=== PATIENT | male | born 1945 | race Caucasian/White ===

== ENCOUNTER → 2017-06-05 08:03 | Outpatient (CLI) | payer MEDICARE, BC, SELFPAY ==
[2017-06-05 13:36] LABS: Basophils % 0.6 % (0.1-2.0); Eosinophils # 0.2 K/mm3 (0.0-0.4); Eosinophils % 3.7 % (0.1-12.0); Hematocrit 41.1 % (42.0-52.0); Hemoglobin 13.4 g/dL (14.1-18.0); Lymphocytes # 0.9 K/mm3 (0.7-4.5); Lymphocytes % 15.7 K/mm3 (10-50); Mean Corpuscular HGB Conc 32.6 g/dL (31.8-35.4); Mean Corpuscular Hemoglobin 32.6 pg (27.0-31.2); Mean Corpuscular Volume 100.2 fl (80-94); Mean Platelet Volume 7.6 fl (7.4-10.4); Monocytes # 0.3 K/mm3 (0.1-1.0); Monocytes % 4.9 % (1.7-9.3); Neutrophils # 4.4 K/mm3 (1.8-7.8); Neutrophils % 75.2 % (37.0-80.0); Platelet Count 229 K/mm3 (142-424); Red Blood Count 4.11 M/mm3 (4.60-6.20); Red Cell Distribution Width 13.6 % (11.5-17.5); White Blood Count 5.8 K/mm3 (4.8-10.8)
[2017-06-05 13:42] LABS: Hemoglobin A1C 5.5 % (0.0-7.0)
[2017-06-05 14:09] LABS: Alanine Aminotransferase 30 U/L (12-78); Albumin Level 3.8 gm/dL (3.4-5.0); Albumin/Globulin Ratio 1.5 (1.1-1.8); Alkaline Phosphatase 48 U/L (46-116); Anion Gap 10.7 mEq/L (5-15); Aspartate Amino Transferase 18 U/L (15-37); Bilirubin,Total 0.7 mg/dL (0.2-1.0); Blood Urea Nitrogen 12 mg/dL (7-18); Calcium 8.8 mg/dL (8.5-10.1); Carbon Dioxide 29 mmol/L (21.0-32.0); Chol/HDL Ratio 1.9 (1-3.5); Cholesterol 140 mg/dL (140-200); Creatinine,Serum 1.17 mg/dL (0.70-1.30); Estimated Glomerular Filt Rate > 60 ml/min (>60); GFR (African American) > 60 ML/MIN (>60); Globulin 2.5 gm/dl (1.3-3.2); Glucose 101 mg/dL (74-106); HDL Cholesterol 75 mg/dL (27-67); LDL Cholesterol 57 mg/dL (0-130); Potassium 4.7 mmoL/L (3.5-5.1); Sodium 143 mmol/L (136-145); Total Protein,Serum 6.3 gm/dL (6.4-8.2); Triglycerides 41 mg/dL (30-200); VLDL Cholesterol 8 mg/dL (0-40)
[2017-06-05 14:32] LABS: Chloride 108 mmol/L (98-107)
== END ==
PROVIDERS: PCP Internal Medicine Adolescent Medicine; Visit Provider Internal Medicine Adolescent Medicine
DX: I10 Essential (primary) hypertension (principal); E78.5 Hyperlipidemia, unspecified; E11.9 Type 2 diabetes mellitus without complications
CPT/HCPCS: 36415; 80053; 80061; 83036; 85025

== ENCOUNTER → 2017-12-31 08:24 | Outpatient (CLI) | payer MEDICARE, BC, SELFPAY ==
[2017-12-31 14:01] LABS: Basophils % 0.6 % (0.1-2.0); Eosinophils # 0.2 K/mm3 (0.0-0.4); Eosinophils % 4.1 % (0.1-12.0); Hematocrit 44.7 % (42.0-52.0); Hemoglobin 14.7 g/dL (14.1-18.0); Lymphocytes % 24.3 K/mm3 (10-50); Mean Corpuscular HGB Conc 32.8 g/dL (31.8-35.4); Mean Corpuscular Hemoglobin 32.5 pg (27.0-31.2); Mean Corpuscular Volume 99.3 fl (80-94); Mean Platelet Volume 7.1 fl (7.4-10.4); Monocytes # 0.3 K/mm3 (0.1-1.0); Monocytes % 6.1 % (1.7-9.3); Neutrophils # 2.7 K/mm3 (1.8-7.8); Neutrophils % 64.9 % (37.0-80.0); Platelet Count 231 K/mm3 (142-424); Red Blood Count 4.51 M/mm3 (4.60-6.20); Red Cell Distribution Width 13.8 % (11.5-17.5); White Blood Count 4.2 K/mm3 (4.8-10.8)
[2017-12-31 14:09] LABS: Alanine Aminotransferase 35 U/L (12-78); Albumin Level 3.9 gm/dL (3.4-5.0); Albumin/Globulin Ratio 1.3 (1.1-1.8); Alkaline Phosphatase 52 U/L (46-116); Anion Gap 15.2 mEq/L (5-15); Aspartate Amino Transferase 19 U/L (15-37); Bilirubin,Total 0.7 mg/dL (0.2-1.0); Blood Urea Nitrogen 19 mg/dL (7-18); Calcium 9.4 mg/dL (8.5-10.1); Carbon Dioxide 27 mmol/L (21.0-32.0); Chloride 107 mmol/L (98-107); Chol/HDL Ratio 1.9 (1-3.5); Cholesterol 138 mg/dL (140-200); Creatinine,Serum 1.08 mg/dL (0.70-1.30); Estimated Glomerular Filt Rate 68 ml/min (>60); GFR (African American) 82 ML/MIN (>60); Glucose 103 mg/dL (74-106); HDL Cholesterol 71 mg/dL (27-67); LDL Cholesterol 55 mg/dL (0-130); Potassium 5.2 mmoL/L (3.5-5.1); Sodium 144 mmol/L (136-145); Total Protein,Serum 6.9 gm/dL (6.4-8.2); Triglycerides 60 mg/dL (30-200); VLDL Cholesterol 12 mg/dL (0-40)
[2017-12-31 14:14] LABS: Hemoglobin A1C 5.7 % (0.0-7.0)
== END ==
PROVIDERS: Visit Provider Internal Medicine Adolescent Medicine
DX: I10 Essential (primary) hypertension (principal); E11.9 Type 2 diabetes mellitus without complications; E78.5 Hyperlipidemia, unspecified
CPT/HCPCS: 36415; 80053; 80061; 83036; 85025

== ENCOUNTER → 2018-02-22 08:09 | Outpatient (CLI) | payer MEDICARE, BC, SELFPAY ==
[2018-02-22 14:23] LABS: Alanine Aminotransferase 32 U/L (12-78); Albumin Level 3.7 gm/dL (3.4-5.0); Albumin/Globulin Ratio 1.3 (1.1-1.8); Alkaline Phosphatase 55 U/L (46-116); Anion Gap 13.9 mEq/L (5-15); Aspartate Amino Transferase 15 U/L (15-37); Blood Urea Nitrogen 23 mg/dL (7-18); Calcium 8.9 mg/dL (8.5-10.1); Carbon Dioxide 29 mmol/L (21.0-32.0); Chloride 110 mmol/L (98-107); Creatinine,Serum 1.13 mg/dL (0.70-1.30); Estimated Glomerular Filt Rate 64 ml/min (>60); GFR (African American) 78 ML/MIN (>60); Globulin 2.9 gm/dl (1.3-3.2); Glucose 107 mg/dL (74-106); Potassium 4.9 mmoL/L (3.5-5.1); Sodium 148 mmol/L (136-145); Total Protein,Serum 6.6 gm/dL (6.4-8.2)
[2018-02-22 15:30] LABS: Basophils % 0.8 % (0.1-2.0); Eosinophils # 0.2 K/mm3 (0.0-0.4); Eosinophils % 3.5 % (0.1-12.0); Hemoglobin 13.9 g/dL (14.1-18.0); Lymphocytes # 1.2 K/mm3 (0.7-4.5); Lymphocytes % 24.4 K/mm3 (10-50); Mean Corpuscular HGB Conc 33.1 g/dL (31.8-35.4); Mean Corpuscular Hemoglobin 32.8 pg (27.0-31.2); Mean Corpuscular Volume 99.3 fl (80-94); Mean Platelet Volume 7.9 fl (7.4-10.4); Monocytes # 0.4 K/mm3 (0.1-1.0); Monocytes % 7.6 % (1.7-9.3); Neutrophils % 63.7 % (37.0-80.0); Platelet Count 223 K/mm3 (142-424); Red Blood Count 4.23 M/mm3 (4.60-6.20); White Blood Count 4.8 K/mm3 (4.8-10.8)
[2018-02-22 15:32] LABS: Hemoglobin A1C 5.2 % (0.0-7.0)
== END ==
PROVIDERS: PCP Internal Medicine Adolescent Medicine; Visit Provider Internal Medicine Adolescent Medicine
DX: E11.9 Type 2 diabetes mellitus without complications (principal); E78.5 Hyperlipidemia, unspecified
CPT/HCPCS: 36415; 80053; 83036; 85025

== ENCOUNTER → 2018-05-03 07:34 | Outpatient (CLI) | payer MEDICARE, BC, SELFPAY ==
[2018-05-03 13:52] LABS: Hemoglobin A1C 5.4 % (0.0-7.0)
[2018-05-03 14:08] LABS: Alanine Aminotransferase 32 U/L (12-78); Albumin Level 3.8 gm/dL (3.4-5.0); Albumin/Globulin Ratio 1.3 (1.1-1.8); Alkaline Phosphatase 48 U/L (46-116); Anion Gap 12.4 mEq/L (5-15); Aspartate Amino Transferase 21 U/L (15-37); Bilirubin,Total 0.9 mg/dL (0.2-1.0); Blood Urea Nitrogen 20 mg/dL (7-18); Calcium 9.1 mg/dL (8.5-10.1); Carbon Dioxide 29 mmol/L (21.0-32.0); Chloride 106 mmol/L (98-107); Chol/HDL Ratio 1.7 (1-3.5); Cholesterol 138 mg/dL (140-200); Creatinine,Serum 1.03 mg/dL (0.70-1.30); Estimated Glomerular Filt Rate 71 ml/min (>60); GFR (African American) 86 ML/MIN (>60); Glucose 105 mg/dL (74-106); HDL Cholesterol 81 mg/dL (27-67); LDL Cholesterol 49 mg/dL (0-130); Potassium 4.4 mmoL/L (3.5-5.1); Sodium 143 mmol/L (136-145); Total Protein,Serum 6.8 gm/dL (6.4-8.2); Triglycerides 42 mg/dL (30-200); Uric Acid 6.1 mg/dL (2.6-7.2); VLDL Cholesterol 8 mg/dL (0-40)
[2018-05-03 14:49] LABS: Basophils # 0.1 K/mm3 (0-0.2); Basophils % 1.1 % (0.1-2.0); Eosinophils # 0.2 K/mm3 (0.0-0.4); Eosinophils % 3.5 % (0.1-12.0); Hematocrit 44.4 % (42.0-52.0); Hemoglobin 14.4 g/dL (14.1-18.0); Lymphocytes # 1.1 K/mm3 (0.7-4.5); Lymphocytes % 24.9 % (10-50); Mean Corpuscular HGB Conc 32.4 g/dL (31.8-35.4); Mean Corpuscular Hemoglobin 32.3 pg (27.0-31.2); Mean Corpuscular Volume 99.6 fl (80-94); Mean Platelet Volume 7.8 fl (7.4-10.4); Monocytes # 0.3 K/mm3 (0.1-1.0); Neutrophils # 2.7 K/mm3 (1.8-7.8); Neutrophils % 63.4 % (37.0-80.0); Platelet Count 233 K/mm3 (142-424); Red Blood Count 4.46 M/mm3 (4.60-6.20); Red Cell Distribution Width 13.9 % (11.5-17.5); White Blood Count 4.3 K/mm3 (4.8-10.8)
== END ==
PROVIDERS: PCP Internal Medicine Adolescent Medicine; Visit Provider Internal Medicine Adolescent Medicine
DX: E11.9 Type 2 diabetes mellitus without complications (principal); E78.5 Hyperlipidemia, unspecified; M10.072 Idiopathic gout, left ankle and foot
CPT/HCPCS: 36415; 80053; 80061; 83036; 84550; 85025

== ENCOUNTER → 2018-08-13 07:25 | Outpatient (CLI) | payer MEDICARE, BC, SELFPAY ==
[2018-08-13 13:46] LABS: Basophils % 0.8 % (0.1-2.0); Eosinophils # 0.2 K/mm3 (0.0-0.4); Eosinophils % 3.7 % (0.1-12.0); Hematocrit 40.6 % (42.0-52.0); Lymphocytes # 1.1 K/mm3 (0.7-4.5); Mean Corpuscular HGB Conc 34.6 g/dL (31.8-35.4); Mean Corpuscular Hemoglobin 33.6 pg (27.0-31.2); Mean Corpuscular Volume 97.1 fl (80-94); Mean Platelet Volume 7.2 fl (7.4-10.4); Monocytes # 0.3 K/mm3 (0.1-1.0); Monocytes % 6.3 % (1.7-9.3); Neutrophils # 2.6 K/mm3 (1.8-7.8); Neutrophils % 63.2 % (37.0-80.0); Platelet Count 231 K/mm3 (142-424); Red Blood Count 4.18 M/mm3 (4.60-6.20); Red Cell Distribution Width 13.6 % (11.5-17.5); White Blood Count 4.2 K/mm3 (4.8-10.8)
[2018-08-13 15:12] LABS: Alanine Aminotransferase 35 U/L (12-78); Albumin Level 3.7 gm/dL (3.4-5.0); Albumin/Globulin Ratio 1.3 (1.1-1.8); Alkaline Phosphatase 56 U/L (46-116); Anion Gap 15.1 mEq/L (5-15); Aspartate Amino Transferase 26 U/L (15-37); Blood Urea Nitrogen 24 mg/dL (7-18); Calcium 8.9 mg/dL (8.5-10.1); Carbon Dioxide 25 mmol/L (21.0-32.0); Chloride 106 mmol/L (98-107); Chol/HDL Ratio 1.7 (1-3.5); Cholesterol 131 mg/dL (140-200); Creatinine,Serum 0.97 mg/dL (0.70-1.30); Estimated Glomerular Filt Rate 76 ml/min (>60); GFR (African American) 92 ML/MIN (>60); Globulin 2.9 gm/dl (1.3-3.2); Glucose 92 mg/dL (74-106); HDL Cholesterol 75 mg/dL (27-67); LDL Cholesterol 50 mg/dL (0-130); Potassium 4.1 mmoL/L (3.5-5.1); Sodium 142 mmol/L (136-145); Total Protein,Serum 6.6 gm/dL (6.4-8.2); Triglycerides 29 mg/dL (30-200); Uric Acid 6.4 mg/dL (2.6-7.2); VLDL Cholesterol 6 mg/dL (0-40)
[2018-08-13 16:02] LABS: Hemoglobin A1C 5.5 % (0.0-7.0)
== END ==
PROVIDERS: PCP Internal Medicine Adolescent Medicine; Visit Provider Internal Medicine Adolescent Medicine
DX: E11.9 Type 2 diabetes mellitus without complications (principal); M10.072 Idiopathic gout, left ankle and foot
CPT/HCPCS: 36415; 80053; 80061; 83036; 84550; 85025

== ENCOUNTER → 2018-11-05 07:47 | Outpatient (CLI) | payer MEDICARE, BC, SELFPAY ==
[2018-11-05 14:43] LABS: Alanine Aminotransferase 31 U/L (12-78); Albumin Level 3.7 gm/dL (3.4-5.0); Albumin/Globulin Ratio 1.3 (1.1-1.8); Alkaline Phosphatase 54 U/L (46-116); Anion Gap 15.5 mEq/L (5-15); Aspartate Amino Transferase 20 U/L (15-37); Bilirubin,Total 0.8 mg/dL (0.2-1.0); Blood Urea Nitrogen 27 mg/dL (7-18); Calcium 9.1 mg/dL (8.5-10.1); Carbon Dioxide 26 mmol/L (21.0-32.0); Chloride 106 mmol/L (98-107); Cholesterol 145 mg/dL (140-200); Creatinine,Serum 1.13 mg/dL (0.70-1.30); Estimated Glomerular Filt Rate 64 ml/min (>60); Free Thyroxine Index 1.6 ug/dL (5.93-13.13); GFR (African American) 77 ML/MIN (>60); Globulin 2.8 gm/dl (1.3-3.2); Glucose 104 mg/dL (74-106); HDL Cholesterol 72 mg/dL (27-67); LDL Cholesterol 59 mg/dL (0-130); Potassium 4.5 mmoL/L (3.5-5.1); Sodium 143 mmol/L (136-145); T4 (Thyroxine) 4.6 ug/dl (4.7-13.3); Thyroid Stimulating Hormone 4.37 uIU/ml (0.358-3.740); Total Protein,Serum 6.5 gm/dL (6.4-8.2); Triglycerides 68 mg/dL (30-200); Triiodothryronine (T3) Uptake 35 % (31-39); VLDL Cholesterol 14 mg/dL (0-40)
[2018-11-05 14:44] LABS: Hemoglobin A1C 5.2 % (0.0-7.0)
== END ==
PROVIDERS: PCP Internal Medicine Adolescent Medicine; Visit Provider Internal Medicine Adolescent Medicine
DX: E11.9 Type 2 diabetes mellitus without complications (principal); E78.5 Hyperlipidemia, unspecified; E01.0 Iodine-deficiency related diffuse (endemic) goiter
CPT/HCPCS: 36415; 80053; 80061; 83036; 84436; 84443; 84479

== ENCOUNTER → 2018-12-20 07:06 | Outpatient (CLI) | payer MEDICARE, BC, SELFPAY ==
[2018-12-20 13:43] LABS: Free Thyroxine Index 2.5 ug/dL (5.93-13.13); T4 (Thyroxine) 6.5 ug/dl (4.7-13.3); Thyroid Stimulating Hormone 1.32 uIU/ml (0.358-3.740); Triiodothryronine (T3) Uptake 39 % (31-39)
== END ==
PROVIDERS: PCP Internal Medicine Adolescent Medicine; Visit Provider Internal Medicine Adolescent Medicine
DX: E03.9 Hypothyroidism, unspecified (principal)
CPT/HCPCS: 36415; 84436; 84443; 84479

== ENCOUNTER → 2019-01-22 12:44 | Outpatient (CLI) | payer MEDICARE, BC, SELFPAY | PROVIDERS: PCP Internal Medicine Adolescent Medicine; Visit Provider Internal Medicine Adolescent Medicine | DX: G47.33 Obstructive sleep apnea (adult) (pediatric) (principal) ==

== ENCOUNTER → 2019-01-28 13:11 | Outpatient (CLI) | payer MEDICARE, BC, SELFPAY | PROVIDERS: PCP Internal Medicine Adolescent Medicine; Visit Provider Internal Medicine Adolescent Medicine | DX: G47.33 Obstructive sleep apnea (adult) (pediatric) (principal) | CPT/HCPCS: G0399 ==

== ENCOUNTER → 2019-03-03 07:39 | Outpatient (CLI) | payer MEDICARE, BC, SELFPAY ==
[2019-03-03 14:08] LABS: Basophils % 0.8 % (0.1-2.0); Eosinophils # 0.2 K/mm3 (0.0-0.4); Eosinophils % 3.8 % (0.1-12.0); Hematocrit 41.8 % (42.0-52.0); Hemoglobin 13.1 g/dL (14.1-18.0); Lymphocytes # 1.1 K/mm3 (0.7-4.5); Lymphocytes % 24.5 % (10-50); Mean Corpuscular HGB Conc 31.4 g/dL (31.8-35.4); Mean Corpuscular Hemoglobin 31.9 pg (27.0-31.2); Mean Corpuscular Volume 101.6 fl (80-94); Mean Platelet Volume 7.7 fl (7.4-10.4); Monocytes # 0.4 K/mm3 (0.1-1.0); Monocytes % 8.2 % (1.7-9.3); Neutrophils # 2.9 K/mm3 (1.8-7.8); Neutrophils % 62.7 % (37.0-80.0); Platelet Count 243 K/mm3 (142-424); Red Blood Count 4.12 M/mm3 (4.60-6.20); Red Cell Distribution Width 14.3 % (11.5-17.5); White Blood Count 4.6 K/mm3 (4.8-10.8)
[2019-03-03 14:55] LABS: Hemoglobin A1C 5.9 % (0.0-7.0)
[2019-03-03 15:01] LABS: Alanine Aminotransferase 30 U/L (12-78); Albumin Level 3.8 gm/dL (3.4-5.0); Albumin/Globulin Ratio 1.3 (1.1-1.8); Alkaline Phosphatase 50 U/L (46-116); Aspartate Amino Transferase 17 U/L (15-37); Bilirubin,Total 0.9 mg/dL (0.2-1.0); Blood Urea Nitrogen 24 mg/dL (7-18); Calcium 9.4 mg/dL (8.5-10.1); Chloride 105 mmol/L (98-107); Chol/HDL Ratio 1.9 (1-3.5); Cholesterol 137 mg/dL (140-200); Creatinine,Serum 1.18 mg/dL (0.70-1.30); Estimated Glomerular Filt Rate 61 ml/min (>60); GFR (African American) 74 ML/MIN (>60); Globulin 2.9 gm/dl (1.3-3.2); Glucose 102 mg/dL (74-106); HDL Cholesterol 73 mg/dL (27-67); LDL Cholesterol 47 mg/dL (0-130); Potassium 4.3 mmoL/L (3.5-5.1); Sodium 143 mmol/L (136-145); Thyroid Stimulating Hormone 1.29 uIU/ml (0.358-3.740); Total Protein,Serum 6.7 gm/dL (6.4-8.2); Triglycerides 84 mg/dL (30-200); VLDL Cholesterol 17 mg/dL (0-40)
[2019-03-03 15:13] LABS: Anion Gap 14.3 mEq/L (5-15); Carbon Dioxide 28 mmol/L (21.0-32.0)
== END ==
PROVIDERS: PCP Internal Medicine Adolescent Medicine; Visit Provider Internal Medicine Adolescent Medicine
DX: I10 Essential (primary) hypertension (principal); E11.9 Type 2 diabetes mellitus without complications; E78.5 Hyperlipidemia, unspecified
CPT/HCPCS: 36415; 80053; 80061; 83036; 84443; 85025

== ENCOUNTER → 2019-07-08 07:59 | Outpatient (CLI) | payer MEDICARE, BC, SELFPAY ==
[2019-07-08 13:34] LABS: Basophils % 0.9 % (0.1-2.0); Eosinophils # 0.2 K/mm3 (0.0-0.4); Eosinophils % 3.5 % (0.1-12.0); Hematocrit 40.6 % (42.0-52.0); Hemoglobin 13.7 g/dL (14.1-18.0); Lymphocytes # 0.8 K/mm3 (0.7-4.5); Lymphocytes % 17.9 % (10-50); Mean Corpuscular HGB Conc 33.7 g/dL (31.8-35.4); Mean Corpuscular Hemoglobin 33.6 pg (27.0-31.2); Mean Corpuscular Volume 99.6 fl (80-94); Mean Platelet Volume 8.1 fl (7.4-10.4); Monocytes # 0.3 K/mm3 (0.1-1.0); Monocytes % 5.7 % (1.7-9.3); Neutrophils # 3.3 K/mm3 (1.8-7.8); Neutrophils % 71.9 % (37.0-80.0); Platelet Count 272 K/mm3 (142-424); Red Blood Count 4.08 M/mm3 (4.60-6.20); Red Cell Distribution Width 13.8 % (11.5-17.5); White Blood Count 4.6 K/mm3 (4.8-10.8)
[2019-07-08 13:50] LABS: Alanine Aminotransferase 29 U/L (12-78); Albumin Level 3.8 gm/dL (3.4-5.0); Albumin/Globulin Ratio 1.5 (1.1-1.8); Alkaline Phosphatase 53 U/L (46-116); Anion Gap 14.5 mEq/L (5-15); Aspartate Amino Transferase 20 U/L (15-37); Bilirubin,Total 0.9 mg/dL (0.2-1.0); Blood Urea Nitrogen 20 mg/dL (7-18); Carbon Dioxide 28 mmol/L (21.0-32.0); Chloride 107 mmol/L (98-107); Chol/HDL Ratio 1.9 (1-3.5); Cholesterol 131 mg/dL (140-200); Creatinine,Serum 1.13 mg/dL (0.70-1.30); Estimated Glomerular Filt Rate 64 ml/min (>60); GFR (African American) 77 ML/MIN (>60); Globulin 2.6 gm/dl (1.3-3.2); Glucose 100 mg/dL (74-106); HDL Cholesterol 69 mg/dL (27-67); LDL Cholesterol 46 mg/dL (0-130); Potassium 4.5 mmoL/L (3.5-5.1); Sodium 145 mmol/L (136-145); Thyroid Stimulating Hormone 0.79 uIU/ml (0.358-3.740); Total Protein,Serum 6.4 gm/dL (6.4-8.2); Triglycerides 78 mg/dL (30-200); VLDL Cholesterol 16 mg/dL (0-40)
[2019-07-08 14:14] LABS: Hemoglobin A1C 5.3 % (0.0-7.0)
== END ==
PROVIDERS: PCP Internal Medicine Adolescent Medicine; Visit Provider Internal Medicine Adolescent Medicine
DX: E78.5 Hyperlipidemia, unspecified (principal); E11.9 Type 2 diabetes mellitus without complications; E03.9 Hypothyroidism, unspecified; I10 Essential (primary) hypertension
CPT/HCPCS: 36415; 80053; 80061; 83036; 84443; 85025

== ENCOUNTER → 2019-12-09 07:02 | Outpatient (CLI) | payer MEDICARE, BC, SELFPAY ==
[2019-12-09 13:35] LABS: Basophils % 0.8 % (0.1-2.0); Eosinophils # 0.2 K/mm3 (0.0-0.4); Eosinophils % 3.9 % (0.1-12.0); Hematocrit 41.5 % (42.0-52.0); Hemoglobin 14.2 g/dL (14.1-18.0); Lymphocytes % 18.9 % (10-50); Mean Corpuscular HGB Conc 34.2 g/dL (31.8-35.4); Mean Corpuscular Hemoglobin 34.3 pg (27.0-31.2); Mean Corpuscular Volume 100.2 fl (80-94); Mean Platelet Volume 8.4 fl (7.4-10.4); Monocytes # 0.3 K/mm3 (0.1-1.0); Monocytes % 6.5 % (1.7-9.3); Neutrophils # 3.6 K/mm3 (1.8-7.8); Platelet Count 233 K/mm3 (142-424); Red Blood Count 4.14 M/mm3 (4.60-6.20); Red Cell Distribution Width 14.3 % (11.5-17.5); White Blood Count 5.1 K/mm3 (4.8-10.8)
[2019-12-09 13:42] LABS: Alanine Aminotransferase 20 U/L (12-78); Albumin Level 4.3 g/dl (3.5-5.0); Albumin/Globulin Ratio 1.7 (1.1-1.8); Alkaline Phosphatase 61 U/L (38-126); Anion Gap 11.1 mEq/L (5-15); Aspartate Amino Transferase 30 U/L (17-59); Blood Urea Nitrogen 23 mg/dl (9-20); Calcium 9.5 mg/dl (8.4-10.2); Carbon Dioxide 28 mmol/L (22.0-30.0); Chloride 104 mmol/L (98-107); Chol/HDL Ratio 1.7 (1-3.5); Cholesterol 142 mg/dl (140-200); Estimated Glomerular Filt Rate 66 ml/min (>60); GFR (African American) 80 ML/MIN (>60); Globulin 2.6 g/dL (1.3-3.2); Glucose 107 mg/dl (74-100); HDL Cholesterol 85 mg/dl (40-60); Potassium 4.1 mmoL/L (3.5-5.1); Sodium 139 mmol/L (136-145); Total Protein,Serum 6.9 g/dl (6.3-8.2); Triglycerides 89 mg/dl (30-150); VLDL Cholesterol 18 mg/dL (0-40)
[2019-12-09 13:54] LABS: Direct LDL Cholesterol 46.64 mg/dL (100-129)
[2019-12-09 14:14] LABS: Thyroid Stimulating Hormone 2.28 uIU/mL (0.465-4.68)
[2019-12-09 15:30] LABS: Hemoglobin A1C 5.2 % (4.0-6.0)
== END ==
PROVIDERS: Visit Provider Internal Medicine Adolescent Medicine
DX: E11.9 Type 2 diabetes mellitus without complications (principal); E78.5 Hyperlipidemia, unspecified; E01.0 Iodine-deficiency related diffuse (endemic) goiter
CPT/HCPCS: 36415; 80053; 80061; 83036; 84443; 85025

== ENCOUNTER 2020-06-12 10:32 | Emergency (ER) | payer MEDICARE, BC, SELFPAY ==
[2020-06-12 10:50] VITALS: BP 140/73; PULSE 78; RESP 19; TEMP 36.6; O2SAT 100; BMI 24.6
--- NOTE | 2020-06-12 11:08 | HMH.EDUTC ---
[facility] [place] Clinical Impression: Exposure to COVID-19 virus Disposition: Home, Self-Care Condition on Discharge: Good Instructions: DI for COVID-19 (Suspected or Confirmed ), COVID-19: Testing and Tracing, Preventing the Spread of Coronavirus Discharge Instructions Additional Instructions: *Monitor Temp, Over the counter Motrin or Tylenol as directed/as needed Tylenol every 4 hours and Motrin every 6 hours (as long as your family doctor has told you that you can take it) for fever or pain. and straight to ER if unable to lower temp less than 101.0 after medication given Follow up IMMEDIATELY for new or worsening symptoms or no Noticeable improvement over the next 48-72 hours. 911 for difficulty breathing or swallowing You were tested for today for COVID19 your test result should be back in the next 24-48 hours, you may call to the [facility] to see if your test results are back in the next 48 hours [phone] [facility] hours are 9am-9pm You was given a handout with instructions for Self Quarantine and Self isolation for while you wait on test results and what to do if they are positive If you are positive the Health Dept will be contacting you also Referrals: Jaron Bahena MD [Primary Care Provider] - As needed Time of Disposition: 11:09 Medical Decision Making - Jagdish Inquiry Pt receiving controlled substance: No Jagdish was queried for this patient: No Vital Signs: 06/12/20 10:50 06/12/20 11:10 Temperature 97.8 F 97.8 F Temperature Source Oral Pulse Rate 78 Pulse Rate [Left Brachial] 78 Respiratory Rate 19 19 Blood Pressure 140/73 Blood Pressure [Left Arm] 140/73 Blood Pressure Mean [Left Arm] 95 Blood Pressure Source [Left Arm] Automatic Cuff Blood Pressure Position [Left Arm] Sitting 02 Sat by Pulse Oximetry 100 Oxygen Delivery Method Room Air Orders (Tests/Meds): ORDERS Category Date Time Status Covid-19 Nasal PCR ([facility]) Routine Lab 06/12/20 10:34 Ordered [facility] [place] - General Stated complaint: Covid test Time Seen by Provider: 06/12/20 11:08 Mode of Arrival: Ambulatory Source of Information: Patient Limitations: No Limitations Description of Symptoms (Recalled from Triage Doc. by RN): COVID TEST D/T EXPOSURE; DENIES SYMPTOMS HEENT Symptoms (Recalled from RN notes): No Resp Symptoms (Recalled from RN notes): No Skin Symptoms (Recalled from RN notes): No MS Symptoms (Recalled from RN notes): No Functional Status (Recalled from RN notes): WNL - History of Present Illness Provider Complaint: Patient state that he was recently around his daughter in law that tested positive for COVID States that he isnt having any symptoms but due to close contact wanted to get tested - Related Data Allergies Allergy/AdvReac Type Severity Reaction Status Date / Time No Known Allergies Allergy Verified 06/12/20 11:05 - Worker's Comp Is this a Worker's Comp case?: No H History - Hepatitis A Screen Drug use history?: No High risk sexual behaviors?: No History of sexually transmitted infection?: No Currently employed?: No Childcare worker?: No Do you have indoor plumbing?: Yes Do you have electricity?: Yes Attestation statement:: This patient has been screened for Hepatitis A risk factors. I have reviewed the patient's past medical history: Yes - Social History Alcohol Intake: never Occupational Status: other ROS Obtained: Yes All systems reviewed & no additional complaints, Yes Systems reviewed as appropriate & no additional complaints - Constitutional Constitutional: Reports system reviewed and no additional complaints, except as docu, Denies body ache, Denies chills, Denies fever(s), Denies headache(s) - ENT Ears, Nose, Mouth, and Throat: Reports system reviewed and no additional complaints, except as docu - Cardiovascular Cardiovascular: Reports system reviewed and no additional complaints, except as docu Physical Exam - General General appearance: alert, in no bonita
[2020-06-12 11:10] VITALS: BP 140/73; PULSE 78; RESP 19; TEMP 36.6; O2SAT 100
== END 2020-06-12 11:13 | disposition home or self-care (01) ==
PROVIDERS: Emergency Provider Nurse Practitioner; PCP Internal Medicine Adolescent Medicine
DX: Z20.822 Contact with and (suspected) exposure to COVID-19 (principal)
CPT/HCPCS: 99202; G0463; U0003

== ENCOUNTER → 2020-08-03 11:13 | Outpatient (CLI) | payer MEDICARE, BC, SELFPAY ==
[2020-08-04 12:45] LABS: Alanine Aminotransferase 25 U/L (12-78); Albumin Level 4.3 g/dl (3.5-5.0); Albumin/Globulin Ratio 1.5 (1.1-1.8); Alkaline Phosphatase 67 U/L (38-126); Anion Gap 13.2 mEq/L (5-15); Aspartate Amino Transferase 28 U/L (17-59); Bilirubin,Total 0.9 mg/dl (0.2-1.3); Blood Urea Nitrogen 17 mg/dl (9-20); Calcium 9.8 mg/dl (8.4-10.2); Carbon Dioxide 27 mmol/L (22.0-30.0); Chloride 106 mmol/L (98-107); Chol/HDL Ratio 1.7 (1-3.5); Cholesterol 132 mg/dl (140-200); Estimated Glomerular Filt Rate 73 ml/min (>60); GFR (African American) 89 ML/MIN (>60); Globulin 2.8 g/dL (1.3-3.2); Glucose 95 mg/dl (74-100); HDL Cholesterol 79 mg/dl (40-60); Potassium 5.2 mmoL/L (3.5-5.1); Sodium 141 mmol/L (136-145); Total Protein,Serum 7.1 g/dl (6.3-8.2); Triglycerides 68 mg/dl (30-150); VLDL Cholesterol 14 mg/dL (0-40)
[2020-08-04 12:56] LABS: Direct LDL Cholesterol 37.71 mg/dL (100-129)
[2020-08-04 13:14] LABS: Thyroid Stimulating Hormone 1.27 uIU/mL (0.465-4.68)
[2020-08-04 13:43] LABS: Hemoglobin A1C 5.4 % (4.0-6.0)
== END ==
PROVIDERS: Visit Provider Internal Medicine Adolescent Medicine
DX: E11.9 Type 2 diabetes mellitus without complications (principal); E78.5 Hyperlipidemia, unspecified; E01.0 Iodine-deficiency related diffuse (endemic) goiter
CPT/HCPCS: 80053; 80061; 83036; 84443

== ENCOUNTER → 2021-02-08 20:47 | Outpatient (CLI) | payer MEDICARE, BC, SELFPAY ==
[2021-02-08 21:30] LABS: Alanine Aminotransferase 20 U/L (12-78); Albumin Level 4.1 g/dl (3.5-5.0); Albumin/Globulin Ratio 1.7 (1.1-1.8); Alkaline Phosphatase 48 U/L (38-126); Anion Gap 15.8 mEq/L (5-15); Aspartate Amino Transferase 24 U/L (17-59); Bilirubin,Total 0.8 mg/dl (0.2-1.3); Blood Urea Nitrogen 20 mg/dl (9-20); Calcium 9.5 mg/dl (8.4-10.2); Carbon Dioxide 27 mmol/L (22.0-30.0); Chloride 105 mmol/L (98-107); Cholesterol 133 mg/dl (140-200); Estimated Glomerular Filt Rate 66 ml/min (>60); GFR (African American) 79 ML/MIN (>60); Globulin 2.4 g/dL (1.3-3.2); Glucose 93 mg/dl (74-100); HDL Cholesterol 67 mg/dl (40-60); Potassium 4.8 mmoL/L (3.5-5.1); Sodium 143 mmol/L (136-145); Total Protein,Serum 6.5 g/dl (6.3-8.2); Triglycerides 72 mg/dl (30-150); VLDL Cholesterol 14 mg/dL (0-40)
[2021-02-08 21:41] LABS: Direct LDL Cholesterol 49.95 mg/dL (100-129)
[2021-02-10 08:09] LABS: Hemoglobin A1C 5.4 % (4.0-6.0)
== END ==
PROVIDERS: Visit Provider Internal Medicine Adolescent Medicine
DX: E11.9 Type 2 diabetes mellitus without complications (principal); E78.5 Hyperlipidemia, unspecified
CPT/HCPCS: 80053; 80061; 83036

== ENCOUNTER 2022-04-11 06:14 | Day surgery (SDC) | payer MEDICARE, BC, SELFPAY ==
[2022-04-06 11:53] VITALS: BMI 24.3
[2022-04-11] VITALS (7 sets, daily range): BP systolic 119–148; BP diastolic 60–73; PULSE 60–65; RESP 16–18; TEMP 36.6–36.8; O2SAT 97–100
== END 2022-04-11 08:16 | disposition home or self-care (01) ==
LOC: OR 06:15
PROVIDERS: PCP Internal Medicine Adolescent Medicine; Visit Provider Ophthalmology
DX: H25.813 Combined forms of age-related cataract, bilateral (principal)
CPT/HCPCS: 66984; V2632

== ENCOUNTER → 2022-09-28 07:09 | Outpatient (CLI) | payer MEDICARE, SELFPAY ==
--- NOTE | 2022-09-28 07:14 | CT_ITS ---
FINAL REPORT TECHNIQUE: Axial CT images of the chest were obtained without contrast. Low-dose protocol was utilized. This study was performed with techniques to keep radiation doses as low as reasonably achievable (ALARA). Individualized dose reduction techniques using automated exposure control or adjustment of mA and/or kV according to the patient's size were employed. CLINICAL HISTORY: H/O TOBACCO USE former smoker quit 13 years ago, 2.5ppd x43 years COMPARISON: none FINDINGS: CT CHEST WITHOUT, LOW DOSE SCREENING CT Di Vol: 2.90 mGy DLP: 96.38 mGy*cm No evidence of mediastinal or hilar mass. There are calcified mediastinal and right hilar nodes. There is a left subclavian pacer. The heart size is normal. Moderate to severe coronary artery calcifications are noted. There is no pleural or pericardial effusion. The lung windows show scattered small lung nodules including a 2 mm superior segment left lower lobe nodule on image 42 and a 5 mm nodule posterior left lower lobe on image 58. There are several other small nodules. There is mild emphysema and mild scarring. Several calcified granulomas are present. Limited images of the upper abdomen are unremarkable. IMPRESSION: Several less than 5 mm pulmonary nodules. LR Category 2: 12 month follow-up low-dose chest CT is recommended. Reviewed, Interpreted and Dictated by Rafael Gtz III, MD Transcribed by Erma Archer Authenticated and [facility]
== END ==
PROVIDERS: PCP Internal Medicine Adolescent Medicine; Visit Provider Internal Medicine Adolescent Medicine
DX: Z87.891 Personal history of nicotine dependence (principal); Z12.2 Encounter for screening for malignant neoplasm of respiratory organs
CPT/HCPCS: 71271

== ENCOUNTER 2023-05-30 10:10 | Day surgery (SDC) | payer MEDICARE, SELFPAY ==
[2023-04-24 12:10] VITALS: BMI 23.8
[2023-05-30] VITALS (7 sets, daily range): BP systolic 103–175; BP diastolic 54–85; PULSE 60–82; RESP 14–18; TEMP 36.1–36.6; O2SAT 96–98
[2023-05-30] MEDS: LACTATED RINGERS 1000ML 1,000 ML 100 ML IV (10:44)
--- NOTE | 2023-05-30 10:49 | P.PNANES_ITS ---
[facility] Disclaimer: The information contained in this section may have been updated after the patient was seen, as this information can be updated by other users. Medical History Depression Gout Hemorrhoid History of cataract History of COVID-19 Hyperlipidemia Hypertension Pacemaker Parkinson disease Uses hearing aid Surgical History History of carpal tunnel surgery History of knee surgery History of surgery Family History Other Cancer Family history of cerebral hemorrhage Family history of hypertension Social History Smoking Status: Former smoker years smoked: 45 how long ago did patient quit smokin YEARS AGO alcohol intake: current substance use type: denies use current occupational status: retired Travel in the last 8 weeks: None caffeine: Yes [facility] Anesthesia Checklist Patient Identification Patient Identification: Arm Band and Verbal (Name & ) Structural Data Admitted From: Home Planned Operative Procedure/s: Colonoscopy Consent for Planned Operative Procedure(s) Verified: Yes NPO Status Verified Time NPO: 00:00 Additional verifications Anesthesia Reactions: No Airway Assessment Mallampati Score:: Class III C-Spine Mobility Assessed: Yes TMJ Mobility Assessed: Yes Dentition: Good Dentition Neurological Assessment Level of Consciousness: Awake Hx Seizures: No Numbness or tingling in extremities: No Anesthesia Plan Anesthesia Risk discussed: Yes Anesthesia Plan: Verified ASA Class: II Anesthesia Type: MAC
--- NOTE | 2023-05-30 12:15 | HMH.SCOPE ---
Procedure: Date: 05/30/23 Patient Date of :: 1945 Procedure Performed:: Colonoscopy Indications:: The patient is a 78-year-old who presents for colonoscopy for having a positive Cologuard test Performing Provider:: Benigno Lewis MD Referring Provider:: Jaron Bahena MD Sedation:: See RN records Procedure:: After placing the patient in the left lateral decubitus position, the colonoscopy was gently inserted into the rectum and under direct visualization advanced to the cecum which was identified by transillumination in the right lower quadrant, identification of the ileocecal valve, appendiceal orifice, and cecal strap. Color, texture, mucosa, and anatomy of the colon were carefully examined with the scope. Findings:: Anal canal: normal Rectum: Hemorrhoids Sigmoid colon: Sessile polyp less than 5 mm in size. Removed with cold snare polypectomy. Large mouthed diverticula. The sigmoid colon was angulated Descending colon: normal without polyps or inflammatory changes Splenic flexure: normal Transverse colon: normal without polyps or inflammatory changes Hepatic flexure: normal Ascending colon: Diverticulosis Cecum: normal Terminal ileum: not visualized Impression: Polyp of sigmoid colon Diverticulosis Tortuous sigmoid colon Recommendations:: Await pathology results Higher fiber diet Complications:: None Estimated blood obtained (mL): 0 Colonoscopy Component Colonoscopy Component Was a colonoscopy performed during today's procedure?: Yes Recommended follow up colonoscopy of at least 10 years?: No If no, follow up colonoscopy recommended in ___ years?: See below Reason for not recommending >/= 10 yr follow-up interval?: No further screening to be recommended due to age
== END 2023-05-30 12:55 | disposition home or self-care (01) ==
PROVIDERS: PCP Internal Medicine Adolescent Medicine; Visit Provider Internal Medicine
PROC: (CPT 45385; principal; 2023-05-30 12:00)
DX: R19.5 Other fecal abnormalities (principal); K64.8 Other hemorrhoids; K57.30 Diverticulosis of large intestine without perforation or abscess without bleeding; K56.2 Volvulus; K63.5 Polyp of colon
CPT/HCPCS: 45385

== ENCOUNTER 2024-12-24 06:38 | Outpatient (CLI) | payer MEDICARE, SELFPAY ==
--- OUTSIDE RECORDS SUMMARY | 2024-09-06 17:30 | XMS_ITS ---
Author Organization [facility] Address [address] [facility] [address] [place] [address] Care Team Providers Care Personal Injury Attorney Name Role Phone JyotiJaron leigh Primary Care Provider [phone] Migration, Provider Unavailable Unavailable Allergies Allergen (clinical drug ingredient) Drug/Non Drug Allergy documented on EMR Reaction Allergy Type Onset Date Status Sulfamethoxazole Unknown Drug Allergy Active REASON FOR VISIT [facility] To [facility] Conversion Encounter Medications Medication SIG (Take, Route, [...] Active Encounters Encounter [facility] Date [facility] [address] [facility] [address] [place] [address] 09/06/2024 Provider Migration Plan Of Treatment Next Appt Details Provider Name:Jaron Bahena, 12/30/2024 09:30:00 AM, [address] [place] [address], [id number], Progress Notes * Briseyda BRITT JR BDOB: [birth year] (79 yo M)Acc No.[id number]:09/06/2024 Patient: Nabeel EVITA SHIELDS Briseyda Dixon Provider: Shaila sorto Migration :1945 A ge:79 Y S ex:Male Date:09/06/2024 Address:[address] [place], [place] [id number] Pcp:Jaron Bahena Subjective: * Chief Complaints: * [...] Electronic signature of Prov shari Migration on 12/24/2024 at 06:43 AM EDT Sign off status: Pending * Provider: Shaila sorto Migration Date: 09/06/2024 Generated for Thomas nelson/Isabella/Luis on: 12/24/2024 06:43 AM EDT
--- OUTSIDE RECORDS SUMMARY | 2024-11-17 08:20 | XMS_ITS | Encounter Summary ---
Author Organization [facility] Address [address] [id number] Care Team Providers Care Hand Straightener Name Role Phone Jaron Bahena MD Primary Care Provider [phone] Reason for Referral * Consultation (Routine) - Authorized Specialty Diagnoses / Procedures Referred By Shantell cotton Referred To Contact Urology Diagnoses Urinary frequency Jeffery Navarrete MD [address] [address] Phone: tel: fax: [facility] [address] [facility], [address] [place] [address] Phone: tel: fax: Referral ID Status Reason Start Date Expiration Date Visits Requested Visits Authorized [id number] Authorized Specialty Services Required 11/17/2024 05/19/2026 1 1 Scheduling Instructions Urinary hesitancy, frequency, nocturia. * Imaging (Routine) - Pending Review Specialty Diagnoses / Procedures Referred By Shantell cotton Referred To Contact Radiology Diagnoses Dementia associated with other underlying disease, with psychotic disturbance, unspecified dementia severity Parkinson's disease 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 (CMS/HCC) Procedures MR Head wo IV Contrast Jeffery Navarrete MD [address] [place] [phone] Phone: tel: fax: Referral ID Status Reason Start Date Expiration Date V isits Requested Visits Authorized [id number] Pending Review 11/17/2024 05/19/2026 1 1 Reason for Visit * Consultation (Routine) - Closed Specialty Diagnoses / Procedures Referred By Contac t Referred To Contact Neurology Diagnoses Parkinson's disease without dyskinesia, with fluctuations (CMS/HCC) Jaron Bahena MD [address] [place] [address] Phone: tel: fax: Referral ID Status Reason Start Date Expiration Date V isits Requested Visits Authorized [id number] Closed Specialty Services Required 01/22/2024 07/23/2025 1 1 Encounter Details Date Type Department Care Team (Late st Contact Info) Description 11/17/2024 8:20 AM EDT Consult [facility] [address] [place] [address] Jeffery Navarrete MD [address] [facility] [address] [place] [address] Dementia associated with other underlying disease, with psychotic disturbance, unspecified dementia severity (Primary Dx); Parkinson's disease 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 (CMS/HCC); Urinary frequency Social History Tobacco Use Types Packs/Day Years Used Date Smoking Tobacco: Former Cigarettes Smokeless Tobacco: Never Tobacco Cessation:Counseling Given: Not Answered Alcohol Use Standard Drinks/Week Comments Yes 0 (1 standard drink = 0.6 oz pur e alcohol) Sex and Gender Information Value Date Recorded Sex Assigned at Not on file Legal Sex Male 7:37 PM EDT Gender Identity Not on file Sexual Orientation Not on file documented as of this encounter Last Filed Vital Signs Vital Sign Reading Time Taken Comments Blood Pressure 112/62 11/17/2024 8:22 AM EDT Pulse 64 11/17/2024 8:22 AM EDT Temperature - - Respiratory Rate - - Oxygen Saturation 97% 11/17/2024 8:22 AM EDT Inhaled Oxygen Concentration - - Weight 83.3 kg (183 lb 10.3 oz) 11/17/2024 8:22 AM EDT Height 185.7 cm (6' 1.11 ) 11/17/2024 8:22 AM ED T Body Mass Index 24.16 11/17/2024 8:22 AM EDT documented in this encounter Miscellaneous Notes * Progress Notes - Jeffery Navarrete MD - 11/17/2024 8:20 AM EDT Dear Jaron Bahena MD, I had the pleasure of seeing Briseyda Hector who is a 79 y.o. male being seen at the [facility] today for Parkinson's disease. HPI 79 year old man with hypothyroidism, HTN, gout, PD presented for management of parkinsonism. Referred by PCP: Dr. Jaron Bahena. Was following with Dr. Khoa Caceres. He is here with his . Is working part-time. Allergic to Sulfa. No family hx of neurological disorders. Is on Synthroid 50 mcg daily, C/L 1 tab BID. RUE tremor was the first symptom in 2019. Later noted dragging feet when walking. Denies any falls. Also has thought blocks for 5 years and it is bothersome. Also c/o visual hallucinations for 5 years. C/o urinary frequency and nocturia which disturbs sleeps (average wakes up about 9 times per night). Denies urinary incontinence and urinary urgency. No help with tamsulosin. C/o occasional lightheadedness. Denies choking episodes. Denies constipations. RBDs and depression: present. thinks that C/L initiation has led to development of hallucinations. Levodopa: Occasionally helps with tremor. Denies adverse effects. O/E: RUE resting tremor Masked face Decreased eyeblink frequency Hypophonia Jaw tremor. R>L bradykinesia R>L rigidity. Shuffling gait, no freezing. Normal coordination No cortical signs on exam. 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 PLAN: B12, TSH, RPR, Folate MRI brain w/o contrast Refer to urologist Future: consider FDG-PET scan. Hold off on Sinemet. Future: consider starting Aricept. F/u in 6 weeks. Social History Tobacco Use Smoking status: Former Types: Cigarettes Smokeless tobacco: Never Substance Use Topics Alcohol use: Yes Medications Ordered Prior to Encounter[1] Allergies[2] All medications have been reviewed today. Review of Systems All other systems reviewed and are negative. Objective Vitals: 11/17/24 0822 BP: 112/62 Pulse: 64 SpO2: 97% Assessment & Plan Dementia associated with other underlying disease, with psychotic disturbance, unspecified dementiaseverity Orders: Vitamin B12, Serum; Future Folate; Future RPR With Reflex to Titer (Those With Known Syphilis); Future TSH; Future MR Head wo IV Contrast; Future Parkinson's disease 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 (CMS/HCC) Orders: Vitamin B12, Serum; Future Folate; Future RPR With Reflex to Titer (Those With Known Syphilis); Future TSH; Future MR Head wo IV Contrast; Future Urinary frequency Orders: Ambulatory referral to Urology; Future Counseling Documentation: The patient and was counseled regarding risks and benefit of treatment options, instructions for management, patient and family education, and impressions. Education provided was verbal counseling. Additional time was spent in care coordination including medical record review. The total time of encounter was 60 minutes and greater than 50% of the visit was spent in counseling/coordination of care. . [1] Current Outpatient Medications on File Prior to Visit Medication Sig Dispense Refill allopurinol (Zyloprim) 100 MG tablet Take 1 tablet by mouth daily. amLODIPine (Norvasc) 5 MG tablet Take 1 tablet by mouth daily. aspirin 81 MG EC tablet Take 1 tablet by mouth 1 time each day. atorvastatin (Lipitor) 40 MG tablet Take 1 tablet by mouth 1 time each day. carbidopa-levodopa (Sinemet) 25-100 MG tablet Take 2 tablets by mouth daily. cholecalciferol (Vitamin D-3) 25 MCG (1000 UT) capsule Take 1 capsule by mouth 1 time each day. cyanocobalamin (Vitamin B-12) 2500 MCG tablet Take 500 mcg by mouth 1 time each day. levothyroxine (Synthroid, Levoxyl) 50 MCG tablet Take 1 tablet by mouth daily. lisinopril 5 MG tablet Take 1 tablet by mouth daily. metoprolol succinate XL (Toprol-XL) 50 MG 24 hr tablet Take 25 mg by mouth daily. uzfclkxgvacl-pmgkonyf-uhqgp acid-coenzyme q10 (Preservision AREDS 2) capsule Take 1 capsule by mouth daily. pantoprazole (Protonix) 40 MG EC tablet Take 1 tablet by mouth 1 time each day. tamsulosin (Flomax) 0.4 MG 24 hr capsule Take 1 capsule by mouth daily. No current facility-administered medications on file prior to visit. [2] Allergies Allergen Reactions Sulfa Drugs Unknown - Patient states they do not know rxn details Sulfamethoxazole Unknown - Patient states they do not know rxn details Other Reaction(s): Unknown documented in this encounter Plan of Treatment Upcoming Encounters Date Type Department Care Team (Late st Contact Info) Description 12/29/2024 9:40 AM EDT Office Visit [facility] [address] [place] [address] Jeffery Navarrete MD [address] [place] [address] 01/05/2025 2:30 PM EDT Consult [facility] [address] [place] [address] NoKeisha silva M, [employer]DER[employer] [address] [place] [address] Scheduled Orders Name Type Priority Associated Diagnoses Orde r Schedule MR Head wo IV Contrast Imaging Routine Dementia associated with other underlying disease, with psychotic disturbance, unspecified dementia severity Parkinson's disease 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 ([facility]) Expected: 11/17/2024 (Approximate), Expires: 05/21/2026 Scheduled Referrals Name Type Priority Associated Diagnoses Order Schedule Ambulatory referral to Urology Outpatient Referral Routine Urinary frequency Expected: 11/17/2024 (Approximate), Expires: 05/21/2026 documented as of this encounter Results * TSH (11/17/2024 9:52 AM EDT) Thyroid Stimulating Hormone, Plasma 2.12 0.40 - 4.20 uIU/mL 11/17/2024 11:25 AM EDT [facility] Blood Venous blood specimen / Unknown Venipuncture / Unknown 11/17/2024 9:52 AM EDT 11/17/2024 9:53 AM EDT us Jeffery Navarrete MD LAB BLOOD ORDERABLES Final Resul t Performing Organization Address City/[facility]/ZIP Co de Phone Number [facility] [address] [place] [address] * RPR With Reflex to Titer (Those With Known Syphilis) (11/17/2024 9:52 AM EDT) Rapid Plasma Reagin Nonreactive Non Reactive 11/18/2024 1:20 AM EDT [facility] Blood Venous blood specimen / Unknown Venipuncture / Unknown 11/17/2024 9:52 AM EDT 11/17/2024 9:53 AM EDT us Jeffery Navarrete MD LAB BLOOD ORDERABLES Final Resul t Performing Organization Address City/[facility]/ZIP Co de Phone Number [facility] [address] [place] [address] * Folate (11/17/2024 9:52 AM EDT) Folate, Serum >20.0 >4.6 ng/mL 11/17/2024 12:22 PM EDT [facility] Blood Venous blood specimen / Unknown Venipuncture / Unknown 11/17/2024 9:52 AM EDT 11/17/2024 9:53 AM EDT us Jeffery Navarrete MD LAB BLOOD ORDERABLES Final Resul t [facility] [address] [place] [address] * Vitamin B12, Serum (11/17/2024 9:52 AM EDT) Vitamin B12, Serum 865 210 - 1,033 pg/mL 11/17/2024 12:22 PM EDT [facility] Blood Venous blood specimen / Unknown Venipuncture / Unknown 11/17/2024 9:52 AM EDT 11/17/2024 9:53 AM EDT us Jeffery Navarrete MD LAB BLOOD ORDERABLES Final Resul t [facility] [address] [place] [address] documented in this encounter Visit Diagnoses Diagnosis Dementia associated with other underlying disease, with psychotic disturbance, unspecified dementia severity- Primary Parkinson's disease 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 (CMS/HCC) Urinary frequency documented in this encounter Additional Health Concerns Assessment Noted Time A fall risk assessment has been complete d for the patient 11/17/2024 8:26 AM EDT A Body Mass Index follow-up plan has been documented for the patient 11/19/2024 1:52 PM EDT documented as of this encounter Care Teams Hand Straightener Relationship Specialty Start Date End Date Jaron Bahena MD [address] [place] [address] PCP - General 10/15/20 documented as of this encounter
--- OUTSIDE RECORDS SUMMARY | 2024-11-25 07:30 | XMS_ITS ---
Author Organization [facility] Address [address] [facility] [address] [place] [address] Care Team Providers Care Soa Integration Developer Name Role Phone David Bahenahen Primary Care Provider Allergies Allergen (clinical drug ingredient) Drug/Non Drug Allergy documented on EMR Reaction Allergy Type Onset Date Status Sulfamethoxazole Unknown Drug Allergy Active REASON FOR VISIT soa, dizziness, fatigue , speech slurred Medications Medication SIG (Take, Route, Frequency, Duration) Notes Start Date End Date Status Metoprolol Succinate ER 50 MG TAKE 1/2 TABLET ORALLY ONCE A DAY 90 DAYS; Duration: 90 Active amLODIPine Besylate 5 MG 1 tab(s) orally once a day; Duration: 90 days Active Atorvastatin Calcium 40 MG 1 tab(s) orally once a day; Duration: 90 days Active Allopurinol 100 MG 1 tab(s) orally once a day; Duration: 90 days Active Levothyroxine Sodium 50 MCG 1 tab(s) orally once a day; Duration: 90 days Active Farxiga 10 MG 1 tab(s) orally once a day; Duration: 90 days 12/11/2023 Active Lisinopril 5 MG 1 tab(s) orally once a day; Duration: 90 days Active Pantoprazole Sodium 40 MG 1 tab(s) orally once a day; Duration: 90 days Active Aspirin 81 MG 1 cap(s) orally once a day; Duration: 90 days Active ACCU CHECK GLUCOMETER USE DIRECTED E11.9 *Ple ase review for potential replacement for e-prescription and drug interaction check* 05/07/2017 Active Vitamin D3 25 MCG (1000 UT) as directed orally once a day; Duration: 30 day(s) Active B-12 2500 MCG 1 tab(s) sublingually once a day; Duration: 30 day(s) Active ACCU CHECK SOFT CLICK LANCETS DIRECTED ONCE DAILY; Duration: 30 DAYS E11.9 *Please review for potential replacement for e-prescription and drug interaction check* 05/07/2017 Active ACCU CHECK TEST STRIPS DIRECTED ONCE DAILY; Duration: 30 DAYS E11.9 *Please review for potential replacement for e-prescription and drug interaction check* 05/07/2017 Active GLUCOMETER WITH LANCETS AND TEST STRIPS DX: E11.9 DIRECTED TWICE A DAY *Please review for potential replacement for e-prescription and drug interaction check* 06/05/2014 Active Tamsulosin HCl 0.4 MG 1 cap(s) orally once a day; Duration: 90 days 04/08/2024 Active Vital Signs Temperature 97.5 degrees Fahrenheit 11/26/19 25 Blood pressure systolic 118 mm Hg 11/26/19 25 Blood pressure diastolic 74 mm Hg 025 Heart Rate 68 /min 11/25/2024 Height 69 in 11/25/2024 Weight 185 lbs 11/25/2024 BMI 27.32 kg/m2 11/25/2024 Oximetry 98 11/25/2024 Encounters Encounter Location Date Provider Diagnosis [address] [address] 11/25/2024 Jaronjomar Bahena Pacemaker Z95.0 ; Exertional dyspnea R06.09 and Parkinson's disease without dyskinesia, unspecified whether manifestations fluctuate G20.A1 Assessments Encounter Date Diagnosis (ICD Code) Assessment Notes Treatment Notes Treatment Clinical Notes Section Notes 11/25/2024 Pacemaker (ICD-10 - Z95.0) EKG done in office showing appropriate atrial and ventricular pacemaker spikes. Rate seems normal. Reassured, but does need pacemaker check definitely tomorrow. See notes below 11/25/2024 Exertional dyspnea (ICD-10 - R06.09) Exertional dyspnea does not seem to be from fluid overload. They will discuss this with cardiology tomorrow and come back to me in a couple of weeks. Consider further workup at that point. 11/25/2024 Parkinson's disease without dyskinesia, unspecified whether manifestations fluctuate (ICD-10 - G20.A1) I reviewed urology notes. I have asked them to discuss with cardiology tomorrow his pacemaker and where MRI can safely be done. He will see neurology at back in January and will follow along about whether or not further medication will be trialed. To me patient's tremor seems worse off Sinemet. Plan Of Treatment Treatment Notes Assessment Notes Pacemaker EKG done in office showing appropriate atrial and ventricular pacemaker spikes. Rate seems normal. Reassured, but does need pacemaker check definitely tomorrow. See notes below Exertional dyspnea Exertional dyspnea does not seem to be from fluid overload. They will discuss this with cardiology tomorrow and come back to me in a couple of weeks. Consider further workup at that point. Parkinson's disease without dyskinesia, unspecified whether manifestations fluctuate I reviewed urology notes. I have asked them to discuss with cardiology tomorrow his pacemaker and where MRI can safely be done. He will see neurology at back in January and will follow along about whether or not further medication will be trialed. To me patient's tremor seems worse off Sinemet. Next Appt Details Follow Up: 2 Weeks, Reason: Provider Name:Jaron Bahena, 12/30/2024 09:30:00 AM, [address] [place] [address], [phone], Progress Notes * Briseyda BRITT JR BDOB: [birth year] (79 yo M)Acc No.[id number]:11/25/2024 Progress Notes Patient: Nabeel EVITA Briseyda SHIELDS Zack Provider: Nabeel Bahena MD :1945 A ge:79 Y S ex:Male Date:11/25/2024 Address:[address] [place], [place] [id number] Subjective: * Chief Complaints: * 1 . Soa, dizziness, fatigue , speech slurred. * HPI: g en: Here with his to discuss some changes in medication management and some other issues over the past couple of weeks. We had sent him to [facility] neurology-Dr. Navarrete -to get a second opinion about his Parkinson's as he was having some difficulties with Sinemet adjustment from previous neurologist and was having some bad dreams. He saw them on November 17. I reviewed documentation from that visit. Basically Sinemet was discontinued and the differential diagnosis was broad and to include Lewy body dementia versus parkinsonism. MRI has been scheduled. This is to the system so it may take a while. Repeated blood work was done including thyroid and B12 levels which are normal on record review. Since then has noticed increasing shortness of air. She is concerned about his pacemaker. 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 She also wonders about anxiety and some nerves that are leftover from the loss of their son from brain cancer. He has fairly significant exertional dyspnea with any movement such as going up stairs or walking outside in the heat. He denies orthopnea, chest pain, palpitations or ankle swelling. * Medical History: P acemaker-bradycardia, Former smoker - Negative low-dose CT scan 09/24, diabetes wpg-zaqmsle-xjruaxuze diagnosed spring 2014 - dilated eye exam Yearly in august, diastolic CHF with bradycardia requiring pacemaker, Gouty arthritis, Sleep apnea, Hyperlipidemia, Hypertension, Colonoscopy 2012-normal results, GERD [Gastroesophageal reflux disease], Chronic Rhinorrhea, RHETT on sleep study 02/20, Covid -. * Medications: T aking GLUCOMETER WITH LANCETS [...] cap(s) orally once a day , Taking Farxiga 10 MG Tablet 1 tab(s) orally once a day , Taking Lisinopril [...] 1 cap(s) orally once a day , Discontinued Carbidopa-Levodopa 25-100 MG Tablet 1 tab(s) orally 3 times a day , Medication List reviewed and reconciled with the patient * Allergies: S ulfamethoxazole. Objective: * Vitals: N urse: dw, Pain: 0, Temp: 97.5, Pulse O2: 98, RR: 20, HR: 68, BP: 118/74, Ht: 69, Wt: 185, BMI:27.32. * Examination: G eneral Examination: P leasant, talkative, masked facies, tremor noted with characteristics Parkinson features, stiffness and rigidity noted. Lungs are clear, heart rate regular. Pacemaker site looks normal. No ankle edema. Assessment: * Assessment: 1. P acemaker - Z95.0 (Primary) 2 . E xertional dyspnea - R06.09 3 . P arkinson's disease without dyskinesia, unspecified whether manifestations fluctuate - G20.A1 Plan: * Treatment: 2. E xertional dyspnea Notes: Exertional dyspnea does not seem to be from fluid overload. They will discuss this with cardiology tomorrow and come back to me in a couple of weeks. Consider further workup at that point. 3. P arkinson's disease without dyskinesia, unspecified whether manifestations fluctuate Notes: I reviewed urology notes. I have asked them to discuss with cardiology tomorrow his pacemaker and where MRI can safely be done. He will see neurology at back in January and will follow along about whether or not further medication will be trialed. To me patient's tremor seems worse off Sinemet. * Procedure Codes: 9 3000 EKG WITH INTERP. * Follow Up: 2 Weeks * * Sign off status: Completed true * Provider: Nabeel Bahena MD Date: 0 11/25/2024 Generated for Thomas nelson/Isabella/Stevenitting on: 0 12/24/2024 06:43 AM EDT History and Physical Notes * HPI (History of Present Illness) Category Sub-Category Detail Notes Category Not es gen Here with his to discuss some changes in medication management and some other issues over the past couple of weeks. We had sent him to [facility] neurology-Dr. Navarrete -to get a second opinion about his Parkinson's as he was having some difficulties with Sinemet adjustment from previous neurologist and was having some bad dreams. He saw them on November 17. I reviewed documentation from that visit. Basically Sinemet was discontinued and the differential diagnosis was broad and to include Lewy body dementia versus parkinsonism. MRI has been scheduled. This is to the system so it may take a while. Repeated blood work was done including thyroid and B12 levels which are normal on record review. Since then has noticed increasing shortness of air. She is concerned about his pacemaker. 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 She also wonders about anxiety and some nerves that are leftover from the loss of their son from brain cancer. He has fairly significant exertional dyspnea with any movement such as going up stairs or walking outside in the heat. He denies orthopnea, chest pain, palpitations or ankle swelling. Examination Category Sub-Category Detail Notes Category Not es General Examination Pleasant, talkative, masked facies, tremor noted with characteristics Parkinson features, stiffness and rigidity noted. Lungs are clear, heart rate regular. Pacemaker site looks normal. No ankle edema.
--- OUTSIDE RECORDS SUMMARY | 2024-11-26 10:15 | XMS_ITS | Encounter Summary ---
[facility] Address [address] [place] [id number] Care Team Providers Care Hr Operations Advisor Name Role Phone Jaron Bahena MD Primary Care Provider [phone] Reason for Visit * Reason Comments Dizziness Fatigue Shortness of Breath Encounter Details Date Type Department Care Team (Late st Contact Info) Description 11/26/2024 10:15 AM EDT Office Visit [facility] CARDIOLOGY [address] [facility] [address] [place] [address] Mark Herrmann MD [address] [facility] [address] [place] [address] AV block, complete (Primary Dx); Primary hypertension; Mixed hyperlipidemia Social History Tobacco Use Types Packs/Day Years Used Date Smoking Tobacco: Former Cigarettes 1 45 0 08/30/1963 - 08/29/2008 Smokeless Tobacco: Never Alcohol Use Standard Drinks/Week Comments Yes 0 (1 standard drink = 0.6 oz pur e alcohol) occasional Sex and Gender Information Value Date Recorded Sex Assigned at Not on file Legal Sex Male 11:52 AM EDT Gender Identity Not on file Sexual Orientation Not on file documented as of this encounter Last Filed Vital Signs Vital Sign Reading Time Taken Comments Blood Pressure 118/70 11/26/2024 9:51 AM EDT Pulse 63 11/26/2024 9:51 AM EDT Temperature - - Respiratory Rate - - Oxygen Saturation 99% 11/26/2024 9:51 AM EDT Inhaled Oxygen Concentration - - Weight 83.5 kg (184 lb) 11/26/2024 9:51 AM EDT Height 188 cm (6' 2 ) 11/26/2024 9:51 AM EDT Body Mass Index 23.62 11/26/2024 9:51 AM EDT documented in this encounter Progress Notes * Mark Herrmann MD - 11/26/2024 10:[address] [facility] Cardiology Office Progress Note Briseyda Hector Jr. 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 Witt. Battery replacement, Dr. Grissom, October 2009. MDT pacemaker generator change 10/19/[address] Rhodes Labile hypertension. Echocardiogram 05/21/2012: Mild MR/TR; RVSP 31 mmHg, LVEF 40% to 45%, GXT Cardiolite stress test, 09/25/2012: No reversible ischemia or scar or fixed defects. LVEF 61%. 09/22 2D echo: LVEF 65-70%. Mild LVH. Mild MR. Tobacco abuse, resolved. Lipid status: TC 138 TG 42 HDL 81 LDL 49 Diabetes mellitus resolved post 75 lb weight loss Right carotid bruit with nonobstructive carotid artery plaque by ultrasound study. Remote operations. Left knee arthroscopic surgery. Carpal tunnel release on the right wrist. Pilonidal cyst excision. 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 Intermittent left lateral upper extremity pain - probable neuropathic pain with acceptable cervicalspine CT scan, February 2002. 9. PTSD loss son 2020 brain cancer [address] Sterling 2021 CC: Chief Complaint Patient presents with Dizziness Fatigue Shortness of Breath Allergies Allergies Allergen Reactions Sulfamethoxazole Current Medications Current Outpatient Medications: allopurinol (ZYLOPRIM) 100 MG tablet, Take 1 tablet by mouth Daily., Disp: , Rfl: amLODIPine (NORVASC) 5 MG tablet, Take 1 tablet by mouth Daily., Disp: , Rfl: aspirin 81 MG EC tablet, Take 1 tablet by mouth Daily., Disp: , Rfl: atorvastatin (LIPITOR) 40 MG tablet, Take 1 tablet by mouth Daily., Disp: , Rfl: cyanocobalamin (VITAMIN B-12) 2500 MCG tablet tablet, Take 500 mcg by mouth Daily., Disp: , Rfl: levocetirizine (XYZAL) 5 MG tablet, Take 1 tablet by mouth Every Evening., Disp: , Rfl: levothyroxine (SYNTHROID, LEVOTHROID) 50 MCG tablet, Take 1 tablet by mouth Daily., Disp: , Rfl: lisinopril (PRINIVIL,ZESTRIL) 5 MG tablet, Take 1 tablet by mouth Daily., Disp: , Rfl: metoprolol succinate XL (TOPROL-XL) 50 MG 24 hr tablet, Take 1 tablet (50 mg total) by mouth daily,Disp: 90 tablet, Rfl: 3 multivitamins-minerals (PRESERVISION AREDS 2) capsule capsule, Take 1 capsule by mouth Daily., Disp: , Rfl: pantoprazole (PROTONIX) 40 MG EC tablet, Take 1 tablet by mouth Daily., Disp: , Rfl: Vibegron 75 MG tablet, Take 1 tablet by mouth Daily. JUST GOT A SAMPLE FROM DOCTOR FOR TRIAL BASIS,Disp: , Rfl: vitamin D3 125 MCG (5000 UT) capsule capsule, Take 1 capsule by mouth Daily., Disp: , Rfl: History of Present Illness Briseyda Hector Jr. is a 79 y.o. year old male here for follow up. Parkinsonism is worsening. He is seeing and there is some concern for potential Lewy body issues. He had discontinued his carbidopa levodopa as he was having hallucinations OBJECTIVE: Vitals: 11/26/24 0951 BP: 118/70 BP Location: Right arm Patient Position: Sitting Cuff Size: Adult Pulse: 63 SpO2: 99% Weight: 83.5 kg (184 lb) Height: 188 cm (74 ) Body mass index is 23.62 kg/m??. Constitutional: Appearance: Healthy appearance. Not in distress. Neck: Vascular: No JVR. JVD normal. Pulmonary: Effort: Pulmonary effort is normal. Breath sounds: Normal breath sounds. No wheezing. No rhonchi. No rales. Chest: Chest wall: Not tender to palpatation. Cardiovascular: PMI at left midclavicular line. Normal rate. Regular rhythm. Normal S1. Normal S2. Murmurs: There is no murmur. No gallop. No click. No rub. Pulses: Intact distal pulses. Edema: Peripheral edema absent. Abdominal: General: Bowel sounds are normal. Palpations: Abdomen is soft. Tenderness: There is no abdominal tenderness. Musculoskeletal: Normal range of motion. General: No tenderness. Skin: General: Skin is warm and dry. Neurological: General: No focal deficit present. Mental Status: Alert and oriented to person, place and time. Comments: To and fro tremor of his hands bilaterally Diagnostic Data: Procedures Device check Acceptable thresholds impedences Dependent 10 NSVT < 10 sec 7.2 yr generator ASSESSMENT: Diagnosis Plan 1. AV block, complete 2. Primary hypertension 3. Mixed hyperlipidemia PLAN: Complete heart block acceptable(dependent) pacemaker function continued observation. MRI device compatibility will be discussed. Unfortunately given his complete heart block MRI would be complex Hypertension controlled ramipril amlodipine metoprolol Mixed dyslipidemia controlled on statin therapy Mark Herrmann MD, [facility] documented in this encounter Plan of Treatment Upcoming Encounters Date Type Department Care Team (Late st Contact Info) Description 03/11/2026 11:45 AM EDT Office Visit [facility] [address] [place] [address] [place] [address] Mark Herrmann MD [facility] [address] [place] [address] Scheduled Orders Name Type Priority Associated Diagnoses Orde r Schedule Cardiology Scan Cardiac Services Ord ered: 11/26/2024 Scheduled Procedures Name Priority Associated Diagnoses Date/Ti me PACEMAKER BATTERY CHANGE- DC AV block, Mobitz 2 documented as of this encounter Visit Diagnoses Diagnosis AV block, complete- Primary Primary hypertension Unspecified essential hypertension Mixed hyperlipidemia documented in this encounter Care Teams Hr Operations Advisor Relationship Specialty Start Date End Date Jaron Bahena MD [address] [facility] [address] [place] [address] PCP - General 05/05/15 documented as of this encounter
--- OUTSIDE RECORDS SUMMARY | 2024-12-09 05:15 | XMS_ITS ---
Author Organization [facility] RISHABH Armstrong ADIS Address [address] [facility] [address] [place] [address] Care Team Providers Care Auction Clerk Name Role Phone Jaron Bahena Primary Care Provider Allergies Allergen (clinical drug ingredient) Drug/Non Drug Allergy documented on EMR Reaction Allergy Type Onset Date Status Sulfamethoxazole Unknown Drug Allergy Active Reason For Referral Reason CT head with CTA of head, [facility] if possible, TR, will need BUN and creatinine the morning of test. Needs copy sent to Dr. Navarrete at neurology Diagnosis 1 Parkinson's disease without dyskinesia, unspecified whether manifestations fluctuate (G20.A1) Referral Organization [facility] Referring Provider First Name Jaron Referring Provider Last Name Josef Referring Provider Speciality Internal M edicine General Notes Liberty Cherry 01/2025 02:58:18 PM > waiting on pre-cert, Liberty Cherry 12/10/2024 03:00:43 PM > approved and faxed to [facility] to schedule Referral Priority Stat REASON [...] urinary incontinence (N39.41) Active confirmed Vital Signs BMI 27.46 kg/m2 12/09/2024 Weight 186 lbs 12/09/2024 Height 69 in 12/09/2024 Heart Rate 64 /min 12/09/2024 Blood pressure systolic 120 mm Hg 12/10/19 Blood pressure diastolic 70 mm Hg 025 Temperature 97.5 degrees Fahrenheit 12/10/19 25 Encounters Encounter Location Date Provider Diagnosis [facility] [address] [facility] [facility] [address] [place] [address] 12/09/2024 Jaron Bahena Urge urinary incontinence N39.41 [...] and see if this might be helpful. Pending Test Test Name Order Date CT Scan : Head, with/without contrast CTA : Head 12/09/2024 Referrals Referral Date Details 12/09/2024 12/09/2024, CT head with CTA of head, [facility] if possible, TR, will need BUN and creatinine the morning of test. Needs copy sent to Dr. Navarrete at neurology Next Appt Details Follow Up: prn, Reason: Provider Name:Jaron Bahena, 12/30/2024 09:30:00 AM, [address] [place] [address], [phone], Progress Notes * Briseyda BRITT JR BDOB: [birth year] (79 yo M)Acc No.[id number]:12/09/2024 Progress Notes Patient: Briseyda CARDONA JR Provider: Nabeel Bahena MD :1945 A ge:79 Y S ex:Male Date:12/09/2024 Address:[address] [place], [place] [id number] Subjective: * Chief Complaints: * 1 . [...] - Negative low-dose CT scan 09/24, diabetes [id number] diagnosed spring 2014 - dilated eye exam [...] maging: CT Scan : Head, with/without contrast ?Imaging: CTA : Head* Notes: Sinemet caused some side effects but helping tremor. [facility] note reviewed. They want imaging of head. Patient does not wish to have MRI scan done because of his concern about his pacemaker. Will do CT along with CTA, send this to [facility] and see if this might be helpful.? Referral To: ?Reason:CT head with CTA of head, [facility] if possible, TR, will need BUN and creatinine the morning of test. Needs copy sent to Dr. Navarrete at neurology * Follow Up: p rn * * Sign off status: Completed true * Provider: Nabeel Bahena MD Date: 0 12/09/2024 Generated for Printi omar/Isabella/eTransmitting on: 0 12/24/2024 06:42 AM EDT History and Physical Notes * [...] , CT head with CTA of head, [facility] if possible, TR, will need BUN and creatinine the morning of test. Needs copy sent to Dr. Navarrete at neurology
--- OUTSIDE RECORDS SUMMARY | 2024-12-24 06:42 | XMS_ITS | Encounter Summary ---
Author Organization [facility] Address [address] [address] Care Team Providers Care Wildlife Biology Technician Name Role Phone Jaron Bahena MD Primary Care Provider Encounter Details Date Type Department Care Team (Late st Contact Info) Description 09/22/2014 External CPT II PLASTER DIE MAKER - [facility] Social History Tobacco Use Types Packs/Day Years Used Date Smoking Tobacco: Never Assessed Sex and Gender Information Value Date Recorded Sex Assigned at Not on file Legal Sex Male 11:52 AM EDT Gender Identity Not on file Sexual Orientation Not on file documented as of this encounter Plan of Treatment Upcoming Encounters Date Type Department Care Team (Late st Contact Info) Description 03/11/2026 11:45 AM EDT Office Visit [facility] CARDIOLOGY [address] [facility] [place] [address] [place] [address] Mark Herrmann MD [address] [facility] [address] [address] [place] [address] Scheduled Procedures Name Priority Associated Diagnoses Date/Ti me PACEMAKER BATTERY CHANGE- DC AV block, Mobitz 2 documented as of this encounter Visit Diagnoses Not on filedocumented in this encounter Care Teams Wildlife Biology Technician Relationship Specialty Start Date End Date Jaron Bahena MD [address] [facility] [address] [place] [address] PCP - General 05/05/15 documented as of this encounter
--- OUTSIDE RECORDS SUMMARY | 2024-12-24 06:42 | XMS_ITS | Encounter Summary ---
Author Organization [facility] Address [address] [place] [address] Care Team Providers Care Software Designer Name Role Phone Jaorn Bahena MD Primary Care Provider Encounter Details Date Type Department Care Team (Late st Contact Info) Description 07/08/2015 External CPT II PUPPET DEVELOPER - [facility] Social History Tobacco Use [...] Description 03/11/2026 11:45 AM EDT Office Visit [facility] CARDIOLOGY [address] [place] [address] Mark Herrmann MD [address] [facility] [address] [place] [address] Scheduled Procedures Name Priority Associated Diagnoses Date/Ti me PACEMAKER BATTERY CHANGE- DC AV block, Mobitz 2 documented as of this encounter Visit Diagnoses Not on filedocumented in this encounter Care Teams Software Designer Relationship Specialty Start Date End Date Jaron Bahena MD [address] [place] [facility] [address] [place] [address] PCP - General 05/05/15 documented as of this encounter
--- OUTSIDE RECORDS SUMMARY | 2024-12-24 06:42 | XMS_ITS | Encounter Summary ---
Author Organization [facility] Address [address] [place] [address] Care Team Providers Care Print Shop Manager Name Role Phone Jaron Bahena MD Primary Care Provider [phone] Encounter Details Date Type Department Care Team (Late st Contact Info) Description 07/01/2015 External CPT II SALES DEVELOPMENT DIRECTOR - [facility] Social History Tobacco Use [...] Description 03/11/2026 11:45 AM EDT Office Visit [facility] [address] [facility] [place] [address] Mark Herrmann MD [address] [facility] [address] [place] [address] Scheduled Procedures Name Priority Associated Diagnoses Date/Ti me PACEMAKER BATTERY CHANGE- DC AV block, Mobitz 2 documented as of this encounter Visit Diagnoses Not on filedocumented in this encounter Care Teams Print Shop Manager Relationship Specialty Start Date End Date Jaron Bahena MD [address] [place] [facility] [address] [place] [address] PCP - General 05/05/15 documented as of this encounter
--- OUTSIDE RECORDS SUMMARY | 2024-12-24 06:42 | XMS_ITS | Encounter Summary ---
Author Organization [facility] Address [address] [place] [id number] Care Team Providers Care Window Cutter Name Role Phone Jaron Bahena MD Primary Care Provider [phone] Encounter Details Date Type Department Care Team (Late st Contact Info) Description 01/19/2015 External CPT II AMORTIZATION CLERK - [facility] Social History Tobacco Use [...] Description 03/11/2026 11:45 AM EDT Office Visit [facility] CARDIOLOGY [address] [place] [address] Mark Herrmann MD [address] [facility] [address] [place] [address] Scheduled Procedures Name Priority Associated Diagnoses Date/Ti me PACEMAKER BATTERY CHANGE- DC AV block, Mobitz 2 documented as of this encounter Visit Diagnoses Not on filedocumented in this encounter Care Teams Window Cutter Relationship Specialty Start Date End Date Jaron Bahena MD [address] [place] [facility] [address] [place] [address] PCP - General 05/05/15 documented as of this encounter
--- OUTSIDE RECORDS SUMMARY | 2024-12-24 06:43 | XMS_ITS | Encounter Summary ---
Author Organization [facility] Address [address] [place] [address] Care Team Providers Care Storehouse Clerk Name Role Phone Jaron Bahena MD Primary Care Provider Encounter Details Date Type Department Care Team (Late st Contact Info) Description 03/14/2016 External CPT II LEATHER COATER - [facility] Social History Tobacco Use [...] Description 03/11/2026 11:45 AM EDT Office Visit [facility] CARDIOLOGY [address] [facility] [place] [address] Mark Herrmann MD [address] [facility] [address] [place] [address] Scheduled Procedures Name Priority Associated Diagnoses Date/Ti me PACEMAKER BATTERY CHANGE- DC AV block, Mobitz 2 documented as of this encounter Visit Diagnoses Not on filedocumented in this encounter Care Teams Storehouse Clerk Relationship Specialty Start Date End Date Jaron Bahena MD [address] [place] [facility] [address] [place] [address] PCP - General 05/05/15 documented as of this encounter
--- OUTSIDE RECORDS SUMMARY | 2024-12-24 06:43 | XMS_ITS | Encounter Summary ---
Author Organization [facility] Address [address] [place] [address] Care Team Providers Care Elementary School Science Teacher Name Role Phone Jaron Bahena MD Primary Care Provider [phone] Reason for Visit * Reason Onset Date Comments Medication Reconciliation 11/25/2024 Encounter Details Date Type Department Care Team (Late st Contact Info) Description 11/25/2024 Telephone [facility] CARDIOLOGY [address] [facility] [address] [place] [address] Mark Herrmann MD [address] [facility] [address] [place] [address] Medication Reconciliation Social History Tobacco Use Types Packs/Day Years [...] on file documented as of this encounter Progress Notes * Gregory Chester CMA - 11/25/2024 2:20 PM EDTAddended by: GREGORY MENDOZA on: 11/25/2024 02:20 PM Modules accepted: Orders documented in this encounter Miscellaneous Notes * Telephone Encounter - Gregory Chester CMA - 11/25/2024 2:20 PM EDT Pt spouse returned call, medication reconciliation complete. * Telephone Encounter - Gregory Chester CMA - 11/25/2024 1:13 PM EDT LVM for patient to return call. documented in this encounter Plan of Treatment Upcoming Encounters Date Type Department Care Team (Late st Contact Info) Description 03/11/2026 11:45 AM EDT Office Visit [facility] CARDIOLOGY [address] [facility] [place] [address] Mark Herrmann MD [address] [facility] [address] [place] [address] Scheduled Procedures Name Priority Associated Diagnoses Date/Ti me PACEMAKER BATTERY CHANGE- DC AV block, Mobitz 2 documented as of this encounter Visit Diagnoses Not on filedocumented in this encounter Care Teams Elementary [employer] Science Teacher Relationship Specialty Start Date End Date Jaron Bahena MD 1210 [facility] [address] [place] [address] PCP - General 05/05/15 documented as of this encounter
--- OUTSIDE RECORDS SUMMARY | 2024-12-24 06:43 | XMS_ITS | Encounter Summary ---
Author Organization [facility] Address [address] [place] [id number] Care Team Providers Care Preparation Supervisor Name Role Phone Jaron Bahena MD Primary Care Provider [phone] Encounter Details Date Type Department Care Team (Late st Contact Info) Description 11/26/2018 External CPT II MANAGER OF MEDICAL - [facility] Social History Tobacco Use Types Packs/Day Years Used Date Smoking Tobacco: Former Cigarettes 0 08/30/1963 - 08/29/2008 Alcohol Use Standard Drinks/Week Comments Yes 0 [...] Description 03/11/2026 11:45 AM EDT Office Visit [facility] C[facility]IOLOG[facility] [address] [facility] [place] [address] Mark Herrmann MD [address] [facility] [address] [place] [address] Scheduled Procedures Name Priority Associated Diagnoses Date/Ti me PACEMAKER BATTERY CHANGE- DC AV block, Mobitz 2 documented as of this encounter Visit Diagnoses Not on filedocumented in this encounter Care Teams Preparation Supervisor Relationship Specialty Start Date End Date Jaron Bahena MD 12[address] [facility] [address] [place] [address] PCP - General 05/05/15 documented as of this encounter
--- OUTSIDE RECORDS SUMMARY | 2024-12-24 06:43 | XMS_ITS | Encounter Summary ---
Author Organization [facility] Address [address] [place] [address] Care Team Providers Care Insurance Sales Manager Name Role Phone Jaron Bahena MD Primary Care Provider [phone] Encounter Details Date Type Department Care Team (Late Contact Info) Description 11/12/2024 Telephone [facility] [address] [place] [address] Jeffery Navarrete MD [address] [place] [id number] [place] [address] Social History Tobacco Use Types Packs/Day Years Used Date Smoking Tobacco: Never Assessed Sex and Gender Information Value Date Recorded Sex Assigned at Not on file Legal Sex Male 7:37 PM EDT Gender Identity Not on file Sexual Orientation Not on file documented as of this encounter Miscellaneous Notes * Telephone Encounter - Ramin Varghese - 11/12/2024 10:11 AM EDT Called and spoke with patient's Jesica, confirmed 11-20 appt. Mailed map. documented in this encounter Plan of Treatment Upcoming Encounters Date Type Department Care Team (Late st Contact Info) Description 12/29/2024 9:40 AM EDT Office Visit [facility] [address] [place] [address] Jeffery Navarrete MD [address] [place] [address] [phone] [place] [address] 01/05/2025 2:30 PM EDT Consult [facility] [address] [place] [address] Keisha Blum M, FINAL CLEANER [address] [place] [address] documented as of this encounter Visit Diagnoses Not on filedocumented in this encounter Care Teams Insurance Sales Manager Relationship Specialty Start Date End Date Jaron Bahena MD [address] [place] [address] PCP - General 10/15/20 documented as of this encounter
--- OUTSIDE RECORDS SUMMARY | 2024-12-24 06:43 | XMS_ITS | Encounter Summary ---
Author Organization [facility] Address [address] [place] [id number] Care Team Providers Care Food Processing Scientist Name Role Phone Jaron Bahena MD Primary Care Provider [phone] Encounter Details Date Type Department Care Team (Late st Contact Info) Description 12/16/2019 External CPT II WET WHEELER - [facility] Social History Tobacco Use Types Packs/Day Years Used Date Smoking Tobacco: Former Cigarettes 0 08/30/1963 - 08/29/2008 Smokeless Tobacco: Never [...] Description 03/11/2026 11:45 AM EDT [address] [facility] CARDIOLOGY [address] [facility] [place] [address] Mark Herrmann MD [facility] [address] [place] [address] Scheduled Procedures Name Priority Associated Diagnoses Date/Ti me PACEMAKER BATTERY CHANGE- DC AV block, Mobitz 2 documented as of this encounter Visit Diagnoses Not on filedocumented in this encounter Care Teams Food Processing Scientist Relationship Specialty Start Date End Date Jaron Bahena MD [address] [place] [facility] [address] [place] [address] PCP - General 05/05/15 documented as of this encounter
--- OUTSIDE RECORDS SUMMARY | 2024-12-24 06:43 | XMS_ITS | Encounter Summary ---
Author Organization [facility] Address [address] [place] [address] Care Team Providers Care Tire Tester Name Role Phone Jaron Bahena MD Primary Care Provider Encounter Details Date Type Department Care Team (Late st Contact Info) Description 07/06/2016 External CPT II DRAFTER CIVIL ENGINEERING - [facility] Social History Tobacco Use [...] 03/11/2026 11:45 AM EDT Office [facility] CARDIOLOGY [address] [facility] [place] [address] [place] [address] Mark Herrmann MD [address] [facility] [address] [place] [address] Scheduled Procedures Name Priority Associated Diagnoses Date/Ti me PACEMAKER BATTERY CHANGE- DC AV block, Mobitz 2 documented as of this encounter Visit Diagnoses Not on filedocumented in this encounter Care Teams Tire Tester Relationship Specialty Start Date End Date Jaron Bahena MD [address] [place] [facility] [address] [place] [address] PCP - General 05/05/15 documented as of this encounter
--- OUTSIDE RECORDS SUMMARY | 2024-12-24 06:43 | XMS_ITS | Encounter Summary ---
Author Organization [facility] Address [address] [place] [id number] Care Team Providers Care Human Services Case Manager Name Role Phone Jaron Bahena MD Primary Care Provider [phone] Encounter Details Date Type Department Care Team (Late st Contact Info) Description 07/21/2014 [address] C[address] II [address]IVE MAN - [facility] Social History Tobacco Use [...] Description 03/11/2026 11:45 AM EDT Office Visit [facility] CARDIOLOGY [address] [facility] [place] [address] Mark Herrmann MD [address] [facility] [address] [place] [address] Scheduled Procedures Name Priority Associated Diagnoses Date/Ti me PACEMAKER BATTERY CHANGE- DC AV block, Mobitz 2 documented as of this encounter Visit Diagnoses Not on filedocumented in this encounter Care Teams Human Services Case Manager Relationship Specialty Start Date End Date Jaron Bahena MD [address] [place] [facility] [address] [place] [address] PCP - General 05/05/15 documented as of this encounter
--- OUTSIDE RECORDS SUMMARY | 2024-12-24 06:43 | XMS_ITS | Encounter Summary ---
Author Organization [facility] Address [address] [place] [phone] Care Team Providers Care Math Interventionist Name Role Phone Jaron Bahena MD Primary Care Provider [phone] Encounter Details Date Type Department Care Team (Late st Contact Info) Description 09/05/2018 External CPT II TIRE REPAIR MECHANIC - [facility] Social History Tobacco Use [...] Description 03/11/2026 11:45 AM EDT Office Visit [facility]IOLOG[facility] [address] [facility] [place] [address] Mark Herrmann MD 1720 [facility] [address] [place] [address] Scheduled Procedures Name Priority Associated Diagnoses Date/Ti me PACEMAKER BATTERY CHANGE- DC AV block, Mobitz 2 documented as of this encounter Visit Diagnoses Not on filedocumented in this encounter Care Teams Math Interventionist Relationship Specialty Start Date End Date Jaron Bahena MD 1210 [facility] [address] [place] [address] PCP - General 05/05/15 documented as of this encounter
--- OUTSIDE RECORDS SUMMARY | 2024-12-24 06:43 | XMS_ITS | Encounter Summary ---
Author Organization [facility] Address [address] [place] [address] Care Team Providers Care Warp Trucker Name Role Phone Jaron Bahena MD Primary Care Provider [phone] Encounter Details Date Type Department Care Team (Late Contact Info) Description 11/25/2024 Telephone [facility] CARDIOLOGY [address] [facility] [address] [place] [id number] Mark Herrmann MD [address] [facility] [address] [place] [address] Social History Tobacco Use Types Packs/Day Years [...] encounter Miscellaneous Notes * Telephone Encounter - Anne Chang RegSched Rep - 11/25/2024 9:29 AM EDT Left message for pt to rtn call to [facility] appt with Dr Herrmann documented in this encounter Plan of Treatment Upcoming Encounters Date Type Department Care Team (Late st Contact Info) Description 03/11/2026 11:45 AM EDT Office Visit [facility] CARDIOLOGY [address] [place] [address] [address] [place] [address] Mark Herrmann MD [address] [facility] [address] [place] [address] Scheduled Procedures Name Priority Associated Diagnoses Date/Ti me PACEMAKER BATTERY CHANGE- DC AV block, Mobitz 2 documented as of this encounter Visit Diagnoses Not on filedocumented in this encounter Care Teams Warp Trucker Relationship Specialty Start Date End Date Jaron Bahena MD 1210 [facility] [address] [place] [address] PCP - General 05/05/15 documented as of this encounter
--- OUTSIDE RECORDS SUMMARY | 2024-12-24 06:43 | XMS_ITS | Encounter Summary ---
Author Organization [facility] Address [address] [place] [address] Care Team Providers Care Dielectric Press Operator Name Role Phone Jaron Bahena MD Primary Care Provider [phone] Reason for Referral * Consultation (Routine) - Closed Specialty Diagnoses / Procedures Referred By Contac t Referred To Contact Neurology Diagnoses Parkinson's disease without dyskinesia, with fluctuations (CMS/HCC) Jaron Bahena MD 1210 [facility] [address] [address] Phone: tel: fax: Referral ID Status Reason Start Date Expiration Date V isits Requested Visits Authorized [id number] Closed Specialty Services Required 01/22/2024 07/23/2025 1 1 Encounter Details Date Type Department Care Team (Latest Contact Info) Description 01/22/2024 [facility] [place] [facility] [address] [place] [address] Jaron Bahena MD 1210 [facility] [address] [address] Parkinson's disease without dyskinesia, with fluctuations (CMS/HCC) (Primary Dx) Social History Tobacco Use Types Packs/Day Years [...] Description 12/29/2024 9:40 AM EDT Office Visit [facility] [address] [place] [address] Jeffery Navarrete MD [address] [place] [address] 01/05/2025 2:30 PM EDT Consult [facility] Urology [address] [place] [address] NoKeisha silva M, CHEMICAL RADIATION TECHNICIAN [address] [place] [address] Scheduled Referrals Name Type Priority Associated Diagnoses Orde r Schedule Ambulatory referral to Neurology Outpatient Referral Routine Parkinson's disease without dyskinesia, with fluctuations (CMS/HCC) Expected: 01/22/2024 (Approximate), Expires: 07/24/2025 documented as of this encounter Visit Diagnoses Diagnosis Parkinson's disease without dyskinesia, with fluctuations (CMS/HCC)- Primary documented in this encounter Care Teams Dielectric Press Operator Relationship Specialty Start Date End Date Jaron Bahena MD [address] [place] [address] PCP - General 10/15/20 documented as of this encounter
--- OUTSIDE RECORDS SUMMARY | 2024-12-24 06:43 | XMS_ITS | Clinical Summary ---
Author Organization [facility], [place], [place], [place]) Address [address] [place] [address] Care Team Providers Care Scrap Picker Name Role Phone Jaron Bahena MD Primary Care Provider [phone] Allergies Active Allergy Reactions Criticality Noted Date Comments Sulfamethoxazole 11/30/2015 Other Reaction(s): Unknown Medications tamsulosin (FLOMAX) 0.4 mg cap 24 hr capsule Take by mouth. 04/08/20 24 Active ramipriL (ALTACE) 10 MG capsule Take 1 capsule (10 mg total) by mouth. Active pantoprazole (PROTONIX) 40 MG tablet Take 1 tablet (40 mg total) by mouth daily. 03/17/20 24 Active metoprolol succinate (TOPROL-XL) 50 MG 24 hr tablet Take by mouth. 04/14/20 24 Active lisinopriL (ZESTRIL) 5 MG tablet Take 1 tablet (5 mg total) by mouth daily. 03/17/20 24 Active levothyroxine (SYNTHROID) 50 MCG tablet Take 1 tablet (50 mcg total) by mouth daily. 04/29/20 24 Active levocetirizine (XYZAL) 5 MG tablet Take 1 tablet (5 mg total) by mouth every evening. Active atorvastatin (LIPITOR) 40 MG tablet Take 1 tablet (40 mg total) by mouth daily. Active amLODIPine (NORVASC) 5 MG tablet Take 1 tablet (5 mg total) by mouth daily. 04/14/20 24 Active allopurinoL (ZYLOPRIM) 100 MG tablet Take 1 tablet (100 mg total) by mouth daily. 04/14/20 24 Active dapagliflozin propanediol (Farxiga) 10 mg tablet 1 tab(s) orally once a day for 90 days 12/11/19 24 Active cyanocobalamin (Vitamin B-12) 2,500 mcg SL tablet 1 tab(s) sublingually once a day for 30 day(s) Active amoxicillin (AMOXIL) 500 MG capsule Take 1 capsule (500 mg total) by mouth 3 (three) times daily. 07/16/19 25 Active carbidopa-levodopa IR (SINEMET) 25-100 mg per tabletIndications: Parkinson's disease without dyskinesia, unspecified whether manifestations fluctuate (HCC) Take 1 tablet by mouth 2 (two) times daily. 180 tablet 1 08/19/19 25 Active Family History Relation Name Status Comments Father Mother Social History Tobacco Use Types Packs/Day Years Used Date Smoking Tobacco: Never Smokeless Tobacco: Never Tobacco Cessation:Counseling Given: Not Answered Alcohol Use Standard Drinks/Week Comments Never 0 (1 standard drink = 0.6 oz pur e alcohol) Sex and Gender Information Value Date Recorded Sex Assigned at Not on file Legal Sex Male 5:36 PM CDT Gender Identity Not on file Sexual Orientation Not on file Last Filed Vital Signs Vital Sign Reading Time Taken Comments Blood Pressure 149/76 08/18/2024 10:13 AM EDT Pulse 78 08/18/2024 10:13 AM EDT Temperature - - Respiratory Rate - - Oxygen Saturation 96% 08/18/2024 10:13 AM EDT Inhaled Oxygen Concentration - - Weight 86.4 kg (190 lb 6.4 oz) 08/18/2024 10:13 AM EDT Height 172.7 cm (5' 8 ) 08/18/2024 10:13 AM EDT Body Mass Index 28.95 08/18/2024 10:13 AM EDT Plan of Treatment Upcoming Encounters Date Type Department Care Team (Late st Contact Info) Description 02/10/2025 10:00 AM EDT Office Visit [facility] Neurology - [employer] [facility] [employer] [address] [place] [address] Khoa Caceres MD [facility] [employer] [address] [place] [address] Health Maintenance Due Date Last Done Comments Depression Screening (12+) 1959 Hepatitis C Screening 1965 Pneumococcal 50+ years (2 of 2 - PPSV23) 09/11/2018 09/11/2017 Respiratory Syncytial Virus (RSV) Adult or (1 - 1-dose 75+ series) 2022 COVID-19 VACCINE ( - season) 2024 03/31/2021, 08/05/2020, 07/08/2020 Falls Risk Screening 06/04/2024 Medicare Initial AWV [id number] 06/04/2024 Influenza Vaccine (#1) 2025 Tobacco Cessation Counseling and Screening (12+) 08/18/2025 08/18/2024 DTAP/TDAP/TD VACCINES (2 - T d or Tdap) 02/09/2028 02/08/2018 Shingles Vaccine (Zoster) Completed 04/10/2023, 08/2022 Insurance [facility] AD[facility] Care Teams Scrap Picker Relationship Specialty Start Date End Date Jaron Bahena MD [address] [place] [address] PCP - General Adolescent Medicine 04/16/24
--- OUTSIDE RECORDS SUMMARY | 2024-12-24 06:43 | XMS_ITS | Encounter Summary ---
Author Organization [facility] Address [address] [place] [phone] Care Team Providers Care Marketing Teacher Name Role Phone Jaron Bahena MD Primary Care Provider [phone] Encounter Details Date Type Department Care Team (Latest Contact Info) Description 11/26/2024 Travel Social History Tobacco Use Types Packs/Day Years [...] Description 03/11/2026 11:45 AM EDT Office Visit [facility] CARDIOLOGY [address] [facility] [place] [address] [place] [address] [place] [address] [address] [place] [address] Scheduled Procedures Name Priority Associated Diagnoses Date/Ti me PACEMAKER BATTERY CHANGE- DC AV block, Mobitz 2 documented as of this encounter Visit Diagnoses Not on filedocumented in this encounter Care Teams Marketing Teacher Relationship Specialty Start Date End Date Jaron Bahena MD [address] [place] [facility] [address] [place] [address] PCP - General 05/05/15 documented as of this encounter
--- OUTSIDE RECORDS SUMMARY | 2024-12-24 06:43 | XMS_ITS | Clinical Summary ---
Author Organization [facility] Address [address] [place] [id number] Care Team Providers Care Cellar Supervisor Name Role Phone Jaron Bahena MD Primary Care Provider [phone] Allergies Active Allergy Reactions Criticality Noted Date Comments Sulfamethoxazole 11/30/2015 Medications aspirin 81 MG EC tablet Take 1 tablet by mouth Daily. Active allopurinol (ZYLOPRIM) 100 MG tablet Take 1 tablet by mouth Daily. 6 Active pantoprazole (PROTONIX) 40 MG EC tablet Take 1 tablet by mouth Daily. 6 Active metoprolol succinate XL (TOPROL-XL) 50 MG 24 hr tablet Take 1 tablet (50 mg total) by mouth daily 90 tablet 3 6 Active atorvastatin (LIPITOR) 40 MG tablet Take 1 tablet by mouth Daily. Active levothyroxine (SYNTHROID, LEVOTHROID) 50 MCG tablet Take 1 tablet by mouth Daily. 9 Active cyanocobalamin (VITAMIN B-12) 2500 MCG tablet tablet Take 500 mcg by mouth Daily. Active levocetirizine (XYZAL) 5 MG tablet Take 1 tablet by mouth Every Evening. Active lisinopril (PRINIVIL,ZEST RIL) 5 MG tablet Take 1 tablet by mouth Daily. 5 Active amLODIPine (NORVASC) 5 MG tablet Take 1 tablet by mouth Daily. Active multivitamins- minerals (PRESERVISION AREDS 2) capsule capsule Take 1 capsule by mouth Daily. Active vitamin D3 125 MCG (5000 UT) capsule capsule Take 1 capsule by mouth Daily. Active Vibegron 75 MG tablet Take 1 tablet by mouth Daily. JUST GOT A SAMPLE FROM DOCTOR FOR TRIAL BASIS Active amLODIPine (NORVASC) 5 MG tablet Take 2 tablets by mouth Daily. 90 tablet 3 9 11/27/19 25 Discontinued Cholecalcifero l (Vitamin D-3) 25 MCG (1000 UT) capsule Take 1,000 Units by mouth Daily. 11/27/19 25 Discontinued ramipril (ALTACE) 10 MG capsule Take 1 capsule by mouth Daily. 2 tabs daily 11/27/19 25 Discontinued carbidopa-levo dopa (SINEMET) 25-100 MG per tablet 3 (Three) Times a Day. 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 LVEF 61%. Diabetes mellitus Carotid bruit Overview (08/22/2016): Right-with nonobstructive carotid artery plaque by ultrasound study. Encounters Date Type Department Care Team Description 11/26/2024 10:15 AM EDT Office Visit [facility] [address] [facility] [address] [place] [address] Mark Herrmann MD AV block, complete (Primary Dx); Primary hypertension; Mixed hyperlipidemia 11/26/2024 Travel 11/25/2024 Telephone [facility] [address] [facility] [address] [place] [address] Mark Herrmann MD Medication Reconciliation 11/25/2024 Telephone [facility] [address] [facility] [place] [id number] Mark Herrmann MD 11/25/2024 Telephone [facility] [address] [address] Mark Herrmann MD Advice Only; Appointment from Last 3 Months Family History Medical History Relation Name Comments Cancer Father Heart attack Father Stroke Father Diabetes Mother Relation Name Status Comments Father Mother Social [...] Pulse 63 11/26/2024 9:51 AM EDT Temperature 36.6 C (97.9 F) 10/19/2020 12:10 PM EDT Respiratory Rate 12 10/19/2020 3:21 PM EDT Oxygen Saturation 99% 11/26/2024 9:51 AM EDT Inhaled Oxygen Concentration - - Weight 83.5 kg (184 lb) 11/26/2024 9:51 AM EDT Height 188 cm (6' 2 ) 11/26/2024 9:51 AM EDT Body Mass Index 23.62 11/26/2024 9:51 AM EDT Plan of Treatment Upcoming Encounters Date Type Department Care Team (Late st Contact Info) Description 03/11/2026 11:45 AM EDT Office Visit [facility] [address] [place] [address] [address] Mark Herrmann MD [address] [place] [address] Scheduled Procedures Name Priority Associated Diagnoses Date/Ti me PACEMAKER BATTERY CHANGE- DC AV block, Mobitz 2 Health Maintenance Due Date Last Done Comments URINE MICROALBUMIN-CREATININ E RATIO (uACR) 1957 COLOGUARD 1992 COLON CANCER SCREENING 5 YEA R SIGMOIDOSCOPY 1992 CT COLONOGRAPHY 1992 FECAL OCCULT BLOOD TEST 1992 FIT Testing (1 year) 1992 DIABETIC FOOT EXAM 07/08/2016 07/08/2015, 1 07/12/2014, 01/19/2015, Additional history exists HEPATITIS C SCREENING 12/13/2016 DIABETIC EYE EXAM 02/08/2022 02/08/2021, , 09/05/2018, Additional history exists RSV Vaccine - Adults (1 - 1- dose 75+ series) 2022 HEMOGLOBIN A1C 09/12/2022 03/14/2022, 03/04, 08/09/2021, Additional history exists ANNUAL WELLNESS VISIT 03/14/2023 03/14/2022 , 02/08/2021, 12/16/2019, Additional history exists LIPID PANEL 03/14/2023 03/14/2022, 03/0 01/2022, 02/08/2021, Additional history exists COLONOSCOPY 05/21/2023 05/21/2013 COLORECTAL CANCER SCREENING 05/21/2023 COVID-19 Vaccine (4 - 2023-2 5 season) 2024 03/31/2021, 08/05/2020, 07/08/2020 INFLUENZA VACCINE 03/04/2025 04/08/2024, , 03/14/2022, Additional history exists TDAP/TD VACCINES (3 - Td or Tdap) 02/09/2028 018, 04/26/2011 Pneumococcal Vaccine 50+ Completed 023, 09/11/2017, 05/07/2013 ZOSTER VACCINE Completed 04/10/2023, 01/04/2023 Medical Devices Implanted Type Area Stain Wiper Device Identifier Shelf Expiration Date Model / Serial / Lot Env Pm Aigisrx Antibac Resorb 2.9x3.3in Lg - [id number] - [id number] Implanted:Qty: 1 on 10/19/2020 by Gavino Rhodes DO at [facility] Implant [employer] 07/02/2021 [id number] / [id number] / [id number] Pacemaker-2009 Implanted:11/20 (Quantity not on file) Pacemaker [employer] Gen Pm Chantal Xt Deja Weaver - [id number] - [id number] Implanted:Qty: 1 on 10/19/2020 by Gavino Rhodes, DO at [facility] Pacemaker [employer] 03/01/2022 [id number] / [id number] / Procedures Procedure Name Priority Date/Time Associated Diagnosis Comments SCANNED EKG 11/26/2024 from Last 3 Months Results * ECG Scan (11/26/2024) us Mark Herrmann MD ECG ORDERABLES Final Result from Last 3 Months Insurance MEDICARE ADVANTAGE HMO Advance Directives Documents on File Type Date Recorded Patient Apparatus Engineering Technologist Expl anation LIVING WILL - SCAN 10/19/2020 11:49 AM Care Teams Cellar Supervisor Relationship Specialty Start Date End Date Jaron Bahena MD [address] [place] [address] PCP - General 05/05/15
--- OUTSIDE RECORDS SUMMARY | 2024-12-24 06:43 | XMS_ITS | Encounter Summary ---
Author Organization [facility] Address [address] [place] [phone] Care Team Providers Care Certified Composites Technician Name Role Phone Jaron Bahena MD Primary Care Provider [phone] Encounter Details Date Type Department Care Team (Late st Contact Info) Description 06/12/2017 External CPT II SENIOR LOGISTICS MANAGER - [facility] Social History Tobacco Use [...] Description 03/11/2026 11:45 AM EDT Office Visit [facility] [address] [place] [address] Mark Herrmann MD [address] [facility] [address] [place] [address] Scheduled Procedures Name Priority Associated Diagnoses Date/Ti me PACEMAKER BATTERY CHANGE- DC AV block, Mobitz 2 documented as of this encounter Visit Diagnoses Not on filedocumented in this encounter Care Teams Certified Composites Technician Relationship Specialty Start Date End Date Jaron Bahena MD [address] [facility] [address] [place] [address] PCP - General 05/05/15 documented as of this encounter
--- OUTSIDE RECORDS SUMMARY | 2024-12-24 06:43 | XMS_ITS | Encounter Summary ---
Author Organization [facility] Address [address] [place] [address] Care Team Providers Care Geophysical Drafter Name Role Phone Jaron Bahena MD Primary Care Provider Encounter Details Date Type Department Care Team (Late st Contact Info) Description 11/16/2015 External CPT II MANAGER ARMY - [facility] Social History Tobacco Use [...] 03/11/2026 11:45 AM EDT Office Visit [facility] [address] [facility] [place] [address] Mark Herrmann MD [address] [facility] [address] [place] [address] Scheduled Procedures Name Priority Associated Diagnoses Date/Ti me PACEMAKER BATTERY CHANGE- DC AV block, Mobitz 2 documented as of this encounter Visit Diagnoses Not on filedocumented in this encounter Care Teams Geophysical Drafter Relationship Specialty Start Date End Date Jaron Bahena MD [address] [facility] [address] [place] [address] PCP - General 05/05/15 documented as of this encounter
--- OUTSIDE RECORDS SUMMARY | 2024-12-24 06:43 | XMS_ITS | Encounter Summary ---
Author Organization [facility] Address [address] [place] [address] Care Team Providers Care Looping Machine Operator Name Role Phone Jaron Bahena MD Primary Care Provider [phone] Reason for Visit * Reason Onset Date Comments Advice Only 11/25/2024 Appointment 11/25/2024 Encounter Details Date Type Department Care Team (Late st Contact Info) Description 11/25/2024 Telephone [facility] [address] [place] [phone] Mark Herrmann MD [address] [facility] [address] [place] [address] Advice Only; Appointment Social History Tobacco Use Types Packs/Day Years [...] encounter Miscellaneous Notes * Telephone Encounter - Laxmi Gil RN - 11/25/2024 9:25 AM EDT Spoke with spouse, pt is having dizziness, increased fatigue , appt with PCP today . Has not been seen with [facility] since , pt scheduled appt with PM interrogation . No further concerns at this time . documented in this encounter Plan of Treatment Upcoming Encounters Date Type Department Care Team (Late st Contact Info) Description 03/11/2026 11:45 AM EDT Office Visit [facility] [address] [place] [address] Mark Herrmann MD [address] [facility] [address] [place] [address] Scheduled Procedures Name Priority Associated Diagnoses Date/Ti me PACEMAKER BATTERY CHANGE- DC AV block, Mobitz 2 documented as of this encounter Visit Diagnoses Not on filedocumented in this encounter Care Teams Looping Machine Operator Relationship Specialty Start Date End Date Jaron Bahena MD [address] [facility] [address] [place] [address] PCP - General 05/05/15 documented as of this encounter
--- OUTSIDE RECORDS SUMMARY | 2024-12-24 06:43 | XMS_ITS | Encounter Summary ---
Author Organization [facility] Address [address] [place] [phone] Care Team Providers Care Special Certificate Dictator Name Role Phone Jaron Bahena MD Primary Care Provider Encounter Details Date Type Department Care Team (Late st Contact Info) Description 06/02/2014 External CPT II FISHING INSTRUCTOR - [facility] Social History Tobacco Use [...] Office Visit [facility] [address] [facility] [place] [address] Mark Herrmann MD [address] [facility] [address] [place] [address] Scheduled Procedures Name Priority Associated Diagnoses Date/Ti me PACEMAKER BATTERY CHANGE- DC AV block, Mobitz 2 documented as of this encounter Visit Diagnoses Not on filedocumented in this encounter Care Teams Special Certificate Dictator Relationship Specialty Start Date End Date Jaron Bahena MD [address] [facility] [address] [place] [address] PCP - General 05/05/15 documented as of this encounter
--- OUTSIDE RECORDS SUMMARY | 2024-12-24 06:43 | XMS_ITS | Data Portability ---
Author Organization [facility] Address [address] [place] [address] Assessment Encounter Date Assessment Date Assessment LastModified by Organization Details LastModified Time 08/15/2022 08/15/2022 -Sinemet 25/100 mg TID -reviewed the diagnosis and treatment of PD -encouraged regular exercise -f/u as schedule [place] [id number] Not available 08/15/2022 09:59:16 08/16/2023 08/16/2023 -Azilect 0.5 mg qday -Sinemet 25/100 mg TID -continue regular exercise regimen -continue vitamin regimen, daily aspirin -reviewed diagnosis and treatment plan -f/u as scheduled [place] [address] Not available 08/16/2023 09:31:21 Plan of Treatment Reminders Order Date Submit Date Provider Last Modified By Organization Details Last Modified Time Details Appointments None recorded. Lab None recorded. Referral None recorded. Procedures None recorded. Surgeries None recorded. Imaging None recorded. Medication Orders Azilect 0.5 mg tablet 2023 024 [facility], [address] [place], [address], 4 11:00:10 carbidopa 25 mg-levodopa 100 mg tablet 2023 024 [facility], [address] [place], [address], 4 09:28:45 carbidopa 25 mg-levodopa 100 mg tablet 2022 023 [facility], [address] [facility], [place], [address], 3 10:00:54 Sinemet 25 mg-100 mg tablet 2021 ZEYAD Ortiz [facility], [address] [facility], [place], [address], 2 09:14:28 selegiline 5 mg tablet 2021 [place] [address] [employer] [facility], [address] [facility], [place], [address], 4 09:30:59 amantadine HCl 100 mg tablet 2021 [place] [address] [employer] [facility], [address] [facility], [place], [address], 4 09:31:22 Patient TargetsNo targets recorded. Patient InstructionsNo instructions recorded. Reason for Referral None Reported. Problems Name Problem SNOMED Code Status Onset Date Resolution Date Notes Provider Name and Address Organization Details Recorded Time Parkinson 's disease 75032614 Active Not Available [facility] 11:03:27 Problem Notes None recorded. Medical Equipment None Reported. Medications Name Sig Start Date Stop Date Status Note LastModified by Organization Details LastModified Time amantadin e HCl 100 mg tablet Take 1 tablet twice a day by oral route. 08/15 completed stopped august 2022 Not Available Not Available Not Available amoxicill in 500 mg capsule 08/14 completed Not Available Not Available Not Available atorvasta tin 40 mg tablet TAKE 1 TABLET BY MOUTH EVERY DAY active Not Available Not Available No t Available nystatin 100,000 unit/mL oral suspensio n active Not Available Not Available Not Available atorvasta tin 20 mg tablet 08/15 completed Not Available Not Available Not Available ofloxacin 0.3 % eye drops 08/15 completed Not Available Not Available Not Available metoprolo l succinate ER 50 mg tablet,ex tended release 24 hr TAKE 1/2 TABLET BY MOUTH ONCE DAILY active Not Available Not Available No t Available amlodipin e 5 mg tablet TAKE 1 TABLET BY MOUTH ONCE DAILY active Not Available Not Available No t Available allopurin ol 100 mg tablet TAKE 1 TABLET BY MOUTH EVERY DAY active Not Available Not Available No t Available aspirin 81 mg tablet,de layed release Take 1 tablet every day by oral route. active Not Available Not Available No t Available amantadin e HCl 100 mg capsule 08/14 completed Not Available Not Available Not Available ketorolac 0.5 % eye drops 08/15 completed Not Available Not Available Not Available prednisol one acetate 1 % eye drops,[facility] 08/15 completed Not Available Not Available Not Available levothyro xine 50 mcg tablet TAKE 1 TABLET BY MOUTH EVERY MORNING ON AN EMPTY STOMACH active Not Available Not Available No t Available pantopraz ole 40 mg tablet,de layed release Take 1 tablet every day by oral route for 90 days. active Not Available Not Available No t Available selegilin e 5 mg tablet Take 1 tablet every day by oral route. 08/15 completed stopped august 2022 Not Available Not Available Not Available losartan 25 mg tablet active Not Available Not Available Not Available lisinopri l 5 mg tablet active Not Available Not Available Not Available carbidopa 25 mg-levodo pa 100 mg tablet Take 1 tablet 3 times a day by oral route for 90 days. active Not Available Not Available No t Available fluticaso ne propionat e 50 mcg/actua tion nasal spray,[facility] 08/15 completed Not Available Not Available Not Available ramipril 10 mg capsule TAKE 2 CAPSULES BY MOUTH ONCE DAILY active Not Available Not Available No t Available amoxicill in 875 mg-potass ium clavulana te 125 mg tablet 08/14 completed Not Available Not Available Not Available Vitamin B12 500 mcg tablet Take 1 tablet every day by oral route. active Not Available Not Available No t Available ciproflox acin 0.3 %-dexamet hasone 0.1 % ear drops,[facility] 08/15 completed Not Available Not Available Not Available rasagilin e 0.5 mg tablet Take by oral route for 90 days. active PA until 06/03/24 Not Available Not Available Not Available levocetir izine 5 mg tablet 08/15 completed Not Available Not Available Not Available GaviLyte- G 236 gram-22.7 4 gram-6.74 gram-5.86 gram oral solution active Not Available Not Available Not Available Vitamin D3 125 mcg (5,000 unit) tablet Take 1 tablet every day by oral route. active Not Available Not Available No t Available Kerendia 10 mg tablet active Not Available Not Available Not Available Lagevrio 200 mg capsule (EUA) TAKE 4 CAPSULES BY MOUTH EVERY 12 HOURS FOR 5 DAYS. MAY BE TAKEN WITH OR WITHOUT FOOD. 08/15 completed Not Available Not Available Not Available Vitals Date Recorded Body height Body mass index (BMI) Body weight Body temperature Oxygen saturation Oxygen saturation in Arterial blood by Pulse oximetry Heart rate Systolic And Diastolic Provider Name and Address Organization Details Last Updated DateTime 3 187.96 cm 24.8 kg/m2 00283.0 5 g 97.3 [degF] 99 % 99 % 78 /min 142/80 mm[Hg] Moriah Chadwick [facility] [place] 3 09:39:22 Date Recorded Body weight Body temperature Oxygen saturation Oxygen saturation in Arterial blood by Pulse oximetry Heart rate Systolic And Diastolic Provider Name and Address Organization Details Last Updated DateTime 4 67158.9 8 g 97.6 [degF] 99 % 99 % 84 /min 134/70 mm[Hg] Shu Montrell [facility] [place] 4 09:20:38 Date Recorded Body height Body mass index (BMI) Body weight Body temperature Oxygen saturation Oxygen saturation in Arterial blood by Pulse oximetry Systolic And Diastolic Provider Name and Address Organization Details Last Updated DateTime 2 187.96 cm 24.9 kg/m2 13257.9 2 g 97.8 [degF] 98 % 98 % 140/60 mm[Hg] Nickolas Baez [facility] [place] 2 08:48:16 Social History None recorded. Functional Status None recorded. Mental Status None recorded. Family History Nothing Reported. Medical History No medical history recorded. Past Encounters Encounter ID Performer Location Encounter Start Date Encounter Closed Date Diagnosis/Indication Diagnosis SNOMED-CT Code Diagnosis ICD10 Code Diagnosis Note [id number] Michelle Sterling MD [facility] [address] [place] [phone] 05/08/2022 08:34:50 05/08/2022 09:15:21 Parkinson's disease 51232100 G20 relatively stable, unclear as to whether not amantadine has been helpful, I have asked him to go ahead and increase that to twice a day to see if he sees a difference he does not we can certainly discontinu e. In the meantime I have recommende d continuing healthy habits, exercising regularly, we will add in rasagiline at nighttime and see how he does. Medication s have been refilled. Follow-up 6 months. [id number] Efrain Brown [facility] [address] [place] [phone] 08/15/2022 09:23:30 08/15/2022 10:01:16 Parkinson's disease 04766809 G20 [id number] Romeo Brown M.D [facility] [address] [place] [id number] 08/16/2023 09:02:44 08/16/2023 09:34:45 Parkinson's disease 57814978 G20.A1 Health Concerns Section Related Observation LastModified by Organization Detai ls LastModified Time None Recorded Concern Status LastModified by Organization Details LastModified Time None Recorded Advance Directives Directive None Recorded Payers Insurance Date Sequence Insurance Name Policy Number Policy Glover Covered Member ID Glover Member ID Guarantor Name 12/22/2023 1 [place] Briseyda Dixon Tawny Farrell [id number] Briseyda Hdzclement Farrell 12/22/2023 2 [place] [id number] Briseyda Tawny Farrell [id number] Briseyda Hdzclement Farrell 12/22/2023 1 [employer] (MEDICARE REPLACEMENT/A DVANTAGE - PPO) Briseyda Zack Hector Jr [id number] Briseyda Hector Jr Notes Date Note Type Note Provider Name and Address Organization Details Recorded Time 05/08/2022 text/html patient follows up today, overall has done well, still notices a little bit of tremor particularly when he is distracted or walking. But otherwise has been doing well. Slightly decreased facial expression, but walking and balance have been excellent. Patient currently on Sinemet 25/100 3 times a day as well as amantadine 100 mg q.day. Patient does not feel that amantadine is making much of a difference however Michelle Sterling MD [address] [place] [address], [phone], [facility] [place] 05/08/2022 09:13:29 08/15/2022 text/html Mr. Briseyda Hector Jr. is a 77 y/o M who presents for new visit today. He has had a resting tremor for about three years. He has been on Carbidopa/Levodopa for some time with some improvement. Was later started on Amantadine and Selegiline. He developed a rash and pruritis and stopped taking the Selegiline and Amantadine. He is taking Carbidopa/Levodopa 25/100 mg TID. He has excellent movement and gait. He does have some hypomimia and bradykinesia. Romeo Brown M.D [address] [place] [address], [address], [place], [address], [facility] [place] 08/15/2022 10:00:20 08/16/2023 text/html Mr. Briseyda Hector Jr. is a 78 y/o M who presents for new visit today. He has had a resting tremor for about three years. He has been on Carbidopa/Levodopa for some time with some improvement. Was later started on Amantadine and Selegiline. He developed a rash and pruritis and stopped taking the Selegiline and Amantadine. He is taking Carbidopa/Levodopa 25/100 mg TID. He continues to have excellent movement and gait. He does have some hypomimia and bradykinesia.He has been having difficulty with his vision and is seeing Ophthalmology for this. Romeo Brown M.D [address] [place] [address], [address], [place], [address], [facility] [place] 08/16/2023 09:32:40
--- OUTSIDE RECORDS SUMMARY | 2024-12-24 06:43 | XMS_ITS | Encounter Summary ---
Author Organization [facility] Address [address] [place] [id number] Care Team Providers Care Plywood Scarfer Tender Name Role Phone Jaron Bahena MD Primary Care Provider [phone] Encounter Details Date Type Department Care Team (Late st Contact Info) Description 03/06/2017 External CPT II MINE ANALYST - [facility] Social History Tobacco Use [...] 11:45 AM EDT Office Visit [facility] [address] [facility] [place] [address] Mark Herrmann MD [address] [facility] [address] [place] [address] Scheduled Procedures Name Priority Associated Diagnoses Date/Ti me PACEMAKER BATTERY CHANGE- DC AV block, Mobitz 2 documented as of this encounter Visit Diagnoses Not on filedocumented in this encounter Care Teams Plywood Scarfer Tender Relationship Specialty Start Date End Date Jaron Bahena MD [address] [facility] [address] [place] [address] PCP - General 05/05/15 documented as of this encounter
--- OUTSIDE RECORDS SUMMARY | 2024-12-24 06:43 | XMS_ITS | Encounter Summary ---
Author Organization [facility] Address [address] [place] [id number] Care Team Providers Care Limnologist Name Role Phone Jaron Bahena MD Primary Care Provider [phone] Encounter Details Date Type Department Care Team (Late st Contact Info) Description 10/10/2016 External CPT II SPECIMEN TECHNICIAN - [facility] Social History Tobacco Use [...] Description 03/11/2026 11:45 AM EDT Office Visit [facility] [address] [facility] [place] [address] Mark Herrmann MD [address] [facility] [address] [place] [address] Scheduled Procedures Name Priority Associated Diagnoses Date/Ti me PACEMAKER BATTERY CHANGE- DC AV block, Mobitz 2 documented as of this encounter Visit Diagnoses Not on filedocumented in this encounter Care Teams Limnologist Relationship Specialty Start Date End Date Jaron Bahena MD [address] [facility] [address] [place] [address] PCP - General 05/05/15 documented as of this encounter
--- OUTSIDE RECORDS SUMMARY | 2024-12-24 06:43 | XMS_ITS | Encounter Summary ---
Author Organization [facility] Address [address] [place] [id number] Care Team Providers Care Childcare Center Director Name Role Phone Jaron Bahena MD Primary Care Provider Encounter Details Date Type Department Care Team (Late st Contact Info) Description 06/19/2014 External CPT II INVESTMENTS MANAGER - [facility] Social History Tobacco [...] Description 03/11/2026 11:45 AM EDT Office Visit [facility] [address] [facility] [place] [address] [place] [address] Mark Herrmann MD [address] [facility] [address] [place] [address] Scheduled Procedures Name Priority Associated Diagnoses Date/Ti me PACEMAKER BATTERY CHANGE- DC AV block, Mobitz 2 documented as of this encounter Visit Diagnoses Not on filedocumented in this encounter Care Teams Childcare Center Director Relationship Specialty Start Date End Date Jaron Bahena MD [address] [facility] [address] [place] [address] PCP - General 05/05/15 documented as of this encounter
--- OUTSIDE RECORDS SUMMARY | 2024-12-24 06:43 | XMS_ITS | Encounter Summary ---
Author Organization [facility] Address [address] [place] [address] Care Team Providers Care Collision Repairer Name Role Phone Jaron Bahena MD Primary Care Provider [phone] Encounter Details Date Type Department Care Team (Late Contact Info) Description 11/12/2024 Telephone [facility] [address], [address]st [place] [address] Jeffery Navarrete MD [address] [facility] [address] [place] [address] Social History Tobacco Use Types Packs/Day Years Used Date Smoking Tobacco: Never Assessed Sex and Gender Information Value Date Recorded Sex Assigned at Not on file Legal Sex Male 7:37 PM EDT Gender Identity Not on file Sexual Orientation Not on file documented as of this encounter Plan of Treatment Upcoming Encounters Date Type Department Care Team (Late Contact Info) Description 12/29/2024 9:40 AM EDT Office Visit [facility] [address], [address]st [place] [address] Jeffery Navarrete MD [address] [place] [address] 01/05/2025 2:30 PM EDT Consult [facility]rology [address], [address] [place] [phone] Keisha Blum M, POST MANAGER [address] [place] [address] documented as of this encounter Visit Diagnoses Not on filedocumented in this encounter Care Teams Collision Repairer Relationship Specialty Start Date End Date Jaron Bahena MD [address] [place] [address] PCP - General 10/15/20 documented as of this encounter
--- OUTSIDE RECORDS SUMMARY | 2024-12-24 06:43 | XMS_ITS | Referral Summary ---
Author Organization [facility] ([place], [place], [place], [place]) Address [address] [place] [address] Care Team Providers Care Lime Sludge Kiln Operator Name Role Phone Jaron Bahena MD Primary Care Provider [phone] Allergies Active Allergy Reactions Criticality Noted Date [...] daily. 180 tablet 1 08/19/19 25 Active Social History Tobacco Use Types Packs/Day Years [...] Description 02/10/2025 10:00 AM EDT Office Visit [facility] Neurology - [facility] [address] [facility] [address] [address] Khoa Caceres MD [facility] [address] [place] [address] Insurance BCBS BRIA MCR ADV Care Teams Lime Sludge Kiln Operator Relationship Specialty Start Date End Date Jaron Bahena MD [address] [place] [address] [place] [address] PCP - General Adolescent Medicine 04/16/24
--- OUTSIDE RECORDS SUMMARY | 2024-12-24 06:44 | XMS_ITS | Encounter Summary ---
Author Organization [facility] Address [address] [place] [id number] Care Team Providers Care Car Salter Name Role Phone Jaron Bahena MD Primary Care Provider [phone] Encounter Details Date Type Department Care Team (Late Contact Info) Description 11/17/2024 Telephone [facility]rology [address], [address]nd [place] [address] Meenu Hernandez [place] [id number] Social History Tobacco Use Types Packs/Day Years Used Date Smoking Tobacco: Former Cigarettes Smokeless Tobacco: Never Alcohol Use Standard Drinks/Week Comments Yes 0 (1 standard drink = 0.6 oz pur e alcohol) Sex and Gender Information Value Date Recorded Sex Assigned at Not on file Legal Sex Male 7:37 PM EDT Gender Identity Not on file Sexual Orientation Not on file documented as of this encounter Miscellaneous Notes * Telephone Encounter - Meenu Hernandez - 11/17/2024 11:59 AM EDT Patient is on urology referral triage, called patient to schedule a consult appointment, no answer,left a detailed message to return my call. Meenu Hernandez RN documented in this encounter Plan of Treatment Upcoming Encounters Date Type Department Care Team (Late st Contact Info) Description 12/29/2024 9:40 AM EDT [facility] [address], [address]st [place] [address] Jeffery Navarrete MD [address] [place] [address] 01/05/2025 2:30 PM EDT Consult [facility] [address], [address] [place] [address] NoKeisha silva M, POEM WRITER [address] [place] [address] documented as of this encounter Visit Diagnoses Not on filedocumented in this encounter Additional Health Concerns Assessment Noted Time A fall risk assessment has been complete d for the patient 11/17/2024 8:26 AM EDT A Body Mass Index follow-up plan has been documented for the patient 11/19/2024 1:52 PM EDT documented as of this encounter Care Teams Car Salter Relationship Specialty Start Date End Date Jaron Bahena MD [address] [place] [address] PCP - General 10/15/20 documented as of this encounter
--- OUTSIDE RECORDS SUMMARY | 2024-12-24 06:44 | XMS_ITS | Clinical Summary ---
Author Organization [facility] Address [address] [place] [address] Care Team Providers Care Manager Of Pmo Name Role Phone Jaron Bahena MD Primary Care Provider [phone] Allergies Active Allergy Reactions Criticality Noted Date Comments Sulfa Drugs Unknown - Patient states they do not know rxn details Low 11/17/2024 Sulfamethoxazole Unknown - Patient states they do not know rxn details Low 11/30/2015 Other Reaction(s): Unknown Medications aspirin 81 MG EC tablet Take 1 tablet by mouth 1 time each day. Active carbidopa-levod opa (Sinemet) 25-100 MG tablet Take 2 tablets by mouth daily. 08/18/2024 Active atorvastatin (Lipitor) 40 MG tablet Take 1 tablet by mouth 1 time each day. Active cyanocobalamin (Vitamin B-12) 2500 MCG tablet Take 500 mcg by mouth 1 time each day. Active lisinopril 5 MG tablet Take 1 tablet by mouth daily. 03/17/2024 Active levothyroxine (Synthroid, Levoxyl) 50 MCG tablet Take 1 tablet by mouth daily. 04/29/2024 Active pantoprazole (Protonix) 40 MG EC tablet Take 1 tablet by mouth 1 time each day. 03/17/2024 Active metoprolol succinate XL (Toprol-XL) 50 MG 24 hr tablet Take 25 mg by mouth daily. 04/14/2024 Active tamsulosin (Flomax) 0.4 MG 24 hr capsule Take 1 capsule by mouth daily. 04/08/2024 Active allopurinol (Zyloprim) 100 MG tablet Take 1 tablet by mouth daily. Active multivitamin-mi nerals-folic acid-coenzyme q10 (Preservision AREDS 2) capsule Take 1 capsule by mouth daily. Active amLODIPine (Norvasc) 5 MG tablet Take 1 tablet by mouth daily. Active Active Problems No known active problems Encounters Date Type Department Care Team Description 11/17/2024 8:20 AM EDT Consult [facility] [address], 1st [place] [address] Jeffery Navarrete MD Dementia associated with other underlying disease, with psychotic disturbance, unspecified dementia severity (Primary Dx); Parkinson's disease 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 (CMS/HCC); Urinary frequency 11/17/2024 Telephone [facility] Urology [address] [place] [address], 2nd [place] [phone] Meenu Hernandez 11/17/2024 Travel 11/12/2024 Telephone [place] [address] [facility], 1st [place] [address] Jeffery Navarrete MD 11/12/[address], [address] [place] [phone] Jeffery Navarrete MD from Last 3 Months Social History Tobacco Use Types Packs/Day Years [...] Mass Index 24.16 11/17/2024 8:22 AM EDT Plan of Treatment Upcoming Encounters Date Type Department Care Team (Late st Contact Info) Description 12/29/2024 9:40 AM EDT Office Visit [facility] [address], [address] [place] [address] Jeffery Navarrete MD [address] [place] [address] 01/05/2025 2:30 PM EDT Consult [facility] [address], [address] [place] [address] Keisha Blum APRN [address] [place] [address] Health Maintenance Due Date Last Done Comments [facility]-Depression Screening 1945 [facility]-Hepatitis C Screening 1945 [facility]-Medicare Annual Wellness (AWV) 1945 [facility]-Infant/Child/Adol SDOH Screenings 1945 [facility]- SDOH Screenings 1965 [facility]-Adult SDOH Screenings 1965 [facility]-Pneumococcal Vaccine: 50+ Years (2 of 2 - PPSV23) 09/11/2018 09/11/2017 BIA-BRQJS-17 Vaccine ( season) 2024 03/31/2021, 08/05/2020, 07/08/2020 [facility]-Influenza Vaccine (#1) 02/02/202504/08, 04/10/2023, 02/08/2021, Additional history exists [facility]-DTaP,Tdap,and Td Vaccines (2 - Td or Tdap) 02/09/2028 02/08/2018 [facility]-RSV Vaccine: 60+ Years or Completed 04/10/2023 [facility]-Zoster Vaccines Completed 04/10/2023, 3 HPV Vaccines Aged Out No longer eligi ble based on patient's age to complete this topic [facility]-HIB Vaccines Aged Out No longer e ligible based on patient's age to complete this topic [facility]-Hepatitis A Vaccines Aged Out No longer eligible based on patient's age to complete this topic [facility]-IPV Vaccines Aged Out No longer e ligible based on patient's age to complete this topic [facility]-Rotavirus Vaccines Aged Out No lo nger eligible based on patient's age to complete this topic Procedures Procedure Name Priority Date/Time Associated Diagnosis Comments VITAMIN B12, SERUM Routine 11/17/2024 9: 52 AM EDT Dementia associated with other underlying disease, with psychotic disturbance, unspecified dementia severity Parkinson's disease 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 (CMS/HCC) FOLATE, SERUM Routine 11/17/2024 9:52 AM EDT Dementia associated with other underlying disease, with psychotic disturbance, unspecified dementia severity Parkinson's disease 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 (CMS/HCC) RPR WITH REFLEX TO TITER (THOSE WITH KNOWN SYPHILIS) Routine 11/17/2024 9:52 AM EDT Dementia associated with other underlying disease, with psychotic disturbance, unspecified dementia severity Parkinson's disease 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 (CMS/HCC) TSH Routine 11/17/2024 9:52 AM EDT Dementia associated with other underlying disease, with psychotic disturbance, unspecified dementia severity Parkinson's disease 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 (CMS/HCC) from Last 3 Months Results * RPR With Reflex to Titer (Those With Known Syphilis) (11/17/2024 9:52 AM EDT) Rapid Plasma Reagin Nonreactive Non Reactive 11/18/2024 1:20 AM EDT [facility] Blood Venous blood specimen / Unknown Venipuncture / Unknown 11/17/2024 9:52 AM EDT 11/17/2024 9:53 AM EDT us Jeffery Navarrete MD LAB BLOOD ORDERABLES Final Resul t [facility] [address] [place] [address] * TSH (11/17/2024 9:52 AM EDT) Thyroid Stimulating Hormone, Plasma 2.12 0.40 - 4.20 uIU/mL 11/17/2024 11:25 AM EDT [facility] Blood Venous blood specimen / Unknown Venipuncture / Unknown 11/17/2024 9:52 AM EDT 11/17/2024 9:53 AM EDT Jeffery Navarrete MD LAB BLOOD ORDERABLES Final Resul t [facility] [address] [place] [address] * Folate (11/17/2024 9:52 AM EDT) Folate, Serum >20.0 >4.6 ng/mL 11/17/2024 12:22 PM EDT [facility] Blood Venous blood specimen / Unknown Venipuncture / Unknown 11/17/2024 9:52 AM EDT 11/17/2024 9:53 AM EDT us Jeffery Navarrete MD LAB BLOOD ORDERABLES Final Resul t Performing Organization Address City/[facility]/ZIP Co de Phone Number [facility] [address] [place] [address] * Vitamin B12, Serum (11/17/2024 9:52 AM EDT) Vitamin B12, Serum 865 210 - 1,033 pg/mL 11/17/2024 12:22 PM EDT [facility] Blood Venous blood specimen / Unknown Venipuncture / Unknown 11/17/2024 9:52 AM EDT 11/17/2024 9:53 AM EDT us Jeffery Navarrete MD LAB BLOOD ORDERABLES Final Resul t Performing Organization Address City/[facility]/ZIP Co de Phone Number [facility] [address] [place] [address] from Last [address] [place] [place] [id number] MEDICARE Care Teams Manager Of Pmo Relationship Specialty Start Date End Date Jaron Bahena MD [address] [place] [address] PCP - General 10/15/20
--- OUTSIDE RECORDS SUMMARY | 2024-12-24 06:44 | XMS_ITS | Encounter Summary ---
Author Organization [facility] Address [address] [place] [address] Care Team Providers Care Green Chain Puller Name Role Phone Jaron Bahena MD Primary Care Provider [phone] Encounter Details Date Type Department Care Team (Latest Contact Info) Description 11/17/2024 Travel Social History Tobacco Use Types Packs/Day [...] Description 12/29/2024 9:40 AM EDT Office Visit [facility] [address], [address] [place] [address] Jeffery Navarrete MD [address] [facility] [address] [place] [address] 01/05/2025 2:30 PM EDT Consult [facility] [address], [address] [place] [address] Keisha Blum APRN [address] [facility] [address] [place] [address] documented as of this encounter Visit Diagnoses Not on filedocumented in this encounter Additional Health Concerns Assessment Noted Time A fall risk assessment has been complete d for the patient 11/17/2024 8:26 AM EDT A Body Mass Index follow-up plan has been documented for the patient 11/19/2024 1:52 PM EDT documented as of this encounter Care Teams Green Chain Puller Relationship Specialty Start Date End Date Jaron Bahena MD [address] [place] [address] PCP - General 10/15/20 documented as of this encounter
--- OUTSIDE RECORDS SUMMARY | 2024-12-24 06:44 | XMS_ITS | Patient Health Record ---
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 Name Role Phone Jaron Bahena Primary Care Provider Migration, Provider Unavailable Unavailable Allergies Allergen (clinical drug ingredient) Drug/Non Drug Allergy documented on EMR Reaction Allergy Type Onset Date Status Sulfamethoxazole Unknown Drug Allergy Active Results Component Value Reference Range Notes Microalbumin (In-House) Reviewed date:08/05/2024 01:45:26 PM Interpretation:Normal Performing Lab: Notes/Report: Normal ALB 30mg CRE 100mg A:C <30mg LIPID PANEL, STANDARD (7600) Reviewed date:08/07/2024 08:49:10 AM Interpretation: Performing Lab:[facility], [facility] [address], [place] [facility] Marco Bonds Notes/Report: NON-FASTING; NON-FASTING; NON-FASTING; NON-FASTING FASTING:YES FASTING: YES CHOLESTEROL, TOTAL 132 <200 mg/dL HDL CHOLESTEROL 51 > OR = 40 mg/dL TRIGLYCERIDES 122 <150 mg/dL LDL-CHOLESTEROL 61 Reference range: <100 Desirable range <100 mg/dL for primary prevention; <70 mg/dL for patients with CHD or diabetic patients with > or = 2 CHD risk factors. LDL-C is now calculated using the Ayaka calculation, which is a validated novel method providing better accuracy than the Friedewald equation in the estimation of LDL-C. Milad ALVES et al. MEGAN. 2013;310(19): 1398-9627 (http://education.Tillster/faq/BTF763) CHOL/HDLC RATIO 2.6 <5.0 (calc) NON HDL CHOLESTEROL 81 <130 mg/dL (calc) For patients with diabetes plus 1 major ASCVD risk factor, treating to a non-HDL-C goal of <100 mg/dL (LDL-C of <70 mg/dL) is considered a therapeutic option. COMPREHENSIVE METABOLIC PANE Luisa ([id number]) Reviewed date:08/07/2024 08:49:11 AM Interpretation: Performing Lab:[facility], [place] Marco Bonds Notes/Report: NON-FASTING; NON-FASTING; NON-FASTING; NON-FASTING FASTING:YES FASTING: YES GLUCOSE 100 65-99 mg/dL Fasting reference interval For someone without known diabetes, a glucose value between 100 and 125 mg/dL is consistent with prediabetes and should be confirmed with a follow-up test. UREA NITROGEN (BUN) 21 7-25 mg/dL CREATININE 1.24 0.70-1.28 mg/dL EGFR 60 > OR = 60 mL/min/1.73m2 BUN/CREATININE RATIO SEE NOTE: 6-22 (calc) Not Reported: BUN and Creatinine are within reference range. SODIUM 141 135-146 mmol/L POTASSIUM 5.0 3.5-5.3 mmol/L CHLORIDE 107 98-110 mmol/L CARBON DIOXIDE 27 20-32 mmol/L CALCIUM 9.6 8.6-10.3 mg/dL PROTEIN, TOTAL 6.7 6.1-8.1 g/dL ALBUMIN 4.5 3.6-5.1 g/dL GLOBULIN 2.2 1.9-3.7 g/dL (calc) ALBUMIN/GLOBULIN RATIO 2.0 1.0-2.5 (calc) BILIRUBIN, TOTAL 0.9 0.2-1.2 mg/dL ALKALINE PHOSPHATASE 70 35-144 U/L AST 16 10-35 U/L ALT 11 9-46 U/L CBC (INCLUDES DIFF/PLT) (639 9) Reviewed date:08/07/2024 08:49:11 AM Interpretation: Performing Lab:[facility] [facility] [id number], [place]jgf[facility]X[address] Marco Bonds Notes/Report: NON-FASTING; NON-FASTING; NON-FASTING; NON-FASTING FASTING:YES FASTING: YES WHITE BLOOD CELL COUNT 6.7 3.8-10.8 Thousand/ uL RED BLOOD CELL COUNT 4.36 4.20-5.80 Million/uL HEMOGLOBIN 14.3 13.2-17.1 g/dL HEMATOCRIT 43.6 38.5-50.0 % MCV 100.0 80.0-100.0 fL MCH 32.8 27.0-33.0 pg MCHC 32.8 32.0-36.0 g/dL For adults, a slight decrease in the calculated MCHC value (in the range of 30 to 32 g/dL) is most likely not clinically significant; however, it should be interpreted with caution in correlation with other red cell parameters and the patient's clinical condition. RDW 12.5 11.0-15.0 % PLATELET COUNT 252 140-400 Thousand/uL MPV 10.2 7.5-12.5 fL ABSOLUTE NEUTROPHILS 5099 9425-3738 cells/uL ABSOLUTE LYMPHOCYTES 4809 314-4275 cells/uL ABSOLUTE MONOCYTES 469 200-950 cells/uL ABSOLUTE EOSINOPHILS 87 15-500 cells/uL ABSOLUTE BASOPHILS 27 0-200 cells/uL NEUTROPHILS 76.1 LYMPHOCYTES 15.2 MONOCYTES 7.0 EOSINOPHILS 1.3 BASOPHILS 0.4 HEMOGLOBIN A1c (496) Reviewed date:08/07/2024 08:49:11 AM Interpretation: Performing Lab:[facility], [facility] [address] [facility], [facility] InstituteYmgqZK[address] Marco Bonds Notes/Report: NON-FASTING; NON-FASTING; NON-FASTING; NON-FASTING FASTING:YES FASTING: YES HEMOGLOBIN A1c 5.6 <5.7 % of total Hgb For the purpose of screening for the presence of diabetes: <5.7% Consistent with the absence of diabetes 5.7-6.4% Consistent with increased risk for diabetes (prediabetes) > or =6.5% Consistent with diabetes This assay result is consistent with a decreased risk of diabetes. Currently, no consensus exists regarding use of hemoglobin A1c for diagnosis of diabetes in children. According to [place] Diabetes Association (ADA) guidelines, hemoglobin A1c <7.0% represents optimal control in non- diabetic patients. Different metrics may apply to specific patient populations. Standards of Medical Care in Diabetes(ADA). Medications Medication SIG (Take, Route, Frequency, Duration) Notes Start Date End Date Status Lisinopril 5 MG Take 1 tablet by mouth once daily; Duration: 90 Active amLODIPine Besylate 5 MG 1 tab(s) orally once a day; Duration: 90 days Active ACCU CHECK GLUCOMETER USE DIRECTED E11.9 *Ple ase review for potential replacement for e-prescription and drug interaction check* 05/07/2017 Active Allopurinol 100 MG 1 tab(s) orally once a day; Duration: 90 days Active ACCU CHECK SOFT CLICK LANCETS DIRECTED ONCE DAILY; Duration: 30 DAYS E11.9 *Please review for potential replacement for e-prescription and drug interaction check* 05/07/2017 Active Levothyroxine Sodium 50 MCG 1 tab(s) orally once a day; Duration: 90 days Active ACCU CHECK TEST STRIPS DIRECTED ONCE DAILY; Duration: 30 DAYS E11.9 *Please review for potential replacement for e-prescription and drug interaction check* 05/07/2017 Active Atorvastatin Calcium 40 MG 1 tab(s) orally once a day; Duration: 90 days Active Vitamin D3 25 MCG (1000 UT) as directed orally once a day; Duration: 30 day(s) Active Tamsulosin HCl 0.4 MG 1 cap(s) orally once a day; Duration: 90 days 04/08/2024 Active B-12 2500 MCG 1 tab(s) sublingually once a day; Duration: 30 day(s) Active Carbidopa-Levodopa 25-100 MG 1 tab(s) orally 3 times a day; Duration: 90 days 11/15/2021 Active Pantoprazole Sodium 40 MG Take 1 tablet by mouth once daily; Duration: 90 Active Aspirin 81 MG 1 cap(s) orally once a day; Duration: 90 days Active Farxiga 10 MG 1 tab(s) orally once a day; Duration: 90 days 12/11/2023 Active Gemtesa 75 MG 1 tablet Orally Once a day Active Metoprolol Succinate ER 50 MG TAKE 1/2 TABLET ORALLY ONCE A DAY 90 DAYS; Duration: 90 Active GLUCOMETER WITH LANCETS AND TEST STRIPS DX: E11.9 DIRECTED TWICE A DAY *Please review for potential replacement for e-prescription and drug interaction check* 06/05/2014 Active Gemtesa 75 MG 1 tablet Orally Once a day; Duration: 90 days 12/09/2024 Active Immunizations Vaccine Route Administration Date Status Comme nts SHINGRIX Unknown 01/04/2023 Administered SHINGRIX IM Intramuscular 04/10/2023 Administered Prevnar PCV-20 (Pneumococcal conjugate 20) IM Intramuscular 09/12/2022 Administered Prevnar PCV-13 (Pneumococcal conjugate 13) IM Intramuscular 09/11/2017 Administered Pneumovax-23 (pneumococccal vaccine polyvalent)2 years or older Unknown 05/07/2013 Administered Influenza Intradermal Unknown 06/19/2011 Administered Influenza (Fluzone)--Medicare only Unknown 04/14/2013 Administered Influenza (Fluzone)--Medicare only IM Intramuscular 04/10/2014 Administered Influenza (Fluzone)--Medicare only IM Intramuscular 05/11/2015 Administered Influenza (Fluzone)--Medicare only IM Intramuscular 03/14/2016 Administered Influenza (Fluzone)--Medicare only IM Intramuscular 03/06/2017 Administered Fluzone High Dose IM Intramuscular 03/05/2018 Administered Fluzone High Dose IM Intramuscular 03/11/2019 Administered Fluzone High Dose IM Intramuscular 04/06/2020 Administered Fluzone High Dose IM Intramuscular 02/08/2021 Administered Fluzone High Dose IM Intramuscular 03/14/2022 Administered Fluzone High Dose IM Intramuscular 04/10/2023 Administered Fluzone High Dose IM Intramuscular 04/08/2024 Administered Fluvirin--Influenza vaccine 3+ year Unknown 03/08/2009 Administered Covid Moderna Unknown 07/08/2020 Administered Covid Moderna Unknown 08/05/2020 Administered Boostrix IM Intramuscular 02/08/2018 Administered Arexvy IM Intramuscular 04/10/2023 Administered Adacel (Tdap) Unknown 04/26/2011 Administered Social History Tobacco Use: Social History Observation Description Date Details (start date - stop date) Former Smoker NA - NA Smoking: Question Answer Notes Are you a: former smoker How long has it been since you last smoked? > 10 years Problems Problem Type SNOMED Code ICD Code Onset Dates Problem Status W/U Status Risk Notes Problem Type 2 diabetes mellitus with other specified complication (E11.69) Active confirmed Problem Mixed hyperlipidemia (756314377) Mixed hyperlipidemia (E78.2) Active confirmed Problem Hypothyroidism (10678985) Hypothyroidism (acquired) (E03.9) Active confirmed Problem General examination of patient (694468592) Routine medical exam (Z00.00) Active confirmed Problem Essential hypertension (47062953) Hypertension, essential (I10) Active confirmed Problem Psoriasis (3955234) Psoriasis (L40.9) Active confirmed Problem Seasonal allergy (030388154) Seasonal allergies (J30.2) Active confirmed Problem Cardiac pacemaker in situ (598688702) Pacemaker (Z95.0) Active confirmed Problem Hyperlipidemia (09251409) Hyperlipidemia, unspecified (E78.5) Active confirmed Problem Osteoarthritis of knee (991567853) Primary osteoarthritis of right knee (M17.11) Active confirmed Problem Obstructive sleep apnea syndrome (37330822) RHETT (obstructive sleep apnea) (G47.33) Active confirmed Problem Urge urinary incontinence (86675745) Urge urinary incontinence (N39.41) Active confirmed Problem Hearing loss (39019909) Hearing loss, unspecified hearing loss type, unspecified laterality (H91.90) Active confirmed Problem Thyromegaly (1199732) Thyromegaly (E01.0) Active confirmed Problem Seasonal allergic rhinitis (361120551) Seasonal allergic rhinitis, unspecified trigger (J30.2) Active confirmed Problem Chronic kidney disease stage 3A (193449975) Stage 3a chronic kidney disease (N18.31) Active confirmed Problem Chronic kidney disease stage 3A (disorder) (275495635) Stage 3a chronic kidney disease (CKD) (N18.31) Active confirmed Problem Parkinson's disease (disorder) (63721656) Parkinson's disease without dyskinesia, unspecified whether manifestations fluctuate (G20.A1) Active confirmed Vital Signs Heart Rate 64 /min 12/09/2024 Temperature 97.5 degrees Fahrenheit 12/09/2024 Oximetry 98 11/25/2024 Blood pressure diastolic 70 mm Hg 12/09/2024 Height 69 in 12/09/2024 Blood pressure systolic 120 mm Hg 12/09/2024 Weight 186 lbs 12/09/2024 BMI 27.46 kg/m2 12/09/2024 Encounters Encounter Location Date Provider Diagnosis [facility] [address] [place], [place] [address] 09/06/2024 Provider Migration [facility] [address] [place] [id number] 01/22/2024 Jaron Bahena Orthostatic dizzines s R42 ; Parkinson's disease without dyskinesia, with fluctuating manifestations G20.A2 ; Type 2 diabetes mellitus with other specified complication E11.69 and Stage 3a chronic kidney disease (CKD) N18.31 [facility] [address] [address] 04/08/2024 Jaron Besson Immunization(s) administered Z23 ; Parkinson's disease without dyskinesia, unspecified whether manifestations fluctuate G20.A1 ; Nocturia R35.1 ; Hypertension, essential I10 ; Type 2 diabetes mellitus with other specified complication E11.69 ; Stage 3a chronic kidney disease (CKD) N18.31 and Routine medical exam Z00.00 [facility] [address] [address] 08/05/2024 Jaron Besson Type 2 diabetes mellitus with other specified complication E11.69 ; Mixed hyperlipidemia E78.2 ; Stage 3a chronic kidney disease (CKD) N18.31 and Parkinson's disease without dyskinesia, unspecified whether manifestations fluctuate G20.A1 [facility] [address] [address] 11/25/2024 Jaron Besson Pacemaker Z95.0 ; Exertional dyspnea R06.09 and Parkinson's disease without dyskinesia, unspecified whether manifestations fluctuate G20.A1 [facility] [address] [address] 12/09/2024 Jaron Besson Urge urinary incontinence N39.41 ; Hypertension, essential I10 and Parkinson's disease without dyskinesia, unspecified whether manifestations fluctuate G20.A1 [facility] [address] [address] 01/21/2024 Jaron Besson [facility] [address] [address] 01/28/2024 Jaron Besson [facility] [address] [place] [address] 2024 Jaron Besson [facility] [address] [address] 06/18/2024 Jaron Besson [facility] [address] [address] 07/14/2024 Jaron Besson [facility] [address] [address] 07/28/2024 Jaron Bahena [facility] [address] [facility] [address] [place] [address] 09/24/2024 Jaron Bahena Nocturia R35.1 Assessments Encounter Date Diagnosis (ICD Code) Assessment Notes Treatment Notes Treatment Clinical Notes Section Notes 12/09/2024 Hypertension, essential (ICD-10 - I10) Dizziness with orthostasis. Stop beta-eder. Currently on low dose. Cardiology visit from last week were reviewed. 12/09/2024 Urge urinary incontinence (ICD-10 - N39.41) Urinary incontinence symptoms have been better on Gemtesa. No changes in plan, will continue this and prescribe 09/24/2024 Nocturia (ICD-10 - R35.1) 08/05/2024 Type 2 diabetes mellitus with other specified complication (ICD-10 - E11.69) Microalbumin done today and is normal. No changes in meds at this point. Will reevaluate with labs. Please note I have done labs to monitor his chronic medical problems as noted below and I will review all labs personally 08/05/2024 Mixed hyperlipidemia (ICD-10 - E78.2) 11/25/2024 Pacemaker (ICD-10 - Z95.0) EKG done [...] weeks. Consider further workup at that point. 04/08/2024 Immunization(s) administered (ICD-10 - Z23) 04/08/2024 Parkinson's disease without dyskinesia, unspecified whether manifestations fluctuate (ICD-10 - G20.A1) Will follow with [facility] neuro. 01/22/2024 Parkinson's disease without dyskinesia, with fluctuating manifestations (ICD-10 - G20.A2) Given patient's somewhat interesting response to higher dose carbidopa/levodo pa I have asked him to titrate up very slightly to the twice daily dosage and we will initiate subspecialty referral to [facility] movement specialist. 01/22/2024 Orthostatic dizziness (ICD-10 - R42) Patient's blood pressure is on the low side and I think he is becoming relatively dehydrated during the day given his pattern of food and fluid consumption. Have asked him to drink a small bottle of Gatorade at a lunch break to see if this will help the afternoon dizziness symptoms. A1c has been good and his labs are not noted to cause hypoglycemia so we will hold off on labs at this point. 01/22/2024 Type 2 diabetes mellitus with other specified complication (ICD-10 - E11.69) A1c is perfect last visit. No changes in plans 11/25/2024 Parkinson's disease without dyskinesia, unspecified whether manifestations fluctuate (ICD-10 - G20.A1) I reviewed urology notes. I have asked them to discuss with cardiology tomorrow his pacemaker and where MRI can safely be done. He will see neurology at back in January and will follow along about whether or not further medication will be trialed. To me patient's tremor seems worse off Sinemet. 04/08/2024 Nocturia (ICD-10 - R35.1) Patient getting up every 2 hours to urinate. Start Tamsulosin nightly. 08/05/2024 Stage 3a chronic kidney disease (CKD) (ICD-10 - N18.31) 12/09/2024 Parkinson's disease without dyskinesia, unspecified whether manifestations fluctuate (ICD-10 - G20.A1) Sinemet caused some side effects but helping tremor. neurology note reviewed. They want imaging of head. Patient does not wish to have MRI scan done because of his concern about his pacemaker. Will do CT along with CTA, send this to and see if this might be helpful. 08/05/2024 Parkinson's disease without dyskinesia, unspecified whether manifestations fluctuate (ICD-10 - G20.A1) Seems to be in a fairly stable and safe environment from his Parkinson's. Will follow with neurology. Have reviewed neurology consult notes and has appointment scheduled 01/22/2024 Stage 3a chronic kidney disease (CKD) (ICD-10 - N18.31) On SGLT2 inhibitor. Could not tolerate finerenone. No changes in plans at this point. Blood pressure under good control. 04/08/2024 Hypertension, essential (ICD-10 - I10) Well controlled, continue current regimen. 04/08/2024 Type 2 diabetes mellitus with other specified complication (ICD-10 - E11.69) Well controlled, continue current regimen. 04/08/2024 Stage 3a chronic kidney disease (CKD) (ICD-10 - N18.31) Continue use of Farxiga. 04/08/2024 Routine medical exam (ICD-10 - Z00.00) HRA reviewed, no signs of cognitive impairment. 08/04 word recall Depression screening negative Up-to-date on RSV, shingles, pneumonia vaccinations, received flu vaccination today. Great functional status, no falls. Colonscopy was done within the last year. Stopped smoking 15-16 years ago, not eligible for lung cancer screening. Plan Of Treatment Pending Test Test Name Order Date Blood Sugar 06/02/2014 Sleep Study 12/24/2018 Physical Therapy 05/22/2017 CT Scan : Head, with/without contrast Occupational Therapy : Eval & Treatment 06/01/2017 H-CBC with AUTO DIFF 10/15/2015 H-CBC with AUTO DIFF 02/15/2017 H-CBC with AUTO DIFF 09/11/2016 H-CBC with AUTO DIFF 06/29/2015 H-CBC with AUTO DIFF 04/27/2015 H-CMP 04/27/2015 H-CMP 06/29/2015 H-CMP 06/06/2016 H-CMP 09/11/2016 H-CMP 02/15/2017 H-CMP 10/15/2015 H-CMP 06/01/2017 H-LIPID PANEL 06/01/2017 H-LIPID PANEL 10/15/2015 H-LIPID PANEL 02/15/2017 H-LIPID PANEL 09/11/2016 H-LIPID PANEL 06/06/2016 H-LIPID PANEL 06/29/2015 H-LIPID PANEL 04/27/2015 H-HGBA1C 04/27/2015 H-HGBA1C 06/29/2015 H-HGBA1C 06/06/2016 H-HGBA1C 09/11/2016 H-HGBA1C 02/15/2017 H-HGBA1C 10/15/2015 H-HGBA1C 06/01/2017 C-CBC 01/16/2014 C-CMP 01/16/2014 C-LIPID PANEL 01/16/2014 C-URIC ACID 01/16/2014 C-PSA 01/16/2014 C-HGBA1C 01/16/2014 M-Complete Blood Count Auto Diff 018 M-Complete Blood Count Auto Diff 018 M-Complete Blood Count Auto Diff 019 M-Complete Blood Count Auto Diff 019 M-Comprehensive Metabolic Panel 02/25/20 19 M-Comprehensive Metabolic Panel 02/09/20 18 M-Comprehensive Metabolic Panel 10/30/19 19 M-Comprehensive Metabolic Panel 08/13/19 19 M-Comprehensive Metabolic Panel 12/28/19 18 M-Hemoglobin A1C 12/27/2017 M-Hemoglobin A1C 02/08/2018 M-Hemoglobin A1C 08/12/2018 M-Hemoglobin A1C 10/29/2018 M-Hemoglobin A1C 02/24/2019 M-Uric Acid 08/12/2018 M-Lipid Panel 08/12/2018 M-Lipid Panel 12/27/2017 M-Lipid Panel 02/24/2019 M-Lipid Panel 10/29/2018 M-Thyroid Panel 10/29/2018 M-Thyroid Panel 12/12/2018 M-Thyroid Stimulating Hormone 02/24/2019 CTA : Head 12/09/2024 Future Test Test Name Order Date H-CMP 01/20/2015 H-LIPID PANEL 01/20/2015 H-HGBA1C 01/20/2015 H-LIPID PANEL 06/05/2017 M-Complete Blood Count Auto Diff 018 M-Comprehensive Metabolic Panel 04/29/20 18 M-Hemoglobin A1C 04/29/2018 M-Uric Acid 04/29/2018 M-Lipid Panel 04/29/2018 Next Appt Details Provider Name:Jaron Bahena, 12/30/2024 09:30:00 AM, [address] [place] [address], [phone], Insurance Providers Payer Name Payer Address Payer Phone Subscriber Number Group Number Insured Name Patient Relationship to Insured Coverage Start Date Coverage End Date [facility] MED[facility] [address] [place] [address] [id number] Briseyda Hector Jr Self - patient is the insured Medications Administered Medication Instructions Date of Administration Dosage Notes Kenalog 40mg 12/04/2016 40 mg Kenalog 40mg 06/12/2017 40 mg Kenalog 11/16/2015 1 mL Medical (General) History Medical History History ICD Code Pacemaker-bradycardia Former smoker - Negative low-dose CT sca n 09/24 diabetes [id number] ng diagnosed spring 2014 - dilated eye exam Yearly in august diastolic CHF with bradycardia requiring pacemaker gouty arthritis sleep apnea hyperlipidemia hypertension colonoscopy 2012-normal results GERD [Gastroesophageal reflux disease] Chronic Rhinorrhea RHETT on sleep study 02/20 Covid -19 Surgical History Surgery Date(Month/Year) carpal tunnel left knee pacemaker x2 eyelids Bilateral Cataract Removal 2021 lt eye tooth pulled 08/04/24 Hospitalization History Reason Date(Month/Year) pneumonia 1994 above
--- NOTE | 2024-12-24 06:54 | CT_ITS ---
FINAL REPORT CLINICAL HISTORY: PARKINSONS DISEASE FINDINGS: CTA HEAD TECHNIQUE: Thin section axial CT with contrast with 3D MIP reconstruction This study was performed with techniques to keep radiation doses as low as reasonably achievable, (ALARA). Individualized dose reduction techniques using automated exposure control or adjustment of mA and/or kV according to the patient''s size were employed. FINDINGS: No aneurysm is seen. There is moderate calcified plaque disease of the cavernous ICAs without critical stenosis. Remaining major intracranial vessels are patent without significant stenosis. . 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 This study was performed using automated techniques to achieve radiation exposure as low as reasonably achievable Reviewed, Interpreted and Dictated by Larisa Claros MD Transcribed by Faiza Osorio Authenticated and [facility]
--- NOTE | 2024-12-24 07:17 | CT_ITS ---
FINAL REPORT TECHNIQUE: Multiple axial CT sections were performed from the foramen magnum to the vertex. Coronal reformatted images were also obtained. Precontrast and postcontrast injection images were obtained. This study was performed with technique to keep radiation doses as low as reasonably achievable, (ALARA). Individualized dose reduction techniques using automated exposure control or adjustment of mA and/or kV according to the patient size were employed. CLINICAL HISTORY: PARKINSONS DISEASE WITHOUT DYSKINESIA FINDINGS: There is mild generalized atrophy. The ventricles are normal in size. There is no evidence of hemorrhage. No masses are identified. No extra-axial fluid collection is seen. The sinuses are normal. No osseous abnormality is seen on the bone window images. Postcontrast images demonstrate no abnormal enhancement. IMPRESSION: Mild generalized atrophy, otherwise unremarkable CT of the head with and without contrast. Reviewed, Interpreted and Dictated by Larisa Claros MD Transcribed by Faiza Osorio Authenticated and [facility]
[2024-12-24 07:32] LABS: Blood Urea Nitrogen 35 mg/dl (9-20); Creatinine,Serum 1.50 mg/dl (0.66-1.25); Estimated Glomerular Filt Rate 45 ml/min (>60); GFR (African American) 55 ML/MIN (>60)
[2024-12-24] MEDS: SODIUM CHLORIDE 0.9% 10ML SYR (RAD ONLY) 10 ML IV (08:09)
[2024-12-24] MEDS: 0.9 % SODIUM CHLORIDE 50 ML VIAL IV (08:09)
[2024-12-24] MEDS: IOPAMIDOL-370 (76%);100ML BOTTLE 100 ML IV (08:09)
== END 2024-12-24 23:59 | disposition home or self-care (01) ==
PROVIDERS: PCP Internal Medicine Adolescent Medicine; Visit Provider Internal Medicine Adolescent Medicine
DX: G31.89 Other specified degenerative diseases of nervous system (principal); I65.23 Occlusion and stenosis of bilateral carotid arteries; G20.A1 Parkinson's disease without dyskinesia, without mention of fluctuations
CPT/HCPCS: 36415; 70470; 70496; 82565; 84520; Q9967

== ENCOUNTER 2025-01-28 15:00 | Outpatient (RCR) | payer MEDICARE, SELFPAY | END 2025-01-28 23:59 | disposition home or self-care (01) | LOC: PT 15:00 | PROVIDERS: PCP Internal Medicine Adolescent Medicine; Visit Provider Student in an Organized Health Care Education/Training Program | DX: G20.A1 Parkinson's disease without dyskinesia, without mention of fluctuations (principal) | CPT/HCPCS: 97110; 97112; 97162; 97530; 97535 ==

== ENCOUNTER 2025-01-29 08:00 | Outpatient (RCR) | payer MEDICARE, SELFPAY ==
--- NOTE | 2025-01-14 08:47 | HMH.SLAPHASI ---
Speech & Language Evaluation Speech/Language Aphasia Evaluation Start: 01/14/25 08:14 Freq: once Status: Complete Protocol: Document 01/14/25 08:15 SIDDHARTHMARGA (Rec: 01/14/25 08:47 PHILLIP [id number]) Aphasia Assessment/Goals/Plan Assessment Date of Evaluation: 01/13/25 Evaluation Type Initial Certification Assessment/Problems parkinson's disease per MD order Does Patient Qualify Yes for Service Qualify/Failure Based on clinical observations made throughout the Comment evaluation, results from informal and standardized assessments, and information gathered from patient interview, Mr. Hector would benefit from skilled speech therapy services 1-2x/week to address motor speech, cognitive-linguistic, and word finding skills in order to express his thoughts/ideas in a more effective, efficient way, improve cognitive-linguistic function and word finding, and improve speech intelligibility and salvia management across multiple settings and environments. He would also benefit from a MBSS to further assess his swallow. Plan Pt will be seen # 2 times/week for # weeks 12 Anticipate reaching 8 STG in # weeks Anticipate reaching 12 LTG in # weeks Pt/Guardian verbally Yes ack understanding of dx/prognosis/ goals G -code Required No STG-Auditory Comprehension Paragraph Level 80 3rd Element 90 STG-Verbal Expressive Language Repetitive Abilities 80 STG-Attending/Orientation/Memory Delayed Recall 75 Attention/ 75 Concentration Memory Recall 75 STG-Comparative/Linguistic Skills Thought Organization 80 Categorization 75 Ability STG-Divergent Thinking Deductive Reasoning 70 Shelter Goals Increase oral motor Yes: 80 tone to improve intelligibility. Increase auditory Yes: 90 comprehension skills to communicate w/ family & friends Increase verbal Yes: 80 expression skills to communicate w/ family & friends. Increase cognitive Yes: 75 skills to communicate w/family & friends Education Instructions Discussed preliminary test results and POC with patient provided and both of which expressed understanding. Pt/Caregiver Able to Able to recall/restate Recall Information Reinforcement needed No Speech & Language HPI History Present Illness Description of Pt is a pleasant 79 year old male accompanied by his Patient Problem for a speech and language/cognitive linguistic evaluation at [facility]. They have expressed concerns with speech intelligibility, memory and word finding, swallowing, and salvia management. They reported that they suspect he has had PD for awhile but is a more recent diagnosis with majority/ more notable deficits in the recent year. Rehab Services Speech therapy Assessed Aphasia Evaluations Communication Speech reports she is able to understand pt 70% of the Intelligibility time, and he was agreeable. They report that less familiar listeners understand him 50-60% of the time. Noting that his speech becomes more slurred as day progresses Auditory Yes: Word Level Comprehension Sentences Conversation No: Following Directions Paragraph AC Comment Pt was noted to have difficulty with multistep directions and was unable to answer questions from a paragraph read without multiple repetitions. Reading Yes: Letter Naming Comprehension Word Naming Verbal Expressive Yes: Automatic Speech Language Completing Sentences No: Repetition Abilities Word Level Naming LINA Comment Pt was observed to require 3 trial repetitions of nonrelated words to recall, only when given both phonemic and semantic prompts/cues. He was also observed to have difficulty with confrontational naming . WL Comment Did not assess 2' tremor Attending/ Yes: Orientation Orientation/Memory No: Delayed Recall W/Interference Attention/Concentration Memory AOM Comment This is reportedly one of pt's primary areas of difficulty. He was observed to nervous laugh when prompted with these tasks and required mod-max prompts/ cues to complete subsections Congnitive/ No: Thought Organization Linguistic Skills Categorization CLS Comment The fluency portion of ACE3 was difficult scoring 3/14. Pt was only able to name 4 items in a minute. Additional Evaluation(s) Additional Tests Pt was given [place] Cognitive Exam; some portions were not administered so full score was unable to be provided. However, pt scores a 19/26 for memory, 3/14 for fluency, 13/18 attention, and 12/26 for language. 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 He would benefit from oral motor speech to address respiration rate, phonation time, and educating on compensatory measures. PHYSICIAN CERTIFICATION: I certify the specified therapy services for Briseyda Hector JR are required, authorized, and reviewed every 30 days.
== END 2025-01-29 23:59 | disposition home or self-care (01) ==
LOC: ST 08:00
PROVIDERS: PCP Internal Medicine Adolescent Medicine; Visit Provider Student in an Organized Health Care Education/Training Program
DX: G20.A1 Parkinson's disease without dyskinesia, without mention of fluctuations (principal)
CPT/HCPCS: 92523

== ENCOUNTER 2025-02-03 10:12 | Outpatient (CLI) | payer MEDICARE, SELFPAY ==
--- OUTSIDE RECORDS SUMMARY | 2024-09-06 17:30 | XMS_ITS ---
Author Organization [facility] Address [address] [facility] [address] [place] [address] Care Team Providers Care Program Dir Name Role Phone JosefJaron Primary Care Provider Migration, Provider Unavailable Unavailable Allergies Allergen (clinical drug ingredient) Drug/Non Drug Allergy documented on EMR Reaction Allergy Type Onset Date Status Sulfamethoxazole Unknown Drug Allergy Active REASON FOR VISIT [facility] To [facility] Conversion Encounter Medications Medication SIG (Take, Route, Frequency, Duration) Notes Start Date End Date Status Levothyroxine Sodium 50 MCG 1 tab(s) orally once a day; Duration: 90 days Active Atorvastatin Calcium 40 MG 1 tab(s) orally once a day; Duration: 90 days Active GLUCOMETER WITH LANCETS AND TEST STRIPS DX: E11.9 DIRECTED TWICE A DAY *Please review for potential replacement for e-prescription and drug interaction check* 06/05/2014 Active ACCU CHECK GLUCOMETER USE DIRECTED E11.9 *Ple ase review for potential replacement for e-prescription and drug interaction check* 05/07/2017 Active Allopurinol 100 MG 1 tab(s) orally once a day; Duration: 90 days Active Tamsulosin HCl 0.4 MG 1 cap(s) orally once a day; Duration: 90 days 04/08/2024 Active Pantoprazole Sodium 40 MG 1 tab(s) orally once a day; Duration: 90 days Active Metoprolol Succinate ER 50 MG TAKE 1/2 TABLET ORALLY ONCE A DAY 90 DAYS; Duration: 90 Active amLODIPine Besylate 5 MG 1 tab(s) orally once a day; Duration: 90 days Active Lisinopril 5 MG 1 tab(s) orally once a day; Duration: 90 days Active Farxiga 10 MG 1 tab(s) orally once a day; Duration: 90 days 12/11/2023 Active Vitamin D3 25 MCG (1000 UT) as directed orally once a day; Duration: 30 day(s) Active B-12 2500 MCG 1 tab(s) sublingually once a day; Duration: 30 day(s) Active Aspirin 81 MG 1 cap(s) orally once a day; Duration: 90 days Active Carbidopa-Levodopa 25-100 MG 1 tab(s) orally 3 times a day; Duration: 90 days 11/15/2021 Active ACCU CHECK SOFT CLICK LANCETS DIRECTED ONCE DAILY; Duration: 30 DAYS E11.9 *Please review for potential replacement for e-prescription and drug interaction check* 05/07/2017 Active ACCU CHECK TEST STRIPS DIRECTED ONCE DAILY; Duration: 30 DAYS E11.9 *Please review for potential replacement for e-prescription and drug interaction check* 05/07/2017 Active Encounters Encounter Location Date [facility] [address] [facility] [address] [place] [address] 09/06/2024 Provider Migration Plan Of Treatment Next Appt Details Provider Name:Jaron Bahena, 02/24/2025 09:45:00 AM, [address] [place] [address], [phone], Progress Notes * Briseyda BRITT JR BDOB: [birth year] (79 yo M)Acc No.[id number]:09/06/2024 Patient: Nabeel EVITA SHIELDS Briseyda Dixon Provider: Shaila sorto Migration :1945 A ge:79 Y S ex:Male Date:09/06/2024 Address:[address] [place], [place] [id number] Pcp:Jaron Bahena Subjective: * Chief Complaints: * 1 . Multum To Medispan Conversion Encounter. * Medical History: * Medications: T aking GLUCOMETER WITH LANCETS AND TEST STRIPS DX: E11.9 DIRECTED TWICE A DAY , Notes to Pharmacist: *Please review for potential replacement for e-prescription and drug interaction check*, Taking ACCU CHECK GLUCOMETER USE DIRECTED , Notes to Pharmacist: E11.9 *Please review for potential replacement for e-prescription and drug interaction check*, Taking ACCU CHECK SOFT CLICK LANCETS DIRECTED ONCE DAILY , Notes to Pharmacist: E11.9 *Please review for potential replacement for e-prescription and drug interaction check*, Taking ACCU CHECK TEST STRIPS DIRECTED ONCE DAILY , Notes to Pharmacist: E11.9 *Please review for potential replacement for e-prescription and drug interaction check*, Taking Vitamin D3 25 MCG (1000 UT) Tablet as directed orally once a day , Taking B-12 2500 MCG Tablet 1 tab(s) sublingually once a day , Taking Aspirin 81 MG Tablet Delayed Release 1 cap(s) orally once a day , Taking Carbidopa-Levodopa 25-100 MG Tablet 1 tab(s) orally 3 times a day , Taking Farxiga 10 MG Tablet 1 tab(s) orally once a day , Taking Tamsulosin HCl 0.4 MG Capsule 1 cap(s) orally once a day , Taking Lisinopril 5 MG Tablet 1 tab(s) orally once a day , Taking Pantoprazole Sodium 40 MG Tablet Delayed Release 1 tab(s) orally once a day , Taking Metoprolol Succinate ER 50 MG Tablet Extended Release 24 Hour TAKE 1/2 TABLET ORALLY ONCE A DAY 90 DAYS , Taking amLODIPine Besylate 5 MG Tablet 1 tab(s) orally once a day , Taking Allopurinol 100 MG Tablet 1 tab(s) orally once a day , Taking Levothyroxine Sodium 50 MCG Tablet 1 tab(s) orally once a day , Taking Atorvastatin Calcium 40 MG Tablet 1 tab(s) orally once a day * Allergies: S ulfamethoxazole. Objective: * Vitals: Assessment: Plan: * Treatment: * * Electronic signature of Prov shari Migration on 02/03/2025 at 10:54 AM EDT Sign off status: Pending * Provider: Shaila sorto Migration Date: 09/06/2024 Generated for Thomas nelson/Isabella/Luis on: 02/03/2025 10:54 AM EDT
--- OUTSIDE RECORDS SUMMARY | 2024-12-09 05:15 | XMS_ITS ---
Author Organization [facility] RISHABH Armstrong ADIS Address [address] [facility] [address] [place], [place] [address] Care Team Providers Care Wax Blender Name Role Phone Jaron Bahena Primary Care Provider [phone] Allergies Allergen (clinical drug ingredient) Drug/Non Drug Allergy documented on EMR Reaction Allergy Type Onset Date Status Sulfamethoxazole Unknown Drug Allergy Active Results Component Value Reference Range Notes CT Scan : Head, with/without contrast Reviewed date:12/31/2024 12:57:36 PM Interpretation: Performing Lab: Notes/Report: CTA : Head Reviewed date:12/25/2024 02:53:32 PM Interpretation: Performing Lab: Notes/Report: Reason For Referral Reason CT head with CTA of head, [facility] if possible, TR, will need BUN and creatinine the morning of test. Needs copy sent to Dr. Navarrete at neurology Diagnosis 1 Parkinson's disease without dyskinesia, unspecified whether manifestations fluctuate (G20.A1) Referral Organization [facility] Referring Provider First Name Jaron Referring Provider Last Name Josef Referring Provider Speciality Internal M edicine General Notes Liberty Cherry 01/2025 02:58:18 PM > waiting on pre-cert, Liberty Cherry 12/10/2024 03:00:43 PM > approved and faxed to [facility] to schedule Referral Priority Stat REASON FOR VISIT 2 wk f/u, refill on gemtesa, slurred speech, every time bends over gets dizzy Medications Medication SIG (Take, Route, Frequency, Duration) Notes Start Date End Date Status amLODIPine Besylate 5 MG 1 tab(s) orally [...] A DAY 90 DAYS; Duration: 90 Active ACCU CHECK SOFT CLICK LANCETS DIRECTED [...] e-prescription and drug interaction check* 05/07/2017 Active Carbidopa-Levodopa 25-100 MG 1 tab(s) orally 3 times a day; Duration: 90 days 11/15/2021 Active Gemtesa 75 MG 1 tablet Orally Once a day; Duration: 90 days 12/09/2024 Active Gemtesa 75 MG 1 tablet Orally Once a day Active GLUCOMETER WITH LANCETS AND TEST STRIPS DX: E11.9 DIRECTED TWICE A DAY *Please review for potential replacement for e-prescription and drug interaction check* 06/05/2014 Active Allopurinol 100 MG 1 tab(s) orally once a day; Duration: 90 days Active Levothyroxine Sodium 50 MCG 1 tab(s) orally once a day; Duration: 90 days Active Atorvastatin Calcium 40 MG 1 tab(s) orally once a day; Duration: 90 days Active Tamsulosin HCl 0.4 MG 1 cap(s) orally once a day; Duration: 90 days 04/08/2024 Active Social History Tobacco Use: Social History Observation Description Date Details (start date - stop date) Former Smoker NA - NA Smoking: Question Answer Notes Are you a: former smoker How long has it been since you last smoked? > 10 years Problems Problem Type SNOMED Code ICD Code Onset Dates Problem Status W/U Status Risk Notes Problem Urge urinary incontinence (N39.41) Active confirmed Vital Signs Temperature 97.5 degrees Fahrenheit 12/10/19 25 Blood pressure systolic 120 mm Hg 12/10/19 25 Blood pressure diastolic 70 mm Hg 025 Heart Rate 64 /min 12/09/2024 Height 69 in 12/09/2024 Weight 186 lbs 12/09/2024 BMI 27.46 kg/m2 12/09/2024 Encounters Encounter Location Date Provider Diagnosis [address] [address] 12/09/2024 Jaron Bahena Urge urinary incontinence N39.41 ; Hypertension, essential I10 and Parkinson's disease without dyskinesia, unspecified whether manifestations fluctuate G20.A1 Assessments Encounter Date Diagnosis (ICD Code) Assessment Notes Treatment Notes Treatment Clinical Notes Section Notes 12/09/2024 Urge urinary incontinence (ICD-10 - N39.41) Urinary incontinence symptoms have been better on Gemtesa. No changes in plan, will continue this and prescribe 12/09/2024 Hypertension, essential (ICD-10 - I10) Dizziness with orthostasis. Stop beta-eder. Currently on low dose. Cardiology visit from last week were reviewed. 12/09/2024 Parkinson's disease without dyskinesia, unspecified whether manifestations fluctuate (ICD-10 - G20.A1) Sinemet caused some side effects but helping tremor. [facility] note reviewed. They want imaging of head. Patient does not wish to have MRI scan done because of his concern about his pacemaker. Will do CT along with CTA, send this to [facility] and see if this might be helpful. Plan Of Treatment Medication Medication Name Sig Start Date Stop Date Notes Gemtesa 75 MG 1 tablet Orally Once a day; Duration: 90 days 12/09/2024 Treatment Notes Assessment Notes Urge urinary incontinence Urinary incont inence symptoms have been better on Gemtesa. No changes in plan, will continue this and prescribe Hypertension, essential Dizziness with orthostasis. Stop beta-eder. Currently on low dose. Cardiology visit from last week were reviewed. Parkinson's disease without dyskinesia, unspecified whether manifestations fluctuate Sinemet caused some side effects but helping tremor. neurology note reviewed. They want imaging of head. Patient does not wish to have MRI scan done because of his concern about his pacemaker. Will do CT along with CTA, send this to and see if this might be helpful. Referrals Referral Date Details 12/09/2024 12/09/2024, CT head with CTA of head, [facility] if possible, TR, will need BUN and creatinine the morning of test. Needs copy sent to Dr. Navarrete at neurology Next Appt Details Follow Up: prn, Reason: Provider Name:Jaron Jaskaran Bahena, 02/24/2025 09:45:00 AM, [address] [place] [address], [phone], Progress Notes * Briseyda BRITT JR BDOB: [birth year] (79 yo M)Acc No.[id number]:12/09/2024 Progress Notes Patient: Briseyda CARDONA JR B Provider: Nabeel Bahena MD :1945 A ge:79 Y S ex:Male Date:12/09/2024 Address:[address] [place], [place] [id number] Subjective: * Chief Complaints: * 1 . 2 wk f/u. 2. Refill on gemtesa. 3. Slurred speech. 4. Every time bends over gets dizzy. * HPI: g en: Mr. Tawny Farrell presents to the office with a CC of slurred speech and dizziness. He states that the dizziness occurs after he bends down and gets back up. He describes the slurred speech happening when he takes the Sinemet, however when he does not take the Sinemet his tremor becomes worse. We also discussed getting a refill on his Gemtesa. * Medical History: P acemaker-bradycardia, Former smoker - Negative low-dose CT scan 09/24, diabetes [id number] diagnosed spring 2014 - dilated eye exam Yearly in august, diastolic CHF with bradycardia requiring pacemaker, Gouty arthritis, Sleep apnea, Hyperlipidemia, Hypertension, Colonoscopy 2012-normal results, GERD [Gastroesophageal reflux disease], Chronic Rhinorrhea, RHETT on sleep study 02/20, Covid -19. * Surgical History: c arpal tunnel , left knee , pacemaker x2 , eyelids , Bilateral Cataract Removal 2021, lt eye , tooth pulled 08/04/24. * Hospitalization/Major Diagno stic Procedure: a alfonso , pneumonia 1994. * Family History: F ather: . M other: . P aternal Grand Father: . P aternal Grand Mother: . M aternal Grand Father: . M aternal Grand Mother: .?Children: alive. 2 son(s) - healthy. . * Social History: S moking A re you a: f ormer smoker, H ow long has it been since you last smoked??> 10 years. R ecreational drug use: no. 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 Home smoke detector use: yes. Living Will: Yes. Alcohol: socially. Sexually active: yes. Travel outside [place]: no. 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 * Medications: T aking Gemtesa 75 MG Tablet 1 tablet Orally Once a day , Taking GLUCOMETER WITH LANCETS AND TEST STRIPS DX: [...] N urse: dw, Pain: 0, Temp: 97.5, RR: 20, HR: 64, BP: 120/70, Ht: 69, Wt: 186, BMI:27.46. * Examination: G eneral Examination: General P leasant and Cooperative, NAD on RA,. Heart: R egular Rate and Rhythm, no murmur, rubs or gallops. Lungs: L CTAB, No wheezes, crackles or rhonchi, Good air movement,. Abdomen: S oft, NTND, BSNA, No organomegaly or peritoneal signs.. Neurologic Exam: P ill rolling tremor noted bilaterally, alert and oriented x3.. Extremities: n ormal ROM, n o clubbing, no edema. Psych N ormal Mood/Affect. Assessment: * Assessment: 1. U rge urinary incontinence - N39.41 (Primary) 2 . H ypertension, essential - I10 3 . P arkinson's disease without dyskinesia, unspecified whether manifestations fluctuate - G20.A1 Plan: * Treatment: 2. H ypertension, essential Notes: Dizziness with orthostasis. Stop beta-eder. Currently on low dose. Cardiology visit from last week were reviewed. 3. P arkinson's disease without dyskinesia, unspecified whether manifestations fluctuate I maging: CT Scan : Head, with/without contrast * ?Imaging: CTA : Head* Katia Samuels 12/25/2024 12: 13:05 PM EDT >This DI was reviewed by Liberty Cherry on 12/25/2024 at 14:53 PM EDT * Notes: Sinemet caused some side effects but helping tremor. [facility] note reviewed. They want imaging of head. Patient does not wish to have MRI scan done because of his concern about his pacemaker. Will do CT along with CTA, send this to and see if this might be helpful.? Referral To: ?Reason:CT head with CTA of head, [facility] if possible, TR, will need BUN and creatinine the morning of test. Needs copy sent to Dr. Navarrete at neurology * Follow Up: p rn * * Sign off status: Completed true * Provider: Nabeel Bahena MD Date: 0 12/09/2024 Generated for Thomas nelson/Isabella/Stevenitting on: 0 02/03/2025 10:52 AM EDT History and Physical Notes * HPI (History of Present Illness) Category Sub-Category Detail Notes Category Not es gen Mr. Tawny Farrell presents to the office with a CC of slurred speech and dizziness. He states that the dizziness occurs after he bends down and gets back up. He describes the slurred speech happening when he takes the Sinemet, however when he does not take the Sinemet his tremor becomes worse. We also discussed getting a refill on his Gemtesa. Examination Category Sub-Category Detail Notes Category Not es General Examination Heart: Regular Rate and Rhythm, no murmur, rubs or gallops Lungs: LCTAB, No wheezes, c rackles or rhonchi, Good air movement, Abdomen: Soft, NTND, BSNA, No organomegaly or peritoneal signs. Extremities: normal ROM, no clubb ing, no edema Neurologic Exam: Pill rolling tremor noted bilaterally, alert and oriented x3. General Pleasant and Coopera tive, NAD on RA, Psych Normal Mood/Affect Consultation Request Notes Referral Date Referring Provider Referred Provider Not es 12/09/2024 Jaron Bahena , CT head with CTA of head, [facility] if possible, TR, will need BUN and creatinine the morning of test. Needs copy sent to Dr. Navarrete at neurology
--- OUTSIDE RECORDS SUMMARY | 2024-12-29 09:40 | XMS_ITS | Encounter Summary ---
Author Organization [facility] Address [address] [id number] Care Team Providers Care Chemotherapist Name Role Phone Jaron Bahena MD Primary Care Provider [phone] Reason for Referral * Consultation (Routine) - Authorized Specialty Diagnoses / Procedures Referred By Shantell cotton Referred To Contact Speech Pathology Diagnoses Parkinson's disease 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 (CMS/HCC) Jeffery Navarrete MD [address] [address] Phone: tel: fax: Referral ID Status Reason Start Date Expiration Date Visits Requested Visits Authorized [id number] Authorized Consult and Treat 12/29/2024 06/30/2026 1 1 * Consultation (Routine) - Authorized Specialty Diagnoses / Procedures Referred By Shantell cotton Referred To Contact Physical Therapy Diagnoses Parkinson's disease 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 (CMS/HCC) Jeffery Navarrete MD [address] [address] Phone: tel: fax: Referral ID Status Reason Start Date Expiration Date Visits Requested Visits Authorized [id number] Authorized Consult and Treat 12/29/2024 06/30/2026 1 1 Reason for Visit * Reason Comments Follow-up Encounter Details Date Type Department Care Team (Latest Contact Info) Description 12/29/2024 9:40 AM EDT Office Visit [place] [facility] [address] [place] [address] Jeffery Navarrete MD [address] [place] [address] Parkinson's disease 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 (CMS/HCC) (Primary Dx) Social History Tobacco Use [...] Sign Reading Time Taken Comments Blood Pressure 120/69 12/29/2024 9:37 AM EDT Pulse 69 12/29/2024 9:37 AM EDT Temperature - - Respiratory Rate - - Oxygen Saturation 100% 12/29/2024 9:37 AM EDT Inhaled Oxygen Concentration - - Weight 83.6 kg (184 lb 4.9 oz) 12/29/2024 9:37 A M EDT Height 185.4 cm (6' 1 ) 12/29/2024 9:37 AM EDT Body Mass Index 24.32 12/29/2024 9:37 AM EDT documented in this encounter Miscellaneous Notes * Progress Notes - Jeffery Navarrete MD - 12/29/2024 9:40 AM EDT Subjective Briseyda Hector presents to the [facility] as a returning patient today with/for Follow-up. 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 He is here with his . Is working part-time. No family hx of neurological disorders. Is on Synthroid 50 mcg daily, Virbegron 75 mg daily, C/L 1 tab daily. B12, TSH, RPR, Folate: normal or negative. MRI brain: could not be done because of pacemaker. Off of levodopa: felt nervous and hence restarted at 1 tab daily. Stopping metoprolol: clinically better and dizziness has resolved. Denies urinary frequency or incontinence. No falls. Short term memory lapses, intermittent Denies hallucinations Choking episodes + Drooling+ Summary from first visit: RUE tremor was the first symptom in 2019. Later noted dragging feet when walking. Also has thought blocks for 5 years [...] initiation has led to development of hallucinations. O/E: RUE>LUE resting tremor Masked face. Decreased eyeblink frequency. Hypophonia Jaw tremor. R>L bradykinesia R>L rigidity. Shuffling gait, no freezing. Normal coordination No cortical signs on exam. 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 PLAN: Pending urologist appt. Speech therapy and physical therapy referral. Increase C/L to 1 tab TID. Check BP daily. F/u in 3 months. 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 Social History Tobacco Use Smoking status: Former Types: Cigarettes Smokeless tobacco: Never Substance Use Topics Alcohol use: Yes Medications Ordered Prior to Encounter[1] Allergies[2] All medications have been reviewed today. Objective Vitals: 12/29/24 0937 BP: 120/69 Pulse: 69 SpO2: 100% Assessment & Plan Parkinson's disease 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 ([facility]) Orders: Ambulatory referral to Physical Therapy; Future Ambulatory referral to Speech Therapy to Eval and Treat; Future Counseling Documentation: The patient and was counseled regarding risks and benefit of treatment options, instructions for management, patient and family education, and impressions. Education provided was verbal counseling. Additional time was spent in care coordination including medical record review. The total time of encounter was 30 minutes and greater than 50% of the visit was spent in counseling/coordination of care. . [1] Current Outpatient Medications on File Prior to Visit Medication Sig Dispense Refill allopurinol (Zyloprim) 100 MG tablet Take 1 tablet by mouth daily. amantadine (Symmetrel) 100 MG tablet daily. amLODIPine (Norvasc) 5 MG tablet Take 1 tablet by mouth daily. aspirin 81 MG EC tablet Take 1 tablet by mouth 1 time each day. atorvastatin (Lipitor) 40 MG tablet Take 1 tablet by mouth 1 time each day. carbidopa-levodopa (Sinemet) 25-100 MG tablet Take 2 tablets by mouth daily. cyanocobalamin (Vitamin B-12) 2500 MCG tablet Take 500 mcg by mouth 1 time each day. levothyroxine (Synthroid, Levoxyl) 50 MCG tablet Take 1 tablet by mouth daily. lisinopril 5 MG tablet Take 1 tablet by mouth daily. dannebsqrqem-yltufsvk-mvcpi acid-coenzyme q10 (Preservision AREDS 2) capsule Take 1 capsule by mouth daily. pantoprazole (Protonix) 40 MG EC tablet Take 1 tablet by mouth 1 time each day. Vibegron 75 MG tablet Take 75 mg by mouth 1 time each day. metoprolol succinate XL (Toprol-XL) 50 MG 24 hr tablet Take 25 mg by mouth daily. (Patient not taking: Reported on 12/29/2024) tamsulosin (Flomax) 0.4 MG 24 hr capsule Take 1 capsule by mouth daily. (Patient not taking: Reported on 12/29/2024) No current facility-administered medications on file prior to visit. [2] Allergies Allergen Reactions Sulfa Drugs Unknown - Patient states they do not know rxn details Sulfamethoxazole Unknown - Patient states they do not know rxn details Other Reaction(s): Unknown documented in this encounter Plan of Treatment Upcoming Encounters Date Type Department Care Team (Late st Contact Info) Description 04/07/2025 10:10 AM EST Office Visit [facility] [address] [place] [address] Keisha Blum, CLEMENT [address] [place] [address] Scheduled Referrals Name Type Priority Associated Diagnoses Orde r Schedule Ambulatory referral to Physical Therapy Outpatient Referral Routine Parkinson's disease 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 (CMS/[facility]) Expected: 12/29/2024 (Approximate), Expires: 07/01/2026 Ambulatory referral to Speech Therapy to Eval and Treat Outpatient Referral Routine Parkinson's disease 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 (CMS/HCC) Expected: 12/29/2024 (Approximate), Expires: 07/01/2026 documented as of this encounter Visit Diagnoses Diagnosis Parkinson's disease 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 (CMS/HCC)- Primary documented in this encounter Additional Health Concerns Assessment Noted Time A fall risk assessment has been complete d for the patient 12/29/2024 9:39 AM EDT A Body Mass Index follow-up plan has been documented for the patient 12/30/2024 4:19 PM EDT documented as of this encounter Care Teams Chemotherapist Relationship Specialty Start Date End Date Jaron Bahena MD [address] [place] [address] PCP - General 10/15/20 documented as of this encounter
--- OUTSIDE RECORDS SUMMARY | 2024-12-30 05:30 | XMS_ITS ---
Author Organization [facility] Address [address] [facility] [address] [place], [place] [address] Care Team Providers Care Fingerprinter Name Role Phone Jaron Bahena Primary Care Provider Allergies Allergen (clinical drug ingredient) Drug/Non Drug Allergy documented on EMR Reaction Allergy Type Onset Date Status Sulfamethoxazole Unknown Drug Allergy Active REASON FOR VISIT f/u - dizziness is better, wants to have PT , Speech, side effects with eating, Discuss CT Medications Medication SIG (Take, Route, Frequency, Duration) Notes Start Date End Date Status Carbidopa-Levodopa 25-100 MG 1 tab(s) orally once a week; Duration: 90 days 11/15/2021 Active Pantoprazole Sodium 40 MG Take 1 tablet by mouth once daily; Duration: 90 Active Tamsulosin HCl 0.4 MG 1 cap(s) orally once a day; Duration: 90 days 04/08/2024 Active Lisinopril 5 MG Take 1 tablet by mouth once daily; Duration: 90 Active Allopurinol 100 MG 1 tab(s) orally once a day; Duration: 90 days Active Levothyroxine Sodium 50 MCG 1 tab(s) orally once a day; Duration: 90 days Active Farxiga 10 MG 1 tab(s) orally once a day; Duration: 90 days 12/11/2023 Active amLODIPine Besylate 5 MG 1 tab(s) orally once a day; Duration: 90 days Active Atorvastatin Calcium 40 MG 1 tab(s) orally once a day; Duration: 90 days Active ACCU CHECK SOFT CLICK LANCETS DIRECTED ONCE DAILY; Duration: 30 DAYS E11.9 *Please review for potential replacement for e-prescription and drug interaction check* 05/07/2017 Active B-12 2500 MCG 1 tab(s) sublingually [...] day; Duration: 30 day(s) Active ACCU CHECK GLUCOMETER USE DIRECTED E11.9 *Ple ase review for potential replacement for e-prescription and drug interaction check* 05/07/2017 Active Myrbetriq 50 MG 1 tablet Orally Once a day; Duration: 90 days 12/30/2024 Active Gemtesa 75 MG 1 tablet Orally Once a day Active GLUCOMETER WITH LANCETS AND TEST STRIPS DX: E11.9 DIRECTED TWICE A DAY *Please review for potential replacement for e-prescription and drug interaction check* 06/05/2014 Active Social History Tobacco Use: Social History Observation Description Date Details (start date - stop date) Former Smoker NA - NA Smoking: Question Answer Notes Are you a: former smoker How long has it been since you last smoked? 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 Vital Signs Temperature 98 degrees Fahrenheit 12/30/2024 Blood pressure systolic 118 mm Hg 12/31/19 25 Blood pressure diastolic 72 mm Hg 025 Heart Rate 68 /min 12/30/2024 Height 69 in 12/30/2024 Weight 186 lbs 12/30/2024 BMI 27.46 kg/m2 12/30/2024 Encounters Encounter Location Date Provider Diagnosis [address] [address] 12/30/2024 Jaron Bahena Atrioventricular blo ck, complete I44.2 ; Hypertension, essential I10 ; Parkinsons disease G20 and Nocturia R35.1 Assessments Encounter Date Diagnosis (ICD Code) Assessment Notes Treatment Notes Treatment Clinical Notes Section Notes 12/30/2024 Atrioventricular block, complete (ICD-10 - I44.2) Heart rate stable. Stay off beta-eder, on pacemaker 12/30/2024 Hypertension, essential (ICD-10 - I10) - BP well controlled, checks daily at home - Metoprolol discontinued due to hypotension and dizziness, now improved - Continue lisinopril 5mg 12/30/2024 Parkinsons disease (ICD-10 - G20) - PD vs Lewy Body Dementia - Follows with Dr. Navarrete at Neurology - Unable to obtain MRI due to pacemaker - CT head and CTA mostly unremarkable with general atrophy, most likely will still require MRI head - Takes 1-3 sinemet per day, patient feels better on once per day with less side effects - Speech and PT referral placed and plan to go to [facility], patient has been drooling and having oropharyngeal dysphagia. 12/30/2024 Nocturia (ICD-10 - R35.1) - Gemtesa helping but copay very expensive, provided samples - Sent Rx for Mybetriq, may be more affordable - Has appointment with urology 01/05 Plan Of Treatment Medication Medication Name Sig Start Date Stop Date Notes Myrbetriq 50 MG 1 tablet Orally Once a day; Duration: 90 days 12/30/2024 Treatment Notes Assessment Notes Atrioventricular block, complete Heart r ate stable. Stay off beta-eder, on pacemaker Hypertension, essential - BP well controlled, checks daily at home - Metoprolol discontinued due to hypotension and dizziness, now improved - Continue lisinopril 5mg Parkinsons disease - PD vs Lewy Body Dementia - Follows with Dr. Navarrete at Neurology - Unable to obtain MRI due to pacemaker - CT head and CTA mostly unremarkable with general atrophy, most likely will still require MRI head - Takes 1-3 sinemet per day, patient feels better on once per day with less side effects - Speech and PT referral placed and plan to go to [facility], patient has been drooling and having oropharyngeal dysphagia. Nocturia - Gemtesa helping but copay very expensive, provided samples - Sent Rx for Mybetriq, may be more affordable - Has appointment with urology 01/05 Next Appt Details Follow Up: 2 Months, Reason: Provider Name:Jaron Jaskaran Bahena, 02/24/2025 09:45:00 AM, [address] [place] [address], [id number], Progress Notes * Briseyda HECTOR JR BDOB: [birth year] (79 yo M)Acc No.[id number]:12/30/2024 Progress Notes Patient: Briseyda CARDONA JR Provider: Nabeel Bahena MD :1945 A ge:79 Y S ex:Male Date:12/30/2024 Address:[address] [place] [address], [id number] Subjective: * Chief Complaints: * 1 . F/u - dizziness is better. 2. wants to have PT , Speech. 3. Side effects with eating. 4. Discuss CT. * HPI: g en: Briseyda Hector is a 79 yo here for follow up. He is accompanied by his . He recently saw Dr. Navarrete yesterday for his Lewy Body Dementia. He recommended Sinemet three times per day but he feels better when taking it once per day. Over the last few weeks he has been drooling more and having trouble swallowing. Feels like food is getting stuck in his throat. Dr. Navarrete put in referral for speech and physical therapy which they would like to do in [facility]. Symptoms of dizziness are improved since stopping the beta eder. checks BP daily and has been normal. He is doing well on Gemtesa, getting better sleep since he is not getting up to urinate as frequently. However it is very expensive and they ask about alternative option. Has appointment with urology on 01/05. * Medical History: P acemaker-bradycardia, Former smoker - Negative low-dose CT scan 09/24, diabetes xer-qjuaeas-kflmlmaxi diagnosed spring 2014 - dilated eye exam Yearly in august, diastolic CHF with bradycardia requiring pacemaker, Gouty arthritis, Sleep apnea, Hyperlipidemia, Hypertension, Colonoscopy 2012-normal results, GERD [Gastroesophageal reflux disease], Chronic Rhinorrhea, RHETT on sleep study 02/20, Covid -. * Surgical History: c arpal tunnel , left knee , pacemaker x2 , eyelids , Bilateral Cataract Removal 2021, lt eye , tooth pulled 08/04/24. * Hospitalization/Major Diagno stic Procedure: a alfonso , pneumonia 1994. * Family History: F ather: . M other: . P aternal Grand Father: . P aternal Grand Mother: . M atedomingol Grand Father: . M aternal Grand Mother: [...] tab(s) orally once a day , Taking amLODIPine Besylate 5 MG Tablet [...] Carbidopa-Levodopa 25-100 MG Tablet 1 tab(s) orally once a week , Taking Pantoprazole Sodium 40 MG Tablet Delayed Release Take 1 tablet by mouth once daily , Taking Lisinopril 5 MG Tablet Take 1 tablet by mouth once daily , Discontinued Metoprolol Succinate ER 50 MG Tablet Extended Release 24 Hour TAKE 1/2 TABLET ORALLY ONCE A DAY 90 DAYS * Allergies: S ulfamethoxazole. Objective: * Vitals: N urse: dw, Pain: 0, Temp: 98, RR: 16, HR: 68, BP: 118/72, Ht: 69, Wt: 186, BMI:27.46. * Examination: G eneral Examination: General P leasant and Cooperative, NAD on RA, mild resting tremor. Heart: R egular Rate and Rhythm, no murmur, rubs or gallops. Lungs: L CTAB, No wheezes, crackles or rhonchi, Good air movement,. Assessment: * Assessment: 1. A trioventricular block, complete - I44.2 (Primary) 2 . H ypertension, essential - I10 3 . P arkinsons disease - G20 4 . N octuria - R35.1 Plan: * Treatment: 2. H ypertension, essential Notes: - BP well controlled, checks daily at home - Metoprolol discontinued due to hypotension and dizziness, now improved - Continue lisinopril 5mg 3. P arkinsons disease Notes: - PD vs Lewy Body Dementia - Follows with Dr. Navarrete at Neurology - Unable to obtain MRI due to pacemaker - CT head and CTA mostly unremarkable with general atrophy, most likely will still require MRI head - Takes 1-3 sinemet per day, patient feels better on once per day with less side effects - Speech and PT referral placed and plan to go to [facility], patient has been drooling and having oropharyngeal dysphagia. 4. N octuria Start Myrbetriq Tablet Extended Release 24 Hour, 50 MG, 1 tablet, Orally, Once a day, 90 days, 90 Tablet, Refills 1. Notes: - Gemtesa helping but copay very expensive, provided samples - Sent Rx for Mybetriq, may be more affordable - Has appointment with urology 01/05 * Follow Up: 2 Months * * Sign off status: Completed true * Provider: Nabeel Bahena MD Date: 0 12/30/2024 Generated for Thomas nelson/Isabella/Stevenitting on: 0 02/03/2025 10:52 AM EDT History and Physical Notes * HPI (History of Present Illness) Category Sub-Category Detail Notes Category Not es gen Briseyda Hector is a 79 yo here for follow up. He is accompanied by his . He recently saw Dr. Navarrete yesterday for his Lewy Body Dementia. He recommended Sinemet three times per day but he feels better when taking it once per day. Over the last few weeks he has been drooling more and having trouble swallowing. Feels like food is getting stuck in his throat. Dr. Navarrete put in referral for speech and physical therapy which they would like to do in [facility]. Symptoms of dizziness are improved since stopping the beta eder. checks BP daily and has been normal. He is doing well on Gemtesa, getting better sleep since he is not getting up to urinate as frequently. However it is very expensive and they ask about alternative option. Has appointment with urology on 01/05. Examination Category Sub-Category Detail Notes Category Not es General Examination Heart: Regular Rate and Rhythm, no murmur, rubs or gallops Lungs: LCTAB, No wheezes, c rackles or rhonchi, Good air movement, General Pleasant and Coopera tive, NAD on RA, mild resting tremor
--- OUTSIDE RECORDS SUMMARY | 2025-01-05 14:30 | XMS_ITS | Encounter Summary ---
Author Organization Healthcare Address [address] [place] [address] Care Team Providers Care Castings Trimmer Name Role Phone Jaron Bahena MD Primary Care Provider [phone] Keisha Blum [facility] Unavailable [phone] Reason for Visit * Reason Comments Nocturia Encounter Details Date Type Department Care Team (Late st Contact Info) Description 01/05/2025 2:30 PM EDT Consult [place] [facility] [address] [place] [address] Keisha Blum, BENCH HAND [address] [place] [address] Urinary urgency (Primary Dx); Urinary frequency Social History Tobacco Use Types Packs/Day Years Used Date Smoking Tobacco: Former Cigarettes Passive Smoke Exposure: Past Smokeless Tobacco: Never Tobacco Cessation:Counseling Given: Not Answered Alcohol Use Standard Drinks/Week Comments Yes 0 (1 standard drink = 0.6 oz pur e alcohol) PHQ-2 Answer Date Recorded Patient Health Questionnaire-2 Score 0 01/05/2025 PHQ-9 Answer Date Recorded Patient Health Questionnaire-9 Score 0 01/05/2025 Sex and Gender Information Value Date Recorded Sex Assigned at Not on file Legal Sex Male 7:37 PM EDT Gender Identity Not on file Sexual Orientation Not on file documented as of this encounter Last Filed Vital Signs Vital Sign Reading Time Taken Comments Blood Pressure 137/71 01/05/2025 2:24 PM EDT Pulse 60 01/05/2025 2:24 PM EDT Temperature 36.6 C (97.8 F) 01/05/2025 2:24 PM EDT Respiratory Rate 18 01/05/2025 2:24 PM EDT Oxygen Saturation 98% 01/05/2025 2:24 PM EDT Inhaled Oxygen Concentration - - Weight 82.4 kg (181 lb 10.5 oz) 01/05/2025 2:24 PM EDT Height 185.4 cm (6' 1 ) 01/05/2025 2:24 PM EDT Body Mass Index 23.97 01/05/2025 2:24 PM EDT documented in this encounter Functional Status * Over the past 2 weeks, how often have you been bothered by any of the following problems? Question Answer Date of Assessment Author Little interest or pleasure in doing things Not at all 01/05/2025 2:19 PM Tao Stevenson Feeling down, depressed, or hopeless Not at all 01/05/2025 2:19 PM Tao Stevenson Patient Health Questionnaire -2 Score 0 01/05/2025 2:19 PM MARITAT Tao Velázquez * Question Answer Date of Assessment Author Trouble falling or staying asleep, or sleeping too much Not at all 01/05/2025 2:19 PM Tao Stevenson Feeling tired or having merline le energy Not at all 01/05/2025 2:19 PM Tao Stevenson Poor appetite or overeating Not at all 01/05/2025 2: 19 PM Tao Stevenson Feeling bad about yourself - or that you are a failure or have let yourself or your family down Not at all 01/05/2025 2:19 PM EDT Tao Claros Trouble concentrating on thi ngs, such as reading the newspaper or watching television Not at all 01/05/2025 2:19 PM Tao Stevenson Moving or speaking so slowly that other people could have noticed? Or the opposite - being so fidgety or restless that you have been moving around a lot more than usual. Not at all 01/05/2025 2:19 PM Tao Stevenson Thoughts that you would be b queenie off or hurting yourself in some way Not at all 01/05/2025 2:19 PM Tao Stevenson Patient Health Questionnaire -9 Score 0 01/05/2025 2:19 PM EDT Tao Velázquez documented as of this encounter Miscellaneous Notes * Progress Notes - Keisha Blum, BENCH HAND - 01/05/2025 2:30 PM EDT [facility] Urology Clinic Note 01/05/25 CC: Urinary Frequency Referring Provider: Jeffery Navarrete MD HPI: Briseyda Hector is a 79 y.o. M with history of Parkinson's disease and HTN referred for urinary frequency. Reports prior to starting Gemtesa he experienced daytime urinary frequency Q 1 hr and nocturia x 4-5. He was trailed on tamsulosin without symptom improvement. Started on Gemtesa 75 mg and reports heno longer experiences urinary frequency. He has been given many samples of this and has about 40 days left. Out of pocket cost is $500 with insurance. Reports this is not affordable. He ws prescribed mybetriq which is $529 out of pocket again not affordable to the patient. Today PVR 1 mL, UA normal. Denies dysuria, GH, intermittency, urinary straining, hesitancy, or weak stream. He is happy with symptom improvement on Gemtesa but he needs a more cost effective medication. PMHx: Past Medical History[1] PSHx: Surgical History[2] FHx: Family History[3] SHx: Social History Socioeconomic History Marital status: Spouse name: Not on file Number of children: Not on file Years of education: Not on file Highest education level: Not on file Occupational History Not on file Tobacco Use Smoking status: Former Types: Cigarettes Passive exposure: Past Smokeless tobacco: Never Vaping Use Vaping status: Never Used Substance and Sexual Activity Alcohol use: Yes Drug use: Never Sexual activity: Not Currently Other Topics Concern Not on file Social History Narrative Not on file Social Drivers of Health Financial Resource Strain: Not on file Food Insecurity: Not on file Transportation Needs: Not on file Physical Activity: Not on file Stress: Not on file Social Connections: Unknown (03/12/2023) Received from [facility] Family and Community Support Help with Day-to-Day Activities: Not on file Lonely or Isolated: Not on file Intimate Partner Violence: Unknown (03/12/2023) Received from [facility] Abuse Screen Unsafe at Home or Work/School: Not on file Feels Threatened by Someone?: Not on file Does Anyone Keep You from Contacting Others or Doint Things Outside the Home?: Not on file Physical Sign of Abuse Present: Not on file Housing Stability: Unknown (03/12/2023) Received from [facility] Housing Stability Current Living Arrangements: Not on file Potentially Unsafe Housing Conditions: Not on file Physical Exam: Vitals: 01/05/25 1424 BP: 137/71 Pulse: 60 Resp: 18 Temp: 36.6 ??C (97.8 ??F) SpO2: 98% General: alert, active, in no acute distress Head: normocephalic Eyes: extraocular muscles intact Lungs: normal respiratory effort Abdomen: non-tender, non-distended Back: normal, CVA nontender bilaterally Musculoskeletal: BL UE demonstrate equal movement Skin: warm, no rashes Labs: Lab Results Component Value Date SPECGRAV 1.020 01/05/2025 PH 5.5 01/05/2025 GLUCOSEUA Negative 01/05/2025 BILIRUBINUR Negative 01/05/2025 KETONESU Trace (A) 01/05/2025 POCPROTUR Negative 01/05/2025 UROBILINPOC 1.0 01/05/2025 RBCUR Negative 01/05/2025 NITRITE Negative 01/05/2025 WBCUR Negative 01/05/2025 Urine, Volume Date Value Ref Range Status 01/05/2025 1 mL Final No results found for: PSA Imaging: No results found for this or any previous visit. Assessment: Briseyda Hector is a 79 y.o. M with history of Parkinson's disease and HTN referred for urinary frequency and managed well on Gemtesa. He is currently using samples and has 40 days left. [id number] cost for Gemtesa is $500 with insurance which is unaffordable to the patient. Mybetriq is $530. Due to the patient's age anticholinergics are not recommended due to increased risk with dementia. We will send a prescription for generic [facility] to [facility] to see if there has better coverage. The patient knows once he switches to Myrbetriq drawn to check his blood pressure oncea day and if he has a 10-15 point increase in his blood pressure to stop the medication. Plan: -Stop Gemtesa 75 mg once out of samples - Start Mybetriq 50 mg -Follow up 3 months PVR 45 minutes were spent today on review of patient's medical history, obtaining history, exam, reviewof any relevant results, and discussion of pathophysiology with appropriate plan with counseling given to patient. Keisha Blum APRN -Elizabeth [1] Past Medical History: Diagnosis Date Heart problem Hyperlipidemia Hypertension Pacemaker Parkinson's disease [2] Past Surgical History: Procedure Laterality Date EYE SURGERY INSERT / REPLACE / REMOVE PACEMAKER 2004 REFRACTIVE SURGERY [3] History reviewed. No pertinent family history. documented in this encounter Plan of Treatment Upcoming Encounters Date Type Department Care Team (Late st Contact Info) Description 04/07/2025 10:10 AM EST Office Visit [facility] Urology [address] [place] [address] Keisha Blum APRN [address] [place] [address] documented as of this encounter Procedures Procedure Name Priority Date/Time Associated Diagnosis Comments POC US BLADDER SCAN FOR VOLUME Routine 01/05/2025 2:33 PM EDT Urinary urgency Urinary frequency POCT URINALYSIS DIPSTICK Routine 01/05/2025 2:21 PM EDT documented in this encounter Results * POC US Bladder Volume (01/05/2025 2:33 PM EDT) Urine, Volume 1 mL IMAGING Anatomical Region Laterality Modality Other us Keisha Blum APRN IMG POINT OF CARE ULTRASOUN D Final Result * (ABNORMAL) POCT URINALYSIS DIPSTICK (01/05/2025 2:21 PM EDT) POCT Urine Color Yellow 01/05/2025 2:[address] [facility] POCT Urine Clarity Clear 01/05/2025 2:[address] [facility] POCT Urine Glucose Negative Negative mg/dL 01/05/2025 2:[address] [facility] POCT Urine Bilirubin Negative Negative mg/dL 01/05/2025 2:[address] [facility] POCT Urine Ketones Trace(A) Negative mg/dL 01/05/2025 2:[address] [facility] POCT Urine Specific [place] 1.020 1.005 - 1.030 01/05/2025 2:[address] [facility] POCT Urine Blood Negative Negative 01/05/2025 2:[address] [facility] POCT pH, Urine 5.5 5.0 - 8.0 01/05/2025 2:[address] [facility] POCT Protein, Urine Negative Negative mg/dL 01/05/2025 2:22 PM EDT [facility] POCT Urobilinogen, Urine 1.0 0.2, 1.0 EU/dL 01/05/2025 2:[address] [facility] POCT Nitrite, Urine Negative Negative 01/05/2025 2:[address] [facility] POCT Urine Leukocyte Esterase Negative Negative 01/05/2025 2:[address] [facility] Urine 01/05/2025 2:21 PM EDT 01/05/2025 2:22 PM EDT us Keisha M Noomen [facility] LAB POINT OF CARE T EST DOCKED DEVICE UNSOLICITED RESULTS Final Result Performing Organization Address City/State/[facility] Phone Number [facility] [address] [place], [place] documented in this encounter Visit Diagnoses Diagnosis Urinary urgency- Primary Urgency of urination Urinary frequency documented in this encounter Additional Health Concerns Assessment Noted Time PHQ-9 Depression Total Score: 0 01/06/20 25 2:19 PM EDT A fall risk assessment has been complete d for the patient 01/05/2025 2:18 PM EDT A Body Mass Index follow-up plan has been documented for the patient 01/05/2025 4:30 PM EDT documented as of this encounter Care Teams Castings Trimmer Relationship Specialty Start Date End Date Jaron Bahena MD [address] [place], [place] [address] PCP - General 10/15/20 Keisha Blum APRN [address] [place] [address] Nurse Practitioner Urology 01/05/25 documented as of this encounter
--- OUTSIDE RECORDS SUMMARY | 2025-01-14 04:55 | XMS_ITS ---
Author Organization [facility] Address [address] [facility] [address] [facility] [address] [place] [address] Care Team Providers Care Diesel Engine Ii Pipe Fitter Name Role Phone Jaron Bahena Primary Care Provider [phone] REASON FOR VISIT MBS Order Encounters Encounter Location Date Provider Diagnosis [facility] [address] [facility] [address] [place] [address] 01/14/2025 Jaron Bahena Parkinson's disease without dyskinesia, unspecified whether manifestations fluctuate G20.A1 and Dysphagia R13.10 Assessments Encounter Date Diagnosis (ICD Code) Assessment Notes Treatment Notes Treatment Clinical Notes Section Notes 01/14/2025 Parkinson's disease without dyskinesia, unspecified whether manifestations fluctuate (ICD-10 - G20.A1) 01/14/2025 Dysphagia (ICD-10 - R13.10) Plan Of Treatment Pending Test Test Name Order Date MODIFIED BARIUM SWALLOW 01/14/2025 Next Appt Details Provider Name:Jaron Bahena, 02/24/2025 09:45:00 AM, [address], [address], Progress Notes * Briseyda BRITT JR BDOB: [birth year] (79 yo M)Acc No.[id number]:01/14/2025 Patient: S Briseyda JAMA JR :1945 A ge:79 Y S ex:Male Address:[address] [place] [id number] Subjective: * Chief Complaints: * M BS Order * Medical History: * Surgical History: * Hospitalization/Major Diagno stic Procedure: * Medications: Objective: * Vitals: * Physical Examination: Assessment: * Assessment: 1. P arkinson's disease without dyskinesia, unspecified whether manifestations fluctuate - G20.A1 2 . D ysphagia - R13.10 Plan: * Treatment: 2.?Dysphagia?Imaging: MODIFIED BARIUM SWALLOW* * Procedure Codes: * true * Date: Generated for Thomas nelson/Isabella/eTransmitting on: 0 02/03/2025 10:54 AM EDT
--- NOTE | 2025-02-03 10:16 | FL_ITS ---
FINAL REPORT CLINICAL HISTORY: PARKISON/DYSPHAGIA 4.38 fluoro time 390.34 dap FINDINGS: MODIFIED BARIUM SWALLOW History: Dysphagia. FINDINGS: Fluoroscopy was provided for the speech pathologist to evaluate the swallowing mechanism. The patient was given several different consistencies of barium while the swallow was visualized fluoroscopically. The report of the speech pathologist should be consulted prior to making dietary decisions. Fluoro time: 4 minutes 38 seconds DAP: 390.34 uGy.m2 IMPRESSION: Modified barium swallow under fluoroscopic guidance. Please see the report of the speech pathologist for more detail. Reviewed, Interpreted and Dictated by Larisa Claros MD Transcribed by SHARMAINE Medina Authenticated and [facility]
--- OUTSIDE RECORDS SUMMARY | 2025-02-03 10:53 | XMS_ITS | Encounter Summary ---
Author Organization [facility] Address [address] [place] [id number] Care Team Providers Care Affiliate Marketing Coordinator Name Role Phone Jaron Bahena MD Primary Care Provider [phone] Encounter Details Date Type Department Care Team (Late st Contact Info) Description 09/22/2014 External CPT II TOURIST GUIDE - [facility] Social History Tobacco Use [...] Office Visit [facility] [address] [facility] [address] [place] [address] Mark Herrmann MD [address] [facility] [address] [place] [address] Scheduled Procedures Name Priority Associated Diagnoses Date/Ti me PACEMAKER BATTERY CHANGE- DC AV block, Mobitz 2 documented as of this encounter Visit Diagnoses Not on filedocumented in this encounter Care Teams Affiliate Marketing Coordinator Relationship Specialty Start Date End Date Jaron Bahena MD [address] [facility] [address] [place] [address] PCP - General 05/05/15 documented as of this encounter
--- OUTSIDE RECORDS SUMMARY | 2025-02-03 10:53 | XMS_ITS | Encounter Summary ---
Author Organization [facility] Address [address] [place] [id number] Care Team Providers Care Lumber Hacker Name Role Phone Jaron Bahena MD Primary Care Provider Encounter Details Date Type Department Care Team (Late st Contact Info) Description 06/19/2014 External CPT II CORRUGATED BOX MACHINE OPERATOR - [facility] Social History Tobacco Use [...] Description 03/11/2026 11:45 AM EDT Office Visit [facility] [address] [facility] [place] [address] Mark Herrmann MD [address] [facility] [address] [place] [address] Scheduled Procedures Name Priority Associated Diagnoses Date/Ti me PACEMAKER BATTERY CHANGE- DC AV block, Mobitz 2 documented as of this encounter Visit Diagnoses Not on filedocumented in this encounter Care Teams Lumber Hacker Relationship Specialty Start Date End Date Jaron Bahena MD [address] [place] [facility] [address] [place] [address] PCP - General 05/05/15 documented as of this encounter
--- OUTSIDE RECORDS SUMMARY | 2025-02-03 10:53 | XMS_ITS | Referral Summary ---
Author Organization [facility] ([place], [place], [place], [place]) Address [address] [place] [address] Care Team Providers Care Loan Examiner Name Role Phone Jaron Bahena MD Primary Care Provider [phone] Allergies Active Allergy Reactions Criticality Noted Date [...] 08/18/2024 10:13 AM EDT Plan of Treatment Not on file Insurance [facility] Care Teams Loan Examiner Relationship Specialty Start Date End Date Jaron Bahena MD [address] [place] [address] PCP - General Adolescent Medicine 04/16/24
--- OUTSIDE RECORDS SUMMARY | 2025-02-03 10:53 | XMS_ITS | Clinical Summary ---
Author Organization [employer] ([place], [place], [place], [place]) Address [address] [place] [address] Care Team Providers Care Shipping And Receiving Assistant Name Role Phone Jaron Bahena MD Primary Care Provider [phone] Allergies Active Allergy Reactions Criticality Noted Date [...] 08/18/2024 10:13 AM EDT Plan of Treatment Health Maintenance Due Date Last Done Comments Depression Screening (12+) 1957 Hepatitis C Screening 1965 Pneumococcal 50+ years (2 of 2 - PPSV23) 09/11/2018 09/11/2017 Respiratory Syncytial Virus (RSV) Adult or (1 - 1-dose 75+ series) 2022 COVID-19 VACCINE ( season) 2024 03/31/2021, 08/05/2020, 07/08/2020 Falls Risk Screening 06/04/2024 Medicare Initial AWV [id number] 06/04/2024 Influenza Vaccine (#1) 2025 Tobacco Cessation Counseling and Screening (12+) 08/18/2025 08/18/2024 DTAP/TDAP/TD VACCINES (2 - T d or Tdap) 02/09/2028 02/08/2018 Shingles Vaccine (Zoster) Completed 04/10/2023, 08/2022 Insurance [facility] Care Teams Shipping And Receiving Assistant Relationship Specialty Start Date End Date Jaron Bahena MD [address] [place] [address] PCP - General Adolescent Medicine 04/16/24
--- OUTSIDE RECORDS SUMMARY | 2025-02-03 10:53 | XMS_ITS | Encounter Summary ---
Author Organization [facility] Address [address] [place] [id number] Care Team Providers Care Glass Cleaner Name Role Phone Jaron Bahena MD Primary Care Provider [phone] Encounter Details Date Type Department Care Team (Late st Contact Info) Description 10/10/2016 External CPT II MEDICAL OFFICE WORKER - [facility] Social History Tobacco Use [...] Description 03/11/2026 11:45 AM EDT Office Visit [facility] [address] [facility] [facility] [place] [address] Mark Herrmann MD [address] [facility] [address] [place] [address] Scheduled Procedures Name Priority Associated Diagnoses Date/Ti me PACEMAKER BATTERY CHANGE- DC AV block, Mobitz 2 documented as of this encounter Visit Diagnoses Not on filedocumented in this encounter Care Teams Glass Cleaner Relationship Specialty Start Date End Date Jaron Bahena MD [address] [facility] [address] [place] [address] PCP - General 05/05/15 documented as of this encounter
--- OUTSIDE RECORDS SUMMARY | 2025-02-03 10:53 | XMS_ITS | Encounter Summary ---
Author Organization [facility] Address [address] [place] [id number] Care Team Providers Care Textile Knitter Name Role Phone Jaron Bahena MD Primary Care Provider Encounter Details Date Type Department Care Team (Late st Contact Info) Description 01/19/2015 External CPT II ALTERATIONS EXPERT - [facility] Social History Tobacco Use [...] 11:45 AM EDT Office Visit [facility] [address] [facility] [place] [address] Mark Herrmann MD [address] [facility] [address] [place] [address] Scheduled Procedures Name Priority Associated Diagnoses Date/Ti me PACEMAKER BATTERY CHANGE- DC AV block, Mobitz 2 documented as of this encounter Visit Diagnoses Not on filedocumented in this encounter Care Teams Textile Knitter Relationship Specialty Start Date End Date Jaron Bahena MD [address] [facility] [address] [place] [address] PCP - General 05/05/15 documented as of this encounter
--- OUTSIDE RECORDS SUMMARY | 2025-02-03 10:53 | XMS_ITS | Encounter Summary ---
Author Organization [facility] Address [address] [place] [id number] Care Team Providers Care Auto Job Estimator Name Role Phone Jaron Bahena MD Primary Care Provider [phone] Encounter Details Date Type Department Care Team (Late st Contact Info) Description 06/02/2014 External CPT II INDUSTRIAL GAS SERVICER HELPER - [facility] Social History Tobacco Use [...] Description 03/11/2026 11:45 AM EDT Office Visit [facility]IOLOG[facility] [address] [facility] [place] [address] Mark Herrmann MD 1720 [facility] [address] [place] [address] Scheduled Procedures Name Priority Associated Diagnoses Date/Ti me PACEMAKER BATTERY CHANGE- DC AV block, Mobitz 2 documented as of this encounter Visit Diagnoses Not on filedocumented in this encounter Care Teams Auto Job Estimator Relationship Specialty Start Date End Date Jaron Bahena MD [address] [facility] [address] [place] [address] PCP - General 05/05/15 documented as of this encounter
--- OUTSIDE RECORDS SUMMARY | 2025-02-03 10:53 | XMS_ITS | Encounter Summary ---
Author Organization [facility] Address [address] [place] [phone] Care Team Providers Care Store Loss Prevention Manager Name Role Phone Jaron Bahena MD Primary Care Provider Encounter Details Date Type Department Care Team (Late st Contact Info) Description 07/21/2014 External CPT II WAITER/WAITRESS TOURIST CLASS - [facility] Social History Tobacco Use [...] Description 03/11/2026 11:45 AM EDT Office Visit [facility] [address] [facility] [place] [address] Mark Herrmann MD [address] [facility] [address] [place] [address] Scheduled Procedures Name Priority Associated Diagnoses Date/Ti me PACEMAKER BATTERY CHANGE- DC AV block, Mobitz 2 documented as of this encounter Visit Diagnoses Not on filedocumented in this encounter Care Teams Store Loss Prevention Manager Relationship Specialty Start Date End Date Jaron Bahena MD [address] [place] [facility] [address] [place] [address] PCP - General 05/05/15 documented as of this encounter
--- OUTSIDE RECORDS SUMMARY | 2025-02-03 10:53 | XMS_ITS | Encounter Summary ---
Author Organization [facility] Address [address] [place] [address] Care Team Providers Care Broker Associate Name Role Phone Jaron Bahena MD Primary Care Provider Encounter Details Date Type Department Care Team (Late st Contact Info) Description 07/08/2015 External CPT II LICENSED SURVEYOR - [facility] Social History Tobacco Use [...] Description 03/11/2026 11:45 AM EDT Office Visit [facility] [address] [place] [address] Mark Herrmann MD [address] [facility] [address] [place] [address] Scheduled Procedures Name Priority Associated Diagnoses Date/Ti me PACEMAKER BATTERY CHANGE- DC AV block, Mobitz 2 documented as of this encounter Visit Diagnoses Not on filedocumented in this encounter Care Teams Broker Associate Relationship Specialty Start Date End Date Jaron Bahena MD [address] [place] [facility] [address] [place] [address] PCP - General 05/05/15 documented as of this encounter
--- OUTSIDE RECORDS SUMMARY | 2025-02-03 10:53 | XMS_ITS | Encounter Summary ---
Author Organization [facility] Address [address] [place] [address] Care Team Providers Care Financial Internship Name Role Phone Jaron Bahena MD Primary Care Provider Encounter Details Date Type Department Care Team (Late st Contact Info) Description 07/01/2015 External CPT II MANAGER OF APPLICATIONS DEVELOPMENT - [facility] Social History Tobacco Use [...] Description 03/11/2026 11:45 AM EDT Office Visit [facility] C[facility] [address] [place] [address] Mark Herrmann MD [address] [facility] [address] [place] [address] Scheduled Procedures Name Priority Associated Diagnoses Date/Ti me PACEMAKER BATTERY CHANGE- DC AV block, Mobitz 2 documented as of this encounter Visit Diagnoses Not on filedocumented in this encounter Care Teams Financial Internship Relationship Specialty Start Date End Date Jaron Bahena MD [address] [place] [facility] [address] [place] [address] PCP - General 05/05/15 documented as of this encounter
--- OUTSIDE RECORDS SUMMARY | 2025-02-03 10:53 | XMS_ITS | Encounter Summary ---
Author Organization [facility] Address [address] [place] [phone] Care Team Providers Care Warpman Name Role Phone Jaron Bahena MD Primary Care Provider [phone] Encounter Details Date Type Department Care Team (Late st Contact Info) Description 03/06/2017 External CPT II FARM ASSISTANT - [facility] Social History Tobacco Use [...] Description 03/11/2026 11:45 AM EDT Office Visit [facility] [address] [facility] [place] [address] Mark Herrmann MD [address] [facility] [address] [place] [address] Scheduled Procedures Name Priority Associated Diagnoses Date/Ti me PACEMAKER BATTERY CHANGE- DC AV block, Mobitz 2 documented as of this encounter Visit Diagnoses Not on filedocumented in this encounter Care Teams Warpman Relationship Specialty Start Date End Date Jaron Bahena MD [address] [facility] [address] [place] [address] PCP - General 05/05/15 documented as of this encounter
--- OUTSIDE RECORDS SUMMARY | 2025-02-03 10:54 | XMS_ITS | Encounter Summary ---
Author Organization [facility] Address [address] [place] [phone] Care Team Providers Care Attic Fans Mechanic Name Role Phone Jaron Bahena MD Primary Care Provider [phone] Encounter Details Date Type Department Care Team (Late st Contact Info) Description 06/12/2017 External CPT II AIRCRAFT LANDING GEAR INSPECTOR - [facility] Social History Tobacco Use [...] Visit [facility] [address] [facility] [place] [address] Mark Herrmann MD [address]20 [facility] [address] [place] [address] Scheduled Procedures Name Priority Associated Diagnoses Date/Ti me PACEMAKER BATTERY CHANGE- DC AV block, Mobitz 2 documented as of this encounter Visit Diagnoses Not on filedocumented in this encounter Care Teams Attic Fans Mechanic Relationship Specialty Start Date End Date Jaron Bahena MD 12[address] [facility] [address] [place] [address] PCP - General 05/05/15 documented as of this encounter
--- OUTSIDE RECORDS SUMMARY | 2025-02-03 10:54 | XMS_ITS | Encounter Summary ---
Author Organization [facility] Address [address] [place] [id number] Care Team Providers Care Hand Carver Name Role Phone Jaron Bahena MD Primary Care Provider [phone] Encounter Details Date Type Department Care Team (Late st Contact Info) Description 09/05/2018 External CPT II BODY STYLIST - [facility] Social History Tobacco Use [...] Visit [facility] [address] [facility] [place] [address] Mark Herrmann MD [address] [facility] [address] [place] [address] Scheduled Procedures Name Priority Associated Diagnoses Date/Ti me PACEMAKER BATTERY CHANGE- DC AV block, Mobitz 2 documented as of this encounter Visit Diagnoses Not on filedocumented in this encounter Care Teams Hand Carver Relationship Specialty Start Date End Date Jaron Bahena MD 1210 [facility] [address] [place] [address] PCP - General 05/05/15 documented as of this encounter
--- OUTSIDE RECORDS SUMMARY | 2025-02-03 10:54 | XMS_ITS | Clinical Summary ---
Author Organization [facility] Address [address] [place] [id number] Care Team Providers Care Realtime Reporter Name Role Phone Jaron Bahena MD Primary Care Provider [phone] Allergies Active Allergy Reactions Criticality Noted Date Comments Sulfamethoxazole 11/30/2015 Medications aspirin 81 MG EC tablet Take 1 tablet by mouth Daily. Active allopurinol (ZYLOPRIM) 100 MG tablet Take 1 tablet by mouth Daily. 11/03/2015 Active pantoprazole (PROTONIX) 40 MG EC tablet Take 1 tablet by mouth Daily. 10/12/2015 Active metoprolol succinate XL (TOPROL-XL) 50 MG 24 hr tablet Take 1 tablet (50 mg total) by mouth daily 90 tablet 3 12/02/2015 Active atorvastatin (LIPITOR) 40 MG tablet Take 1 tablet by mouth Daily. Active levothyroxine (SYNTHROID, LEVOTHROID) 50 MCG tablet Take 1 tablet by mouth Daily. 02/25/2019 Active cyanocobalamin (VITAMIN B-12) 2500 MCG tablet tablet Take 500 mcg by mouth Daily. Active levocetirizine (XYZAL) 5 MG tablet Take 1 tablet by mouth Every Evening. Active lisinopril (PRINIVIL,ZESTR IL) 5 MG tablet Take 1 tablet by mouth Daily. 09/13/2024 Active amLODIPine (NORVASC) 5 MG tablet Take 1 tablet by mouth Daily. Active multivitamins-m inerals (PRESERVISION AREDS 2) capsule capsule Take 1 capsule by mouth Daily. Active vitamin D3 125 MCG (5000 UT) capsule capsule Take 1 capsule by mouth Daily. Active Vibegron 75 MG tablet Take 1 tablet by mouth Daily. 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 Mixed hyperlipidemia 05/15/2019 [...] Description 11/26/2024 10:15 AM EDT Office Visit [facility] C[facility]IOLOG[facility] [address] [place] [address] Mark Herrmann MD AV block, complete (Primary Dx); Primary hypertension; Mixed hyperlipidemia 11/26/2024 Travel 11/25/2024 Telephone [facility] [address] [facility] [address] [place] [address] Mark Herrmann MD Medication Reconciliation 11/25/2024 Telephone [facility] [address] [facility] [address] [place] [address] Mark Herrmann MD 11/25/2024 Telephone [facility] [address] [facility] [address] [place] [address] Mark Herrmann MD Advice Only; Appointment from [...] Description 03/11/2026 11:45 AM EDT Office Visit [facility] C[facility]IOLOG[facility] [address] [place] [address] Mark Herrmann MD [address] [facility] [address] [place] [address] Scheduled Procedures Name Priority Associated [...] Additional history exists LIPID PANEL 03/14/2023 03/14/2022, 0301/2022, 02/08/2021, Additional history exists COLONOSCOPY 05/21/2023 05/21/2013 COLORECTAL CANCER SCREENING 05/21/2023 COVID-19 Vaccine (2023-2 5 season) 2024 03/31/2021, 08/05/2020, 07/08/2020 INFLUENZA VACCINE 03/04/2025 04/08/2024, , 03/14/2022, Additional history exists TDAP/TD VACCINES (3 - Td or Tdap) 02/09/2028 018, 04/26/2011 Pneumococcal Vaccine 50+ Completed 023, 09/11/2017, 05/07/2013 ZOSTER VACCINE Completed 04/10/2023, 01/04/2023 Medical Devices Implanted Type Area Web Coordinator Device Identifier Shelf Expiration Date Model / Serial / Lot Env Pm Aigisrx Antibac Resorb 2.9x3.3in Lg - [id number] - [id number] Implanted:Qty: 1 on 10/19/2020 by Gavino Rhodes DO at [facility] Implant [employer] 07/02/2021 [id number] / [id number] / [id number] Pacemaker-2009 Implanted:11/20 (Quantity not on file) Pacemaker [employer] Gen Pm Chantal Xt Deja Weaver - [id number] - [id number] Implanted:Qty: 1 on 10/19/2020 by Gavino Rhodes DO at [facility] Pacemaker [employer] 03/01/2022 [id number] / [id number] / Procedures Procedure Name Priority Date/Time Associated Diagnosis Comments REMOTE DEVICE CHECK 01/13/2025 9 :06 PM EDT SCANNED EKG 11/26/2024 from Last 3 Months Results * Remote Device Check (01/13/2025 9:06 PM EDT) Date Time Interrogation Session [id number] [facility] Type Interrogation Session Remote [facility] Implantable Pulse Generator Web Coordinator Medtronic [facility] Implantable Pulse Generator Type IPG [facility] Implantable Pulse Generator Model Conconully XT DR MRI [id number] [facility] Implantable Pulse Generator Serial Number [id number] [facility] Implantable Pulse Generator Implant Date [id number] [facility] Battery Remaining Longevity 73.0 mo [facility] [employer] Battery Voltage 2.990 [facility] Battery DYNO TECHNICIAN Trigger 2.625 [facility] [employer] Battery Status OK [facility] Christopher Statistic RA Percent Paced 61.25 [facility] Christopher Statistic RV Percent Paced 99.66 [facility] Atrial Tachy Statistic AT/AF [place] Percent 0.10 [facility] Here@ Networks RADIOLOGY Lead Channel RA Sensing Intrinsic Amplitude 1.375 [facility] [employer]@ [employer] RADIOLOGY Lead Channel Setting RA Sensing Sensitivity 1.20 [facility] Here@ [employer] RADIOLOGY Lead Channel RA Impedance Value 342 [facility] Here@ [employer] RADIOLOGY Lead Channel RA Pacing Threshold Amplitude 1.125 [facility] Here@ [employer] RADIOLOGY Lead Channel RA Pacing Threshold Pulse Width 0.4 [facility] Here@ [employer] RADIOLOGY Lead Channel RA Measurements Date and Time [id number] [facility] Here@ [employer] RADIOLOGY Lead Channel Setting RA Pacing Amplitude 2.250 [facility] Here@ [employer] RADIOLOGY Lead Channel Setting RA Pacing Pulse Width 0.4 [facility] Here@ [employer] RADIOLOGY Lead Channel RV Sensing Intrinsic Amplitude 7.500 [facility] Here@ [employer] RADIOLOGY Lead Channel Setting RV Sensing Sensitivity 1.20 [facility] Here@ [employer] RADIOLOGY Lead Channel RV Impedance Value 418 [facility] Here@ [employer] RADIOLOGY Lead Channel RV Pacing Threshold Amplitude 0.875 [facility] Here@ [employer] RADIOLOGY Lead Channel RV Pacing Threshold Pulse Width 0.4 [facility] Here@ [employer] RADIOLOGY Lead Channel RV Measurements Date and Time [id number] [facility] Here@ [employer] RADIOLOGY Lead Channel Setting RV Pacing Amplitude 2.250 [facility] Here@ [employer] RADIOLOGY Lead Channel Setting RV Pacing Pulse Width 0.4 [facility] Christopher Setting Mode (NBG Code) DDDR [facility] Christopher Setting Lower Rate Limit 60 [facility] Christopher Setting AT Mode Switch Rate 171 [facility] Christopher Setting Maximum Tracking Rate 130 [facility] Christopher Setting Maximum Sensor Rate 130 [facility] Christopher Setting PAV Delay 180 [facility] Christopher Setting REHANA Delay 150 [facility] Lead Channel Setting RA Sensing Polarity Bipolar [facility] Lead Channel Setting RV Sensing Polarity Bipolar [facility] Lead Channel Setting RA Pacing Polarity Bipolar [facility] Lead Channel Setting RV Pacing Polarity Bipolar [facility] Lead Channel RA Pacing Threshold Polarity Bipolar [facility] Lead Channel RV Pacing Threshold Polarity Bipolar [facility] Zone Setting Type Category AT/AF [facility] IDC RATE 1 171 [facility] THERAPIES All Rx On [facility] Zone Setting Status Monitor [facility] Zone ID 2 [facility] Zone Setting Type Category VT [facility] IDC RATE 1 150 [facility] Zone Setting Status ENABLED [facility] Zone ID 6 [facility] 01/13/2025 9:06 PM EDT Mark Herrmann MD CV IMPLANTABLE CARDIAC DEVICE Final Result [facility] * ECG Scan (11/26/2024) Mark Herrmann MD ECG ORDERABLES Final Result from Last 3 Months Insurance MEDICARE ADVANTAGE HMO Advance Directives Documents on File Type Date Recorded Patient Driver Service Technician Expl anation LIVING WILL - SCAN 10/19/2020 11:49 AM Care Teams Realtime Reporter Relationship Specialty Start Date End Date Jaron Bahena MD [address] [place] [address] [facility] [address] [place] [id number] PCP - General 05/05/15
--- OUTSIDE RECORDS SUMMARY | 2025-02-03 10:54 | XMS_ITS | Encounter Summary ---
Author Organization [facility] Address [address] [place] [phone] Care Team Providers Care Logging Engineer Name Role Phone Jaron Bahena MD Primary Care Provider [phone] Encounter Details Date Type Department Care Team (Late st Contact Info) Description 11/26/2018 External CPT II HOST AND HOSTESS - [facility] Social History Tobacco Use [...] Description 03/11/2026 11:45 AM EDT Office Visit [facility] C[facility]IOLOG[facility] [address] [facility] [place] [address] Mark Herrmann MD [address] [facility] [address] [place] [address] Scheduled Procedures Name Priority Associated Diagnoses Date/Ti me PACEMAKER BATTERY CHANGE- DC AV block, Mobitz 2 documented as of this encounter Visit Diagnoses Not on filedocumented in this encounter Care Teams Logging Engineer Relationship Specialty Start Date End Date Jaron Bahena MD [address] [facility] [address] [place] [address] PCP - General 05/05/15 documented as of this encounter
--- OUTSIDE RECORDS SUMMARY | 2025-02-03 10:54 | XMS_ITS | Encounter Summary ---
Author Organization [facility] Address [address] [place] [address] Care Team Providers Care Foster Care Social Worker Name Role Phone Jaron Bahena MD Primary Care Provider Encounter Details Date Type Department Care Team (Late st Contact Info) Description 11/16/2015 External CPT II PENSION MANAGER - [facility] Social History Tobacco [...] Visit [facility] CARDIOLOGY [address] [place] [address] Mark Herrmann MD [address]20 [facility] [address] [place] [address] Scheduled Procedures Name Priority Associated Diagnoses Date/Ti me PACEMAKER BATTERY CHANGE- DC AV block, Mobitz 2 documented as of this encounter Visit Diagnoses Not on filedocumented in this encounter Care Teams Foster Care Social Worker Relationship Specialty Start Date End Date Jaron Bahena MD [address] [place] [facility] [address] [place] [address] PCP - General 05/05/15 documented as of this encounter
--- OUTSIDE RECORDS SUMMARY | 2025-02-03 10:54 | XMS_ITS | Encounter Summary ---
Author Organization [facility] Address [address] [place] [phone] Care Team Providers Care Environmental Service Aide Name Role Phone Jaron Bahena MD Primary Care Provider [phone] Encounter Details Date Type Department Care Team (Late st Contact Info) Description 12/16/2019 External CPT II UTILITY AGENT - [facility] Social History Tobacco Use [...] Description 03/11/2026 11:45 AM EDT Office Visit [facility] [address] [facility] [place] [place] [address] Mark Herrmann MD [facility] [address] [place] [address] Scheduled Procedures Name Priority Associated Diagnoses Date/Ti me PACEMAKER BATTERY CHANGE- DC AV block, Mobitz 2 documented as of this encounter Visit Diagnoses Not on filedocumented in this encounter Care Teams Environmental Service Aide Relationship Specialty Start Date End Date Jaron Bahena MD [address] [place] [facility] [address] [place] [address] PCP - General 05/05/15 documented as of this encounter
--- OUTSIDE RECORDS SUMMARY | 2025-02-03 10:54 | XMS_ITS | Encounter Summary ---
Author Organization [facility] Address [address] [place] [address] Care Team Providers Care Compensation Expert Name Role Phone Jaron Bahena MD Primary Care Provider Encounter Details Date Type Department Care Team (Late st Contact Info) Description 03/14/2016 External CPT II MEDICAL EQUIPMENT REPAIR TECHNICIAN - [facility] Social History Tobacco [...] Description 03/11/2026 11:45 AM EDT Office Visit [facility] [address] [facility] [place] [address] Mark Herrmann MD 1720 [facility] [address] [place] [address] Scheduled Procedures Name Priority Associated Diagnoses Date/Ti me PACEMAKER BATTERY CHANGE- DC AV block, Mobitz 2 documented as of this encounter Visit Diagnoses Not on filedocumented in this encounter Care Teams Compensation Expert Relationship Specialty Start Date End Date Jaron Bahena MD [address] [place] [facility] [address] [place] [address] PCP - General 05/05/15 documented as of this encounter
--- OUTSIDE RECORDS SUMMARY | 2025-02-03 10:54 | XMS_ITS | Encounter Summary ---
Author Organization [facility] Address [facility] [place] [address] Care Team Providers Care Sales Support Manager Name Role Phone Jaron Bahena MD Primary Care Provider [phone] Keisha Blum OBGYN HOSPITALIST PHYSICIAN Unavailable [phone] Reason for Referral * Consultation (Routine) - Closed Specialty Diagnoses / Procedures Referred By Contac t Referred To Contact Neurology Diagnoses Parkinson's disease without dyskinesia, with fluctuations (CMS/HCC) Jaron Bahena MD [address] [place] [address] Phone: tel: fax: Referral ID Status Reason Start Date Expiration Date V isits Requested Visits Authorized [id number] Closed Specialty Services Required 01/22/2024 07/23/2025 1 1 Encounter Details Date Type Department Care Team (Latest Contact Info) Description 01/22/2024 Community [facility] [address] [place] [address] Jaron Bahena MD [address] [place] [address] Parkinson's disease without dyskinesia, with fluctuations (CMS/HCC) [...] Office Visit [facility] [address] [place] [address] Keisha Blum, CLEMENT [address] [facility] [address] [place] [address] Scheduled Referrals Name Type Priority Associated Diagnoses Orde r Schedule Ambulatory referral to Neurology Outpatient Referral Routine Parkinson's disease without dyskinesia, with fluctuations (CMS/HCC) Expected: 01/22/2024 (Approximate), Expires: 07/24/2025 documented as of this encounter Visit Diagnoses Diagnosis Parkinson's disease without dyskinesia, with fluctuations (CMS/HCC)- Primary documented in this encounter Care Teams Sales Support Manager Relationship Specialty Start Date End Date Jaron Bahena MD [address] [place] [address] PCP - General 10/15/20 Keisha Blum, CLEMENT [address] [facility] [place] [id number] Nurse Practitioner Urology 01/05/25 documented as of this encounter
--- OUTSIDE RECORDS SUMMARY | 2025-02-03 10:54 | XMS_ITS | Encounter Summary ---
Author Organization [facility] Address [address] [place] [address] Care Team Providers Care Farmworker Grain Name Role Phone Jaron Bahena MD Primary Care Provider Encounter Details Date Type Department Care Team (Late st Contact Info) Description 07/06/2016 External CPT II RING [facility] - [employer] [facility] Social History Tobacco Use [...] Description 03/11/2026 11:45 AM EDT Office Visit [facility] [address] [place] [address] Mark Herrmann MD [address] [facility] [address] [place] [address] Scheduled Procedures Name Priority Associated Diagnoses Date/Ti me PACEMAKER BATTERY CHANGE- DC AV block, Mobitz 2 documented as of this encounter Visit Diagnoses Not on filedocumented in this encounter Care Teams Farmworker Grain Relationship Specialty Start Date End Date Jaron Bahena MD [address] [facility] [address] [place] [address] PCP - General 05/05/15 documented as of this encounter
--- OUTSIDE RECORDS SUMMARY | 2025-02-03 10:54 | XMS_ITS | Encounter Summary ---
Author Organization Healthcare Address [address] [place] [address] Care Team Providers Care Cupola Charger Insulation Name Role Phone Jaron Bahena MD Primary Care Provider [phone] Encounter Details Date Type Department Care Team (Late Contact Info) Description 11/12/[address] [facility] [address] [place] [address] Jeffery Navarrete MD [address] [place] [address] Social History Tobacco Use Types Packs/Day Years Used Date Smoking Tobacco: Never Assessed Sex and Gender Information Value Date Recorded Sex Assigned at Not on file Legal Sex Male 7:37 PM EDT Gender Identity Not on file Sexual Orientation Not on file documented as of this encounter Plan of Treatment Upcoming Encounters Date Type Department Care Team (Late Contact Info) Description 04/07/2025 10:10 AM EST Office [facility] [address] [place] [address] Noomen, Keisha M, MECHANICAL CAD DRAFTER [address] [place] [address] documented as of this encounter Visit Diagnoses Not on filedocumented in this encounter Care Teams Cupola Charger Insulation Relationship Specialty Start Date End Date Jaron Bahena MD [address] [place] [address] PCP - General 10/15/20 documented as of this encounter
--- OUTSIDE RECORDS SUMMARY | 2025-02-03 10:55 | XMS_ITS | Encounter Summary ---
Author Organization Healthcare Address [address] [place] [address] Care Team Providers Care Sprayer Machine Name Role Phone Jaron Bahena MD Primary Care Provider [phone] Keisha Blum COMB WINDER Unavailable [phone] Encounter Details Date Type Department Care Team (Late st Contact Info) Description 01/05/2025 Telephone [facility] [address] [place] [address] David Thurston, PharmD Social History Tobacco Use Types Packs/Day Years Used Date Smoking Tobacco: Former Cigarettes Passive Smoke Exposure: Past Smokeless Tobacco: Never Alcohol Use Standard Drinks/Week [...] on file documented as of this encounter Functional Status * Over the past 2 weeks, how often have you been bothered by any of the following problems? Question Answer Date of Assessment Author Little interest or pleasure in doing things Not at all 01/05/2025 2:19 PM MARITAT Tao Velázquez Feeling down, depressed, or hopeless Not at all 01/05/2025 2:19 PM MARITAT Tao Velázquez Patient Health Questionnaire -2 Score 0 01/05/2025 2:19 PM EDT Tao Velázquez * Question Answer Date of Assessment Author Trouble falling or staying asleep, or sleeping too much Not at all 01/05/2025 2:19 PM EDT Tao Velázquez Feeling tired or having merline le energy Not at all 01/05/2025 2:19 PM EDT Tao Velázquez Poor appetite or overeating Not at all 01/05/2025 2: 19 PM EDT Tao Velázquez Feeling bad about yourself - or that you are a failure or have let yourself or your family down Not at all 01/05/2025 2:19 PM EDT Tao Claros Trouble concentrating on thi ngs, such as reading the newspaper or watching television Not at all 01/05/2025 2:19 PM EDT Yang Velázquez Moving or speaking so slowly that other people could have noticed? Or the opposite - being so fidgety or restless that you have been moving around a lot more than usual. Not at all 01/05/2025 2:19 PM EDT Tao Velázquez Thoughts that you would be better off or hurting yourself in some way Not at all 01/05/2025 2:19 PM EDT Yang Velázquez Patient Health Questionnaire -9 Score 0 01/05/2025 2:19 PM EDT Tao Velázquez documented as of this encounter Miscellaneous Notes * Telephone Encounter - Romeo Zazueta, PharmD - 01/06/2025 9:25 AM EDT acc documented in this encounter Plan of Treatment Upcoming Encounters Date Type Department Care Team (Late st Contact Info) Description 04/07/2025 10:10 AM EST Office Visit [facility] [address] [place] [address] Keisha Blum, COMB WINDER [address] [place] [address] documented as of this encounter Visit Diagnoses Not on filedocumented in this encounter Additional Health Concerns Assessment Noted Time PHQ-9 Depression Total Score: 0 01/06/20 2:19 PM EDT A fall risk assessment has been complete d for the patient 01/05/2025 2:18 PM EDT A Body Mass Index follow-up plan has been documented for the patient 01/05/2025 4:30 PM EDT documented as of this encounter Care Teams Sprayer Machine Relationship Specialty Start Date End Date Jaron Bahena MD [address] [place] [address] PCP - General 10/15/20 Keisha Blum APRN [address] [place] [id number] Nurse Practitioner Urology 01/05/25 documented as of this encounter
--- OUTSIDE RECORDS SUMMARY | 2025-02-03 10:55 | XMS_ITS | Patient Health Record ---
Author Organization [facility] Address [address] [facility] [address] [place] [address] Care Team Providers Care Veterinary Microbiologist Name Role Phone Jaron Bahena Primary Care Provider Migration, Provider Unavailable Unavailable Allergies Allergen (clinical drug ingredient) Drug/Non Drug Allergy documented on EMR Reaction Allergy Type Onset Date Status Sulfamethoxazole Unknown Drug Allergy Active Results Component Value Reference Range Notes CTA : Head Reviewed date:12/25/2024 02:53:32 PM Interpretation: Performing Lab: Notes/Report: COMPREHENSIVE METABOLIC PANE L ([id number]) Reviewed date:08/07/2024 08:49:11 AM Interpretation: Performing Lab:CB, [facility] [id number] [facility] Marco Bonds Notes/Report: NON-FASTING; NON-FASTING; NON-FASTING; NON-FASTING [...] 16 10-35 U/L ALT 11 9-46 U/L LIPID PANEL, STANDARD (7600) Reviewed date:08/07/2024 08:49:10 AM Interpretation: Performing Lab:CB, [facility] [address], [place] Marco Bonds Notes/Report: NON-FASTING; NON-FASTING; NON-FASTING; NON-FASTING FASTING:YES FASTING: YES CHOLESTEROL, TOTAL 132 <200 mg/dL HDL CHOLESTEROL 51 > OR = 40 mg/dL TRIGLYCERIDES 122 <150 mg/dL LDL-CHOLESTEROL 61 Reference range: <100 Desirable range <100 mg/dL for primary prevention; <70 mg/dL for patients with CHD or diabetic patients with > or = 2 CHD risk factors. LDL-C is now calculated using the Milad-Cain calculation, which is a validated novel method providing better accuracy than the Friedewald equation in the estimation of LDL-C. Milad SS et al. MEGAN. 2013;310(19): 9117-9409 (http://education.StrangeLogic/faq/DBN613) CHOL/HDLC RATIO 2.6 <5.0 (calc) NON HDL CHOLESTEROL 81 <130 mg/dL (calc) For patients with diabetes plus 1 major ASCVD risk factor, treating to a non-HDL-C goal of <100 mg/dL (LDL-C of <70 mg/dL) is considered a therapeutic option. Microalbumin (In-House) Reviewed date:08/05/2024 01:45:26 PM Interpretation:Normal Performing Lab: Notes/Report: Normal ALB 30mg CRE 100mg A:C <30mg CBC (INCLUDES DIFF/PLT) (639 9) Reviewed date:08/07/2024 08:49:11 AM Interpretation: Performing Lab:CB, [facility] [id number] [facility] Marco Bonds Notes/Report: NON-FASTING; NON-FASTING; NON-FASTING; NON-FASTING [...] MPV 10.2 7.5-12.5 fL ABSOLUTE NEUTROPHILS 5099 9322-1912 cells/uL ABSOLUTE LYMPHOCYTES 7333 506-5785 cells/uL ABSOLUTE MONOCYTES 469 200-950 cells/uL ABSOLUTE EOSINOPHILS 87 15-500 cells/uL ABSOLUTE BASOPHILS 27 0-200 cells/uL NEUTROPHILS 76.1 LYMPHOCYTES 15.2 MONOCYTES 7.0 EOSINOPHILS 1.3 BASOPHILS 0.4 HEMOGLOBIN A1c (496) Reviewed date:08/07/2024 08:49:11 AM Interpretation: Performing Lab:CB, [facility] [address] [facility] Marco Bonds Notes/Report: NON-FASTING; NON-FASTING; NON-FASTING; NON-FASTING [...] diagnosis of diabetes in children. According to [place] Diabetes Association (ADA) guidelines, hemoglobin A1c <7.0% represents optimal control in non- diabetic patients. Different metrics may apply to specific patient populations. Standards of Medical Care in Diabetes(ADA). CT Scan : Head, with/without contrast Reviewed date:12/31/2024 12:57:36 PM Interpretation: Performing Lab: Notes/Report: M-BUN & Creatinine Reviewed date:01/09/2025 08:38:55 PM Interpretation: Performing Lab: Notes/Report: BUN 35 9-20 mg/dl CREATT 1.50 0.66-1.25 mg/dl GFRAA 55 >60 ML/MIN EGFR 45 >60 ml/min Medications Medication SIG (Take, Route, Frequency, Duration) Notes Start Date End Date Status Farxiga 10 MG 1 tab(s) orally once a day; Duration: 90 days 12/11/2023 Active Carbidopa-Levodopa 25-100 MG 1 tab(s) orally once a week; Duration: 90 days 11/15/2021 Active Pantoprazole Sodium 40 MG Take 1 tablet by mouth once daily; Duration: 90 Active Tamsulosin HCl 0.4 MG 1 cap(s) orally once a day; Duration: 90 days 04/08/2024 Active Myrbetriq 50 MG 1 tablet Orally Once a day; Duration: 90 days 12/30/2024 Active Atorvastatin Calcium 40 MG 1 tab(s) orally once a day; Duration: 90 days Active Lisinopril 5 MG Take 1 tablet by mouth once daily; Duration: 90 Active Levothyroxine Sodium 50 MCG 1 tab(s) orally once a day; Duration: 90 days Active Allopurinol 100 MG 1 tab(s) orally once a day; Duration: 90 days Active amLODIPine Besylate 5 MG 1 tab(s) orally once a day; Duration: 90 days Active ACCU CHECK GLUCOMETER USE DIRECTED E11.9 *Ple ase review for potential replacement for e-prescription and drug interaction check* 05/07/2017 Active ACCU CHECK SOFT CLICK LANCETS DIRECTED ONCE DAILY; Duration: 30 DAYS E11.9 *Please review for potential replacement for e-prescription and drug interaction check* 05/07/2017 Active Gemtesa 75 MG 1 tablet Orally Once a day Active GLUCOMETER WITH LANCETS AND TEST STRIPS DX: E11.9 DIRECTED TWICE A DAY *Please review for potential replacement for e-prescription and drug interaction check* 06/05/2014 Active B-12 2500 MCG 1 tab(s) sublingually [...] once a day; Duration: 30 day(s) Active Immunizations Vaccine Route Administration Date Status Comme nts Adacel (Tdap) Unknown 04/26/2011 Administered Arexvy IM Intramuscular 04/10/2023 Administered Boostrix IM Intramuscular 02/08/2018 Administered Covid Moderna Unknown 07/08/2020 Administered Covid Moderna Unknown 08/05/2020 Administered Fluvirin--Influenza vaccine 3+ year Unknown 03/08/2009 Administered Fluzone High Dose IM Intramuscular 03/05/2018 Administered Fluzone High Dose IM Intramuscular 03/11/2019 Administered Fluzone High Dose IM Intramuscular 04/06/2020 Administered Fluzone High Dose IM Intramuscular 02/08/2021 Administered Fluzone High Dose IM Intramuscular 03/14/2022 Administered Fluzone High Dose IM Intramuscular 04/10/2023 Administered Fluzone High Dose IM Intramuscular 04/08/2024 Administered Influenza (Fluzone)--Medicare only Unknown 04/14/2013 Administered Influenza (Fluzone)--Medicare only IM Intramuscular 04/10/2014 Administered Influenza (Fluzone)--Medicare only IM Intramuscular 05/11/2015 Administered Influenza (Fluzone)--Medicare only IM Intramuscular 03/14/2016 Administered Influenza (Fluzone)--Medicare only IM Intramuscular 03/06/2017 Administered Influenza Intradermal Unknown 06/19/2011 Administered Pneumovax-23 (pneumococccal vaccine polyvalent)2 years or older Unknown 05/07/2013 Administered Prevnar PCV-13 (Pneumococcal conjugate 13) IM Intramuscular 09/11/2017 Administered Prevnar PCV-20 (Pneumococcal conjugate 20) IM Intramuscular 09/12/2022 Administered SHINGRIX Unknown 01/04/2023 Administered SHINGRIX IM Intramuscular 04/10/2023 Administered Social History Tobacco Use: Social History Observation Description Date Details (start date - stop date) Former Smoker NA - NA Smoking: Question Answer Notes Are you a: former smoker How long has it been since you last smoked? 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) Active confirmed Problem Type 2 diabetes mellitus with other specified complication (E11.69) Active confirmed Problem Mixed hyperlipidemia (627957404) Mixed hyperlipidemia (E78.2) Active confirmed Problem Hypothyroidism (14869567) Hypothyroidism (acquired) (E03.9) Active confirmed Problem Dysphagia (12446974) Dysphagia (R13.10) Active confirmed Problem General examination of patient (721268903) Routine medical exam (Z00.00) Active confirmed Problem Essential hypertension (44630954) Hypertension, essential (I10) Active confirmed Problem Psoriasis (6835096) Psoriasis (L40.9) Active co nfirmed Problem Seasonal allergy (047558116) Seasonal allergies (J30.2) Active confirmed Problem Cardiac pacemaker in situ (529028530) Pacemaker (Z95.0) Active confirmed Problem Hyperlipidemia (11974666) Hyperlipidemia, unspecified (E78.5) Active confirmed Problem Osteoarthritis of knee (621229138) Primary osteoarthritis of right knee (M17.11) Active confirmed Problem Obstructive sleep apnea syndrome (14573963) RHETT (obstructive sleep apnea) (G47.33) Active confirmed Problem Urge urinary incontinence (44154615) Urge urinary incontinence (N39.41) Active confirmed Problem Hearing loss (35487224) Hearing loss, unspecified hearing loss type, unspecified laterality (H91.90) Active confirmed Problem Thyromegaly (5640773) Thyromegaly (E01.0) Active confirmed Problem Seasonal allergic rhinitis (172120609) Seasonal allergic rhinitis, unspecified trigger (J30.2) Active confirmed Problem Chronic kidney disease stage 3A (422172473) Stage 3a chronic kidney disease (N18.31) Active confirmed Problem Chronic kidney disease stage 3A (disorder) (570467143) Stage 3a chronic kidney disease (CKD) (N18.31) Active confirmed Problem Parkinson's disease (disorder) (52754669) Parkinson's disease without dyskinesia, unspecified whether manifestations fluctuate (G20.A1) Active confirmed Vital Signs Heart Rate 68 /min 12/30/2024 Temperature 98 degrees Fahrenheit 12/30/2024 Oximetry 98 11/25/2024 Blood pressure diastolic 72 mm Hg 12/30/2024 Height 69 in 12/30/2024 Blood pressure systolic 118 mm Hg 12/30/2024 Weight 186 lbs 12/30/2024 BMI 27.46 kg/m2 12/30/2024 Encounters Encounter Location Date [facility] [address] [place] [address] 09/06/2024 Provider Migration Formerly [facility] [address] [address] 04/08/2024 Jaron Besreese Immunization(s) administered Z23 ; Parkinson's disease without dyskinesia, unspecified whether manifestations fluctuate G20.A1 ; Nocturia R35.1 ; Hypertension, essential I10 ; Type 2 diabetes mellitus with other specified complication E11.69 ; Stage 3a chronic kidney disease (CKD) N18.31 and Routine medical exam Z00.[address] [address] 08/05/2024 Jaronjomar Bahena Type 2 diabetes oliva itus with other specified complication E11.69 ; Mixed hyperlipidemia E78.2 ; Stage 3a chronic kidney disease (CKD) N18.31 and Parkinson's disease without dyskinesia, unspecified whether manifestations fluctuate G20.A1 [address] [address] 11/25/2024 Jaron Besson Pacemaker Z95.0 ; Exertional dyspnea R06.09 and Parkinson's disease without dyskinesia, unspecified whether manifestations fluctuate G20.A1 [address] [address] 12/09/2024 Jaron Besson Urge urinary incontinence N39.41 ; Hypertension, essential I10 and Parkinson's disease without dyskinesia, unspecified whether manifestations fluctuate G20.A1 [address] [address] 12/30/2024 Jaron Besson Atrioventricular blo ck, complete I44.2 ; Hypertension, essential I10 ; Parkinsons disease G20 and Nocturia R35.[address] [facility] [address] [place] [address] [address] [place] [address] 06/18/2024 Jaron Besson [facility] [address] [address] 07/14/2024 Jaron Besson [facility] [address] [address] 07/28/2024 Jaron Besson [facility] [address] [address] 09/24/2024 Jaron Besson Nocturia R35.1 [facility] [address] [place], [place] [address] 01/14/2025 Jaronjomar Bahena Parkinson's disease without dyskinesia, unspecified whether manifestations fluctuate G20.A1 and Dysphagia R13.10 [facility] [address] [address] 01/14/2025 Jaron Besson [facility] [address] [address] 02/03/2025 Jaron Bahena Assessments Encounter Date Diagnosis (ICD Code) Assessment Notes Treatment Notes Treatment Clinical Notes Section Notes 04/08/2024 Immunization(s) administered (ICD-10 - Z23) 04/08/2024 Parkinson's disease without dyskinesia, unspecified whether manifestations fluctuate (ICD-10 - G20.A1) Will follow with [facility] neuro. 08/05/2024 Type 2 diabetes mellitus with other specified complication (ICD-10 - E11.69) Microalbumin done today and is normal. No changes in meds at this point. Will reevaluate with labs. Please note I have done labs to monitor his chronic medical problems as noted below and I will review all labs personally 08/05/2024 Mixed hyperlipidemia (ICD-10 - E78.2) 09/24/2024 Nocturia (ICD-10 - R35.1) 11/25/2024 Pacemaker (ICD-10 - Z95.0) EKG done [...] weeks. Consider further workup at that point. 12/09/2024 Hypertension, essential (ICD-10 - I10) Dizziness with orthostasis. Stop beta-eder. Currently on low dose. Cardiology visit from last week were reviewed. 12/09/2024 Urge urinary incontinence (ICD-10 - N39.41) Urinary incontinence symptoms have been better on Gemtesa. No changes in plan, will continue this and prescribe 12/30/2024 Atrioventricular block, complete (ICD-10 - I44.2) Heart rate stable. Stay off beta-eder, on pacemaker 12/30/2024 Hypertension, essential (ICD-10 - I10) - BP well controlled, checks daily at home - Metoprolol discontinued due to hypotension and dizziness, now improved - Continue lisinopril 5mg 01/14/2025 Parkinson's disease without dyskinesia, unspecified whether manifestations fluctuate (ICD-10 - G20.A1) 12/30/2024 Parkinsons disease (ICD-10 - G20) - [...] referral placed and plan to go to [facility], patient has been drooling and having oropharyngeal dysphagia. 01/14/2025 Dysphagia (ICD-10 - R13.10) 12/09/2024 Parkinson's disease without dyskinesia, unspecified whether manifestations fluctuate (ICD-10 - G20.A1) Sinemet caused some side effects but helping tremor. neurology note reviewed. They want imaging of head. Patient does not wish to have MRI scan done because of his concern about his pacemaker. Will do CT along with CTA, send this to and see if this might be helpful. 11/25/2024 Parkinson's disease without dyskinesia, unspecified whether manifestations fluctuate (ICD-10 - G20.A1) I reviewed urology notes. I have asked them to discuss with cardiology tomorrow his pacemaker and where MRI can safely be done. He will see neurology at back in January and will follow along about whether or not further medication will be trialed. To me patient's tremor seems worse off Sinemet. 08/05/2024 Stage 3a chronic kidney disease (CKD) (ICD-10 - N18.31) 04/08/2024 Nocturia (ICD-10 - R35.1) Patient getting up every 2 hours to urinate. Start Tamsulosin nightly. 04/08/2024 Hypertension, essential (ICD-10 - I10) Well controlled, continue current regimen. 08/05/2024 Parkinson's disease without dyskinesia, unspecified whether manifestations fluctuate (ICD-10 - G20.A1) Seems to be in a fairly stable and safe environment from his Parkinson's. Will follow with neurology. Have reviewed neurology consult notes and has appointment scheduled 12/30/2024 Nocturia (ICD-10 - R35.1) - Gemtesa helping but copay very expensive, provided samples - Sent Rx for Mybetriq, may be more affordable - Has appointment with urology 01/0504/08/2024 Type 2 diabetes mellitus with other specified complication (ICD-10 - E11.69) Well controlled, continue current regimen. 04/08/2024 Stage 3a chronic kidney disease (CKD) (ICD-10 - N18.31) Continue use of Farxiga. 04/08/2024 Routine medical exam (ICD-10 - Z00.00) HRA reviewed, no signs of cognitive impairment. 3/3 word recall Depression screening negative Up-to-date on RSV, shingles, pneumonia vaccinations, received flu vaccination today. Great functional status, no falls. Colonscopy was done within the last year. Stopped smoking 15-16 years ago, not eligible for lung cancer screening. Plan Of Treatment Pending Test Test Name Order Date Blood Sugar 06/02/2014 Sleep Study 12/24/2018 Physical Therapy 05/22/2017 Occupational Therapy : Eval & Treatment 06/01/2017 H-CBC with AUTO DIFF 04/27/2015 H-CBC with AUTO DIFF 06/29/2015 H-CBC with AUTO DIFF 10/15/2015 H-CBC with AUTO DIFF 09/11/2016 H-CBC with AUTO DIFF 02/15/2017 H-CMP 09/11/2016 H-CMP 06/06/2016 H-CMP 10/15/2015 H-CMP 06/29/2015 H-CMP 04/27/2015 H-CMP 02/15/2017 H-CMP 06/01/2017 H-LIPID PANEL 06/01/2017 H-LIPID PANEL 04/27/2015 H-LIPID PANEL 02/15/2017 H-LIPID PANEL 06/29/2015 H-LIPID PANEL 10/15/2015 H-LIPID PANEL 06/06/2016 H-LIPID PANEL 09/11/2016 H-HGBA1C 02/15/2017 H-HGBA1C 09/11/2016 H-HGBA1C 06/06/2016 H-HGBA1C 10/15/2015 H-HGBA1C 04/27/2015 H-HGBA1C 06/29/2015 H-HGBA1C 06/01/2017 C-CBC 01/16/2014 C-CMP 01/16/2014 C-LIPID PANEL 01/16/2014 C-URIC ACID 01/16/2014 C-PSA 01/16/2014 C-HGBA1C 01/16/2014 M-Complete Blood Count Auto Diff 019 M-Complete Blood Count Auto Diff 018 M-Complete Blood Count Auto Diff 019 M-Complete Blood Count Auto Diff 018 M-Comprehensive Metabolic Panel 12/28/19 18 M-Comprehensive Metabolic Panel 10/30/19 19 M-Comprehensive Metabolic Panel 08/13/19 19 M-Comprehensive Metabolic Panel 02/25/20 19 M-Comprehensive Metabolic Panel 02/09/20 18 M-Hemoglobin A1C 02/08/2018 M-Hemoglobin A1C 02/24/2019 M-Hemoglobin A1C 08/12/2018 M-Hemoglobin A1C 10/29/2018 M-Hemoglobin A1C 12/27/2017 M-Uric Acid 08/12/2018 M-Lipid Panel 10/29/2018 M-Lipid Panel 08/12/2018 M-Lipid Panel 02/24/2019 M-Lipid Panel 12/27/2017 M-Thyroid Panel 10/29/2018 M-Thyroid Panel 12/12/2018 M-Thyroid Stimulating Hormone 02/24/2019 MODIFIED BARIUM SWALLOW 01/14/2025 Future Test Test Name Order Date H-CMP 01/20/2015 H-LIPID PANEL 01/20/2015 H-HGBA1C 01/20/2015 H-LIPID PANEL 06/05/2017 M-Complete Blood Count Auto Diff 018 M-Comprehensive Metabolic Panel 04/29/20 18 M-Hemoglobin A1C 04/29/2018 M-Uric Acid 04/29/2018 M-Lipid Panel 04/29/2018 Next Appt Details Provider Name:Jaron Bahena, 02/24/2025 09:45:00 AM, [address] [facility] [address], [place], [address], Insurance Providers Payer Name Payer Address Payer Phone Subscriber Number Group Number Insured Name Patient Relationship to Insured Coverage Start Date Coverage End Date [employer] [address] [place] [address] [id number] Briseyda Hector Jr Self - patient is the insured Medications Administered Medication Instructions Date of Administration Dosage Notes Kenalog 40mg 12/04/2016 40 mg Kenalog 40mg 06/12/2017 40 mg Kenalog 11/16/2015 1 mL Medical (General) History Medical History History ICD Code Pacemaker-bradycardia Former smoker - Negative low-dose CT sca n 09/24 diabetes [id number] ng diagnosed spring 2014 - dilated eye [...]
--- OUTSIDE RECORDS SUMMARY | 2025-02-03 10:55 | XMS_ITS | Encounter Summary ---
Author Organization Healthcare Address [address] [place] [address] Care Team Providers Care House Worker General Name Role Phone Jaron Bahena MD Primary Care Provider [phone] Encounter Details Date Type Department Care Team (Latest Contact Info) Description 12/29/2024 Travel Social History Tobacco Use Types Packs/Day [...] Description 04/07/2025 10:10 AM EST [facility] Visit [facility] [address] [place] [address] NoNai silvasa M, INTERIOR DESIGN PROFESSOR [address] [place] [address] documented as of this encounter Visit Diagnoses Not on filedocumented in this encounter Additional Health Concerns Assessment Noted Time A fall risk assessment has been complete d for the patient 12/29/2024 9:39 AM EDT A Body Mass Index follow-up plan has been documented for the patient 12/30/2024 4:19 PM EDT documented as of this encounter Care Teams House Worker General Relationship Specialty Start Date End Date Jaron Bahena MD [address] [place] [address] PCP - General 10/15/20 documented as of this encounter
--- OUTSIDE RECORDS SUMMARY | 2025-02-03 10:55 | XMS_ITS | Clinical Summary ---
Author Organization [facility] Address [address] [place] [address] Care Team Providers Care Representative Name Role Phone Jaron Bahena MD Primary Care Provider [phone] Keisha Blum CELLARS SUPERVISOR Unavailable [phone] Allergies Active Allergy Reactions Criticality Noted Date [...] tablet Take 2 tablets by mouth daily. 5 Active atorvastatin (Lipitor) 40 MG tablet Take 1 tablet by mouth 1 time each day. Active cyanocobalamin (Vitamin B-12) 2500 MCG tablet Take 500 mcg by mouth 1 time each day. Active lisinopril 5 MG tablet Take 1 tablet by mouth daily. 4 Active levothyroxine (Synthroid, Levoxyl) 50 MCG tablet Take 1 tablet by mouth daily. 4 Active pantoprazole (Protonix) 40 MG EC tablet Take 1 tablet by mouth 1 time each day. 4 Active metoprolol succinate XL (Toprol-XL) 50 MG 24 hr tablet Take 25 mg by mouth daily. 4 Active tamsulosin (Flomax) 0.4 MG 24 hr capsule Take 1 capsule by mouth daily. 4 Active allopurinol (Zyloprim) 100 MG tablet Take 1 tablet by mouth daily. Active multivitamin-mi nerals-folic acid-coenzyme q10 (Preservision AREDS 2) capsule Take 1 capsule by mouth daily. Active amLODIPine (Norvasc) 5 MG tablet Take 1 tablet by mouth daily. Active amantadine (Symmetrel) 100 MG tablet daily. Active mirabegron ER (Myrbetriq) 50 MG tabletIndicatio ns:Urinary urgency,Urinary frequency Take 1 tablet by mouth 1 (one) time each day at the same time. 90 tablet 3 5 01/06/20 26 Active Vibegron 75 MG tablet Take 75 mg by mouth 1 time each day. 01/06/20 Discontinu ed(Cost of medication ) mirabegron ER (Myrbetriq) 50 MG tablet 1 (one) time each day at the same time. 01/06/20 Discontinu ed(Reorder ) Active Problems No known active problems Encounters Date Type Department Care Team Description 01/05/2025 2:30 PM EDT Consult [facility] [address] [place] [address], [address] [place] [address] Keisha Blum APRN Urinary urgency (Primary Dx); Urinary frequency 01/05/2025 Telephone [facility] [address] [place] [address] David Thurston, PharmD 01/05/2025 Travel 12/29/2024 9:40 AM EDT Office Visit [address], [address] [place] [address] Jeffery Navarrete MD Parkinson's disease 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 (CMS/HCC) (Primary Dx) 12/29/2024 Travel 11/17/2024 8:20 AM EDT Consult [address], [address] [place] [address] Jeffery Navarrete MD Dementia associated with other underlying disease, with psychotic disturbance, unspecified dementia severity (Primary Dx); Parkinson's disease 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 (CMS/HCC); Urinary frequency 11/17/2024 Telephone [facility] [address], [address] [place] [address] Meenu Hernandez 11/17/2024 Travel 11/12/2024 Telephone [facility] [address], [address] [place] [address] Jeffery Navarrete MD 11/12/2024 Telephone [facility] [address], [address] [place] [address] Jeffery Navarrete MD from Last 3 Months [...] Mass Index 23.97 01/05/2025 2:24 PM EDT Plan of Treatment Upcoming Encounters Date Type Department Care Team (Late st Contact Info) Description 04/07/2025 10:10 AM EST Office Visit [facility] [address], [address] [place] [id number] Marilynnshira Keisha M, CELLARS SUPERVISOR [address] [facility] [address] [place] [address] Health Maintenance Due Date Last Done Comments [facility]-Hepatitis C Screening 1945 [facility]-Medicare Annual Wellness (AWV) 1945 [facility]-/Child/Adol SDOH Screenings 1945 [facility]- SDOH Screenings 1965 [facility]-Adult SDOH Screenings 1965 [id number] Vaccine ( season) 2024 03/31/2021, 08/05/2020, 07/08/2020 [facility]-Influenza Vaccine (#1) 02/02/202504/08, 04/10/2023, 03/14/2022, Additional history exists [facility]-Depression Screening 01/05/2026 01/05/2025, 0809/2024 [facility]-DTaP,Tdap,and Td Vaccines (3 - Td or Tdap) 02/09/2028 02/08/2018, 04/26/2011 [facility]-Pneumococcal Vaccine: 50+ Years Completed 09/11/2017, 05/07/2013 [facility]-RSV Vaccine: 60+ Years or Completed 04/10/2023 [facility]-Zoster Vaccines Completed 04/10/2023, HPV Vaccines Aged Out No longer eligi [...] URINALYSIS DIPSTICK Routine 01/05/2025 2:21 PM EDT VITAMIN B12, SERUM Routine 11/17/2024 9: 52 [...] (CMS/HCC) from Last 3 Months Results * POC US Bladder Volume (01/05/2025 2:33 PM EDT) Pathologist [facility] Urine, Volume 1 mL IMAGING Anatomical Region Laterality Modality Other us Keisha M Noomen CELLARS SUPERVISOR IMG POINT OF CARE ULTRASOUN D Final Result * (ABNORMAL) POCT URINALYSIS DIPSTICK (01/05/2025 2:21 PM EDT) POCT Urine Color Yellow 01/05/2025 2:22 PM EDT [facility] POCT Urine Clarity Clear 01/05/2025 2:22 PM EDT [facility] POCT Urine Glucose Negative Negative mg/dL 01/05/2025 2:22 PM EDT [facility] POCT Urine Bilirubin Negative Negative mg/dL 01/05/2025 2:22 PM EDT [facility] POCT Urine Ketones Trace(A) Negative mg/dL 01/05/2025 2:22 PM EDT [facility] POCT Urine Specific [place] 1.020 1.005 - 1.030 01/05/2025 2:22 PM EDT [facility] POCT Urine Blood Negative Negative 01/05/2025 2:22 PM EDT [facility] POCT pH, Urine 5.5 5.0 - 8.0 01/05/2025 2:22 PM EDT [facility] POCT Protein, Urine Negative Negative mg/dL 01/05/2025 2:22 PM EDT [facility] POCT Urobilinogen, Urine 1.0 0.2, 1.0 EU/dL 01/05/2025 2:22 PM EDT [facility] POCT Nitrite, Urine Negative Negative 01/05/2025 2:22 PM EDT [facility] POCT Urine Leukocyte Esterase Negative Negative 01/05/2025 2:22 PM EDT [facility] Urine 01/05/2025 2:21 PM EDT 01/05/2025 2:22 PM EDT us Keisha Blum CELLARS SUPERVISOR LAB POINT OF CARE T EST DOCKED DEVICE UNSOLICITED RESULTS Final Result [facility] [address] [place], [place] * RPR With Reflex to Titer (Those With Known Syphilis) (11/17/2024 9:52 AM EDT) Rapid Plasma Reagin Nonreactive Non Reactive 11/18/2024 1:20 AM EDT [facility] Blood Venous blood specimen / Unknown Venipuncture / Unknown 11/17/2024 9:52 AM EDT 11/17/2024 9:53 AM EDT us Jeffery Navarrete MD LAB BLOOD ORDERABLES Final Resul t [facility] [address] [place] [address] * TSH (11/17/2024 9:52 AM EDT) Thyroid Stimulating Hormone, Plasma 2.12 0.40 - 4.20 uIU/mL 11/17/2024 11:25 AM EDT [facility] Blood Venous blood specimen / Unknown Venipuncture / Unknown 11/17/2024 9:52 AM EDT 11/17/2024 9:53 AM EDT Jeffery Navarrete MD LAB BLOOD ORDERABLES Final Resul t [facility] [address] [place] [address] * Folate (11/17/2024 9:52 AM EDT) Folate, Serum >20.0 >4.6 ng/mL 11/17/2024 12:22 PM EDT [facility] Blood Venous blood specimen / Unknown Venipuncture / Unknown 11/17/2024 9:52 AM EDT 11/17/2024 9:53 AM EDT Jeffery Navarrete MD LAB BLOOD ORDERABLES Final Resul t Performing Organization Address City/[facility]/ZIP Co de Phone Number [facility] [address] [place] [address] * Vitamin B12, Serum (11/17/2024 9:52 AM EDT) Vitamin B12, Serum 865 210 - 1,033 pg/mL 11/17/2024 12:22 PM EDT [facility] Blood Venous blood specimen / Unknown Venipuncture / Unknown 11/17/2024 9:52 AM EDT 11/17/2024 9:53 AM EDT Jeffery Navarrete MD LAB [place]OD [place] [address] from Last 3 Months Insurance [employer] Care Teams Representative Relationship Specialty Start Date End Date Jaron Bahena MD [address] [place] [address] PCP - General 10/15/20 Keisha Blum APRN [address] [place] [address] Nurse Practitioner Urology 01/05/25
--- OUTSIDE RECORDS SUMMARY | 2025-02-03 10:55 | XMS_ITS | Encounter Summary ---
Author Organization Healthcare Address [facility] [place] [address] Care Team Providers Care Purchasing Supervisor Name Role Phone Jaron Bahena MD Primary Care Provider [phone] Keisha Blum DRY CHAIN OFFBEARER Unavailable [phone] Encounter Details Date Type Department Care Team (Latest Contact Info) Description 01/05/2025 Travel Social History Tobacco Use Types Packs/Day [...] much Not at all 01/05/2025 2:19 PM MARITAT Tao Velázquez Feeling tired or having merline le energy Not at all 01/05/2025 2:19 PM EDT Toa Velázquez Poor appetite or overeating Not at [...] all 01/05/2025 2:19 PM EDT Tao Velázquez Moving or speaking so slowly that other people could have noticed? Or the opposite - being so fidgety or restless that you have been moving around a lot more than usual. Not at all 01/05/2025 2:19 PM EDT Tao Velázquez Thoughts that you would be b queenie off or hurting yourself in some way Not at all 01/05/2025 2:19 PM EDT Tao Velázquez Patient Health Questionnaire -9 Score 0 01/05/2025 2:19 PM EDT Tao Velázquez documented as of this encounter Plan of Treatment Upcoming Encounters Date Type Department Care Team (Late st Contact Info) Description 04/07/2025 10:10 AM EST Office Visit [facility] [address], [address] [place] [address] Keisha Blum M, DRY CHAIN OFFBEARER [address] [place] [address] documented as of this encounter [...] documented as of this encounter Care Teams Purchasing Supervisor Relationship Specialty Start Date End Date Jaron Bahena MD [address] [place] [address] PCP - General 10/15/20 Keisha Blum APRN [address] [id number] Nurse Practitioner Urology 01/05/25 documented as of this encounter
--- NOTE | 2025-02-03 15:37 | HMH.SLMBS2 ---
Speech & Language Evaluation Speech/Lang Modified Barium Swallow Start: 02/03/25 15:28 Freq: once Status: Complete Protocol: Document 02/03/25 15:28 PHILLIP (Rec: 02/03/25 15:37 [facility] TOOL SHARPENER Evaluation Information TOOL SHARPENER Evaluation Information Date of Evaluation: 02/03/25 Time of Evaluation: 10:45 Evaluation Type Initial Certification Reason for Referral Parkinsons per MD order Does Patient Qualify Yes for Service Qualify/Failure Based on clinical observations made throughout MBSS, pt Comment would benefit from skilled speech therapy services to implement dysphagia exercises in order to improve efficiency of the swallow. MBS Recommendations Recommendation PHYSICIAN CERTIFICATION: The specified therapy services are required, authorized, and reviewed every 30 days. Patient will be Seen 1 # Times/Week For # of Weeks 12 Plan Anticipate reaching 8 STG in # weeks Anticipate reaching 12 LTG in # weeks Pt/Guardian verbally Yes ack understanding of dx/prognosis/ goals Diet Dietary Regular,Thin Liquids Recommendations SL Swallow Alt bite w/sip thru meal,Standard Aspiration Prec., Guidelines Reflux precautions Treatment/Strategies Treatment Oral Motor Exercises,Base of Tongue Exercises, Recommendations Pharyngeal Resistive Exer,Compens. Strategy Educat. Strategy/Precaution Sitting Upright (90 deg),Chin Tuck,Double Swallow, Recommended Supraglottic Swallow,No Straw,Small Bites and Sips, Alternate Liquids/Solids Referral/Other Recommended GI Consult Referrals Other c/o globus sensation and poor UES opening, as well as Recommendations retrograde flow observation during MBSS TOOL SHARPENER Patient History Section TOOL SHARPENER Patient History Primary Medical Pt is a pleasant 79 year old male seen at [facility] for a History MBSS following recommendation by TOOL SHARPENER after reports of difficulty with certain textures and consistencies of food during outpatient evaluation. Does Patient have No Reflux or GERD? Does Patient Yes Experience Coughing or Choking Episodes? Does Patient Avoid Yes Certain Food Textures/ Consistencies? Food Textures/ difficulty with more fibrous meats and bread Consistencies Comment Does Patient Utilize No Compensatory Strategies During Meals? Has Patient No Experienced Significant Weight Loss? Does Pt have Hx of No Recurrent Pneumonias or Respiratory Infections? Has Patient Noticed Yes Change in Vocal Quality? Vocal Quality Parkinsons Comment Mod Barium Swallow Study Patient Orientation Patient Orientation Person,Place,Time,Situation Oral Expression Mild Impairment Ability Ability to Follow Good Directions Is Patient able to Yes Perform Volitional Throat Clear? Is Patient able to Yes Perform Volitional Cough? Is Patient able to Yes Manage Secretions Independently? Mod Barium Swallow Set Up Radiologist Rafael Gtz Patient Presentation Awake,Alert,Appropriate,Follows Commands : Bolus Consistencies Thin Liquids,Pudding,Puree,Mechanical Soft,Regular,Pill Trialed: (Barium Tablet) MBSS Observations Consistency & Strategy Trial Regular Penetration/ 3 Aspiration Scale PAS Amount Trace Pharyngeal Residual 10-49% Regular Half Bolus Penetration/ 2 Aspiration Scale PAS Amount Trace Pharyngeal Residual 0-9% Mechanical Soft Penetration/ 3 Aspiration Scale PAS Amount Trace Pharyngeal Residual 10-49% Mechanical Soft Half Bolus Penetration/ 2 Aspiration Scale PAS Amount Trace Pharyngeal Residual 0-9% Puree Full Spoon Penetration/ 1 Aspiration Scale PAS Amount Trace Pharyngeal Residual 0-9% Puree Half Spoon Penetration/ 1 Aspiration Scale PAS Amount Trace Pharyngeal Residual 0-9% Pudding Full Spoon Penetration/ 2 Aspiration Scale PAS Amount Trace Pharyngeal Residual 0-9% Pudding Half Spoon Penetration/ 1 Aspiration Scale PAS Amount Trace Pharyngeal Residual 0-9% Thin Straw Sip Penetration/ 3 Aspiration Scale PAS Amount Trace Pharyngeal Residual 10-49% Thin Subsequent Sips from Cup Penetration/ 1 Aspiration Scale PAS Amount Trace Pharyngeal Residual 0-9% Thin Open Cup Sip Penetration/ 1 Aspiration Scale PAS Amount Neither Pharyngeal Residual 0-9% Mod Barium Swallow Impressions Oral Phase Summary & Impressions Oral Phase: Mild Impairment Impression Oral Phase: Labial Minimal Impairment Closure Oral Phase: Bolus No Impairment (WFL) Formation Pooling L/ R Oral Phase: Bolus Mild Impairment Formation Under Tongue Oral Phase: Bolus Mild Impairment Formation Scattered Loss Oral Phase: Minimal Impairment Mastication Rotary Chew Oral Phase: No Impairment (WFL) Mastication Munching Oral Phase: Minimal Impairment Mastication Lateralization Oral Phase: Lingual Minimal Impairment Movement Oral Phase: Residue Mild Impairment Clearing Pharyngeal Phase Summary & Impressions Pharyngeal Phase: Moderate Impairment Impression Pharyngeal Phase: A/ Mild Impairment P Lingual Propulsion Spills Pharyngeal Phase: Mild Impairment Base of Tongue Pharyngeal Phase: Mild Impairment Epiglottic Coverage Pharyngeal Phase: Mild Impairment Laryngeal Elevation Pharyngeal Phase: Moderate Impairment Vallecular Retention Clearing Pharyngeal Phase: Mild Impairment Pharyngeal Wall Residue Clearing Pharyngeal Phase: Mild Impairment Piriform Sinus Retention Aspiration Aspiration? No Silent Aspiration? No TOOL SHARPENER MBSS Goals MBS Transportation Planning Technician Goals Patient will utilize Double Swallow,Chin Tuck,No Straws,Alternate Bites & compensatory Sips,Sitting Upright,Small Bites & Sips,Effortful strategies with PO Swallow intake in order to meet nutrition and hydration needs for daily meals without overt signs/symptoms of aspiration. The patient will Regular,Thin Liquids tolerate the least restrictive diet with a safe/ efficient swallow to maintain adequate nutrition and hydration. ?The patient and/or Yes family will participate in further education for swallowing goals . The patient will Supraglottic Swallow,Mehnaz Maneuver,Falsetto E,HAWK, complete a home CTAR (Isometric),CTAR (Isokinetic),OME's education program of dysphagia exercises and/or complete structured swallowing therapy to improve swallow function through utilization of recommended therapy approaches MBS Short Term Goals The patient will Supraglottic Swallow,Mehnaz Maneuver,Falsetto E,HAWK, demonstrate __% CTAR (Isometric),CTAR (Isokinetic),OME's accuracy and require ____ cuing in structured swallowing therapy with the TOOL SHARPENER using the following exercises/therapy approaches and therapy assisted devices. Accuracy Percentage 80 Demonstration Cueing Requirement Moderate Pt. will tolerate Yes least restrictive diet w/o any overt s /s of aspiration & penetration independently w/ use of required compensatory strategies in order to meet nutrition & hydration needs for daily meals. Dietary Regular,Thin Liquids Recommendations: MBS Short Term Goals Compensatory Double Swallow,Chin Tuck,No Straws,Alternate Bites & Strategies: MBS Sips,Sitting Upright,Small Bites & Sips,Effortful Short Term Goals Swallow Education Instructions Discussed and reviewed results of MBSS and provided provided walk through of aspiration risks/compensatory strategies with pt and who expressed understanding . Patient/Caregiver Able to recall/restate Able to Recall Information Reinforcement needed No PHYSICIAN CERTIFICATION: I certify the specified therapy services for Briseyda Hector are required, authorized, and reviewed every 30 days.
== END 2025-02-03 23:59 | disposition home or self-care (01) ==
PROVIDERS: PCP Internal Medicine Adolescent Medicine; Visit Provider Internal Medicine Adolescent Medicine
DX: R13.10 Dysphagia, unspecified (principal); G20.A1 Parkinson's disease without dyskinesia, without mention of fluctuations
CPT/HCPCS: 74230; 92611

== ENCOUNTER 2025-02-23 09:00 | Outpatient (RCR) | payer MEDICARE, SELFPAY | END 2025-02-23 23:59 | disposition home or self-care (01) | LOC: ST 09:00 | PROVIDERS: PCP Internal Medicine Adolescent Medicine; Visit Provider Student in an Organized Health Care Education/Training Program | DX: G20.A1 Parkinson's disease without dyskinesia, without mention of fluctuations (principal) | CPT/HCPCS: 92507; 92526 ==

== ENCOUNTER 2025-02-25 10:00 | Outpatient (RCR) | payer MEDICARE, SELFPAY | END 2025-02-25 23:59 | disposition home or self-care (01) | LOC: PT 10:00 | PROVIDERS: PCP Internal Medicine Adolescent Medicine; Visit Provider Student in an Organized Health Care Education/Training Program | DX: G20.A1 Parkinson's disease without dyskinesia, without mention of fluctuations (principal) | CPT/HCPCS: 97110; 97112; 97530 ==

== ENCOUNTER 2025-03-30 09:00 | Outpatient (RCR) | payer MEDICARE, SELFPAY | END 2025-03-30 23:59 | disposition home or self-care (01) | LOC: ST 09:00 | PROVIDERS: PCP Internal Medicine Adolescent Medicine; Visit Provider Student in an Organized Health Care Education/Training Program | DX: G20.A1 Parkinson's disease without dyskinesia, without mention of fluctuations (principal); R27.0 Ataxia, unspecified ==

== ENCOUNTER 2025-04-06 09:42 | Outpatient (RCR) | payer MEDICARE, SELFPAY ==
--- NOTE | 2025-04-06 11:02 | HMH.RHREAS ---
Rehab Reassessment Rehab OP Re-assessment Start: 04/06/25 10:00 Freq: Status: Active Protocol: Document 04/06/25 10:31 ORTIZ (Rec: 04/06/25 10:59 ORTIZ [id number]) E-signed By Yara Galdamez, PT Rehab Re-assessment Subjective Subjective Pt reports he hasn't been to PT d/t having Covid and getting the Flu shot. Pt reports he was very sick but is finally started to feel better and getting back on his feet. Objective Objective Notes 5xSTS: 20 seconds without UE use. TU seconds without AD (some gait deviations noted) Coordination: Rapid alternating movements: - Toe tapping: Abnormal - Pronation/supination: Abnormal, not able to perform accurately - Toe tapping + Pronation/supination: Abnormal, not able to perform accurately - Seated mountain climber: Abnormal, not able to perform accurately - Finger opposition: Abnormal, not able to perform accurately General observation on coordination: - Pt still demo's impaired coordination that worsens with fatigue. Gait: Intermittent uneven step length. Minimal/ decreased reciprocal arm swing. Assessment Progress Assessment No Progress Assessment Notes This is pt's initial visit in 40 days d/t being ill. This is a reassessment for Briseyda Hector who presents to PT for c/o deficits related to Parkinson's Disease. Since IE, pt has been seen for 6 visits that have consisted of education and therapeutic exercises/ activities focusing on coordination, balance, and strength. Pt with good attendance to scheduled PT visits and reports adherence to HEP. Pt presents with same deficits noted upon evaluation. Progress limited by limited sessions scheduled and nature of PD. Pt would continue to benefit from skilled outpatient physical therapy to address remaining deficits and achieve LTGs. PT Patient Goals PT Short Term In 4 weeks, pt will: Patient Goals 1) Verbalize compliance with daily HEP: not met 2) Report he feels at least 40% improved in his mobility since initial evaluation: not met 3) Improve rapid alternating movements to 50% accuracy of UE/LE coordination tests to decrease dysdiadochokinesia with functional tasks: not met 4) Demo even step length during gait with minimal VCs to improve Tinetti by one point: not met 5) Stand on Uneven surface with feet together and minimal-no sway to improve functional balance: not met 6) Progress through higher level balance interventions with at most Min A: not met 7) Verbalize improved ability to button pants/shirt. not met PT Bus Person Patient No met Goals Plan Plan Continue current POC with focus on balance, coordination, and strength. Frequency of Therapy 2x weekly Duration of Therapy 6-8 weeks Time and Billing Re-Eval Time 10 Re-Eval Billing 0 Units Charge for PT No reassessment? PHYSICIAN CERTIFICATION: I certify the specified therapy services for Briseyda Sarah Hector are required, authorized, and reviewed every 30 days.
== END 2025-04-06 23:59 | disposition home or self-care (01) ==
LOC: PT 09:42
PROVIDERS: PCP Internal Medicine Adolescent Medicine; Visit Provider Internal Medicine Adolescent Medicine
DX: G20.A1 Parkinson's disease without dyskinesia, without mention of fluctuations (principal)
CPT/HCPCS: 97110; 97112; 97530